=== PATIENT | male | born 1940 | race Caucasian/White ===

== ENCOUNTER → 2022-10-18 | Outpatient (CLI) | payer SELFPAY ==
--- NOTE | 2022-10-18 07:30 | RAD_ITS ---
Examination: Orbital radiographs. INDICATION: History of metal to eye. Pre-MRI. TECHNIQUE: 2 images of the orbits were obtained. COMPARISON: None FINDINGS: No metallic foreign bodies are visualized within the orbits. The paranasal sinuses are well aerated. No suspicious bony lesions are seen. There are degenerative changes of the visualized cervical spine. RAD/Orbits for Foreign Body IMPRESSION: Degenerative changes of the cervical spine. No metallic foreign body within the orbits. Electronically Signed: Deena Smith MD at 8:14 EDT ,
--- NOTE | 2022-10-18 08:30 | MRI_ITS ---
MR Pelvis WO/W Contrast 10/18/2022 8:18 AM COMPARISON: None CLINICAL HISTORY: Elevated PSA TECHNIQUE: Standard prostate MR protocol was used before and after administration of 15 cc of IV Clariscan. FINDINGS: PSA density: PSA not provided Length of membranous urethra: 19 mm Post-biopsy hemorrhage: None Multiparametric MR evaluation: Heterogeneous appearance of the central gland is consistent with benign prostatic hyperplasia. Lesion 1: LOCATION - 1.8 x 1.6 x 1.3 cm moderately T2 hypointense mass in the right medial anterior transitional zone near apex. It is very bright on DWI and very dark on ADC map. T2 - 5 DWI - 5 DCE - inconclusive Overall PI-RADS v2 score = 5 Lesion 2: LOCATION - 1.6 x 1.8 x 1.9 cm T2 dark mass like lesions in the right lateral anterior transitional zone near apex. It is slightly bright on DWI and slightly dark on ADC map. T2 - 3 DWI - 3 DCE - inconclusive Overall PI-RADS v2 score = 3 Lesion 3: LOCATION - 1.3 x 0.6 x 1.4 cm moderately T2 hypointense mass in the left posterior peripheral zone near the apex. It is slightly bright on DWI and moderately dark on ADC map. T2 - 4 DWI - 4 DCE - inconclusive Overall PI-RADS v2 score = 4 Capsular margin and neurovascular bundle: Questionable 3 mm extracapsular extension posteriorly by lesion 3. Seminal vesicles: Questionable involvement of the left seminal vesicle by lesion 3. Lymph nodes: No lymphadenopathy in the field of view. Bones: No suspicious lesions in the field of view. MRI/Pelvis W/WO Contrast IMPRESSION: 1.8 cm PI-RADS 5 lesion in the right medial anterior TZ near apex. 1.9 cm PI-RADS 3 lesion in the right lateral anterior TZ near apex. 1.3 cm PI-RADS 4 lesion in the left posterior PZ near apex. - Questionable 3 mm extracapsular extension posteriorly by lesion 3. - Questionable involvement of the left seminal vesicle by lesion 3. -No lymphadenopathy. -No suspicious bone lesions. Electronically Signed: Jae Mcpherson MD at 17:01 EDT ,
[2022-10-18 08:31] LABS: CREATININE FINGERSTICK < 0.9 mg/dL (0.70-1.30); EGFR FINGERSTICK > 60.0000 mL/min (>60)
== END | disposition home or self-care (01) ==
LOC: MRI 07:31
PROVIDERS: PCP Physician Assistant; Referring Provider Physician Assistant; Visit Provider Physician Assistant
DX: R97.20 Elevated prostate specific antigen [PSA] (principal)
CPT/HCPCS: 70030; 72197; A9575

== ENCOUNTER → 2023-07-25 | Outpatient (CLI) | payer SELFPAY | END | disposition home or self-care (01) | PROVIDERS: PCP Physician Assistant; Referring Provider Urology; Visit Provider Urology | DX: R97.20 Elevated prostate specific antigen [PSA] (principal) | CPT/HCPCS: 36415; 84153; G0103 ==

== ENCOUNTER → 2023-08-10 | Outpatient (CLI) | payer SELFPAY ==
--- NOTE | 2023-08-10 08:00 | PROSBIL_PTH ---
PATIENT: DESHAUN TAN LOC: [facility] U#:[id number] AGE/SX: 83/M ROOM: RE08/10/[address]: Dr. Herminio Larose MD : 1940 BED: DIS: 08/10/2023 SPEC #: [id number] RECD: 08/11/23 10:18 STATUS: JOLIE REQ #: [id number] ALVA: 08/10/23 08:[address]: Herminio Larose DEPT: SURGICAL PATHOLOGY RECD BY: Hilaria Reyes ENTERED: 08/11/23 10:19 SP TYPE: PROST BX ROXANNE DR: Quentin Guerra PA-C Tissues: A - PROSTATE RIGHT B - PROSTATE RIGHT C - PROSTATE RIGHT D - PROSTATE LEFT E - PROSTATE LEFT F - PROSTATE LEFT Procedures: PROSTATE BX HEADER OPERATION: Prostate biopsy PRE-OP DIAGNOSIS: Elevated PSA TISSUE SUBMITTED: A - Right apex, B - Right mid, C - Right base, D - Left apex, E - Left mid, F - Left base MICROSCOPIC DIAGNOSIS A. Right prostate, apex, core biopsy: Prostatic adenocarcinoma. Jupiter grade: 3+3=6 Number of cores involved: 1/1 Proportion of tissue involved: ~60-70% Perineural invasion: Not identified. Greatest tumor length: 0.6cm B. Right prostate, mid, core biopsy: Prostatic tissue, negative for malignancy. Chronic inflammation. C. Right prostate, base, core biopsy: Prostatic tissue, negative for malignancy. D. Left prostate, apex, core biopsy: Prostatic adenocarcinoma. Jupiter grade: 3+4=7 Number of cores involved: 1/1 Proportion of tissue involved: ~60 % Perineural invasion: Not identified. Greatest tumor length: 0.4 cm E. Left prostate, mid, core biopsy: Prostatic adenocarcinoma. Jupiter grade: 3+3=6 Number of cores involved: 1/1 Proportion of tissue involved: ~20 % Perineural invasion: Not identified. Greatest tumor length: 0.2 cm F. Left prostate, base, core biopsy: Prostatic tissue, negative for malignancy. SJ/mr 08/14/23 COMMENT Case has been reviewed in consultation with Dr. Land who concurs with the above diagnosis. IDC:AM MICROSCOPIC DESCRIPTION Slides are reviewed. GROSS DESCRIPTION A - Received is one container designated prostate, right apex. The specimen consists of one elongated fragments of light mitchell-white soft tissue measuring 1.0 cm in length and 0.1 cm in diameter. The specimen is totally submitted in one cassette. B - Received is one container designated prostate, right mid. The specimen consists of one elongated fragments of light mitchell-white soft tissue measuring 1.0 cm in length and 0.1 cm in diameter. The specimen is totally submitted in one cassette. C - Received is one container designated prostate, right base. The specimen consists of one elongated fragments of light mitchell-white soft tissue measuring 1.1 cm in length and 0.1 cm in diameter. The specimen is totally submitted in one cassette. D - Received is one container designated prostate, left apex. The specimen consists of one elongated fragments of light mitchell-white soft tissue measuring 0.6 cm in length and 0.1 cm in diameter. The specimen is totally submitted in one cassette. E - Received is one container designated prostate, left mid. The specimen consists of one elongated fragments of light mitchell-white soft tissue measuring 1.3 cm in length and 0.1 cm in diameter. The specimen is totally submitted in one cassette. F - Received is one container designated prostate, left base. The specimen consists of one elongated fragments of light mitchell-white soft tissue measuring 0.7 cm in length and 0.1 cm in diameter. The specimen is totally submitted in one cassette. ELI/ 08/11/23 TC:0 [facility]: [id number]
== END | disposition home or self-care (01) ==
LOC: LABSPEC 16:12
PROVIDERS: PCP Physician Assistant; Referring Provider Urology; Visit Provider Urology
DX: R97.20 Elevated prostate specific antigen [PSA] (principal)
CPT/HCPCS: 88305; G0416

== ENCOUNTER → 2024-05-30 | Outpatient (CLI) | payer SELFPAY | END | disposition home or self-care (01) | PROVIDERS: PCP Physician Assistant; Referring Provider Nurse Practitioner; Visit Provider Nurse Practitioner | DX: C61 Malignant neoplasm of prostate (principal) | CPT/HCPCS: 36415; 84153 ==

== ENCOUNTER 2024-06-11 13:59 | Inpatient (IN) | payer OTHER, SELFPAY ==
[2024-06-11] VITALS (9 sets, daily range): BP systolic 127–161; BP diastolic 56–93; PULSE 73–80; RESP 14–23; TEMP 36.6–37; O2SAT 91–95; BMI 23.0; BMI 22.3
[2024-06-11 16:17] LABS: Absolute Lymphocyte Count 1.51 X10^3/uL (0.83-4.51); Absolute Neutrophil Count 5.7 X10^3/uL (2.0-7.7); Basophil# 0.05 X10^3/uL; Basophil% 0.6 % (0-1); Eosinophil# 0.14 X10^3/uL; Eosinophils% 1.7 % (0-5); Hematocrit 39.2 % (40-54); Hemoglobin 13.1 g/dL (13.0-16.5); Lymphocyte # 1.51 X10^3/ul (0.83-4.51); Lymphocyte % 18.2 % (19-41); Mean Corp Hgb Conc 33.4 g/dL (32-36); Mean Corpuscular Hgb 29.2 pg (27.0-32.0); Mean Corpuscular Volume 87.3 fL (80-94); Mean Platelet Vol. 8.8 fl (6.2-12.0); Monocyte# 0.83 X10^3/uL; NRBC Flagged by Analyzer 0 % (0-5); Neutrophil # 5.67 X10^3/uL (2.7-7.7); Neutrophil % 68.2 % (47-70); Platelet Count 284 K/mm3 (150-450); RBC Distribution Width CV 12.7 % (11.6-14.6); RBC Distribution Width SD 40.6 fl (35.1-43.9); Red Blood Count 4.49 M/mm3 (4.6-6.2); White Blood Count 8.3 K/mm3 (4.4-11.0)
[2024-06-11 16:47] LABS: Anion Gap 5 (5-15); BUN 28 mg/dL (7-18); Calcium,Total 9.1 mg/dL (8.5-10.1); Chloride 105 mmol/L (98-107); Creatinine, Serum 0.93 mg/dL (0.70-1.30); EST Glomerular Filtration Rate 82 mL/min (>60); Est Glom Filt Rate - Afr Amer 99 mL/min (>60); Estimated Creatinine Clearance 60.84 ml/min; Glucose 94 mg/dL (74-106); Potassium 4.4 mmol/L (3.5-5.1); Sodium Level 138 mmol/L (136-145)
--- NOTE | 2024-06-11 17:41 | CT_ITS ---
PROCEDURE: CTA CHEST W/WO CONTRAST REASON FOR EXAM: 83-year-old male, shortness of breath x 3 months, abnormal chest x-ray per report. History of prostate cancer diagnosed 1 year ago. TECHNIQUE: CTA imaging of the chest with intravenous contrast. 3D reconstructions. CONTRAST: Administered. COMPARISON: None. FINDINGS: Hardware: None. Lymph nodes: No axillary lymphadenopathy. Prominent mediastinal lymph nodes. Heart: Normal heart size. No pericardial effusion. Mild coronary artery and aortic valvular calcifications. RV/LV Diameter Ratio: Less than 1 Thoracic Aorta: No thoracic aortic aneurysm or dissection. Mild thoracic aortic calcifications. Pulmonary Vessels: Bilateral subsegmental pulmonary emboli (for example within the left upper lobe series 2, image 206, and within the right lower lobe series 2, image 123). Most Proximal Level of Embolus (if embolus present): Subsegmental Lungs and Airways: No secretions within the central airways. Diffuse, innumerable small 1-4 mm pulmonary nodules throughout all 5 lung lobes. Trace right and moderate left pleural effusions. Near complete consolidation of the left lower lobe. Pleura: No pneumothorax. Upper Abdomen: See same day CT abdomen pelvis. Bones: Lytic osseous lesions throughout the thoracic vertebral bodies, the largest within the T2 vertebral body with invasion posteriorly into the spinal canal (series 2, image 282). CT/CTA Chest W/WO Contrast IMPRESSION: 1. Small bilateral subsegmental pulmonary emboli without evidence of right hear t strain. 2. Diffuse, innumerable miliary pulmonary opacities, lytic thoracic vertebral b karuna lesions, most compatible with pulmonary and osseous metastatic disease. 3. Trace right and moderate left pleural effusions, which are indeterminate and may represent metastatic disease. If clinically indicated, diagnostic and therapeutic thoracentesis could be performed. 4. Near-complete consolidation of the left lower lobe, which may be secondary t o pleural effusion, infectious/inflammatory etiology or additional area of metastatic disease. 5. Prominent mediastinal lymph nodes, which are also indeterminate in significa nce, however leila metastatic disease is most likely. Dr. Jorgensen discussed these findings via telephone with Dr. Poly DO at 7:29 pm on 06/11/24. One or more dose reduction techniques were used (e.g., Automated exposure contr ol, adjustment of the mA and/or kV according to patient size, use of iterative reconstruction technique). Reading [facility]: [facility]
--- NOTE | 2024-06-11 17:41 | CT_ITS ---
EXAM: ABDOMEN/PELVIS W IV CONT ONLY CLINICAL HISTORY: Prostate cancer diagnosed 1 year ago. Inguinal hernia repair. Hypertension. Shortness of breath. COMPARISON: None. TECHNIQUE: Helical CT images of the abdomen and pelvis were performed utilizing routine protocol with intravenous contrast material. Multiplanar reformations were obtained. Dose reduction techniques were used including intermediate exposure control (AEC),iterative reconstruction technique, and/or mA and/or KV dose adjustments based on patient's size. FINDINGS: Dense consolidation noted in the left lower lobe with moderate left pleural effusion. Mild right pleural effusion. The lungs demonstrates diffuse miliary nodules with some tree-in-bud opacities. Aortic valve calcifications are noted. There is a small hiatal hernia. No obvious acute abnormality of the liver, spleen or adrenal glands. The pancreas is atrophic. The gallbladder is unremarkable. No acute obstructive urinary collecting system calculus. No urinary bladder wall thickening. No hydronephrosis. 3.6 cm right midpole exophytic renal cyst. Bilateral subcentimeter too small to characterize renal low-density lesions. No acute bowel obstruction. No pneumoperitoneum. No CT evidence of acute colonic diverticulitis. Mild constipation. Narrowing noted of the sigmoid colon. No CT evidence of acute appendicitis. Mild atherosclerosis. No evidence of aortic aneurysm. No lymphadenopathy. The prostate is markedly enlarged measuring up to 7.3 cm and heterogeneous in attenuation. No significant free fluid in the abdomen and pelvis. Left inguinal hernia containing a portion of the urinary bladder. Right inguinal hernia containing unobstructed small bowel. Multiple scattered lytic lucencies noted throughout the visualized osseous structures concerning for metastases or myeloma. CT/Abdomen/Pelvis W IV Cont ONLY IMPRESSION: Dense consolidation noted in the left lower lobe with moderate left pleural eff usion. Mild right pleural effusion. The lung demonstrates diffuse miliary nodules with some tree-in-bud opacities. Findings are worrisome for metastatic disease given the constellation of findings. The differential includes infection, infl ammatory and neoplastic etiologies. Right midpole exophytic renal cyst. Bilateral subcentimeter too small to charac terize renal low-density lesions. Marked enlargement of the prostate. Mild constipation. Multiple scattered lytic lucencies noted throughout the visualized osseous stru ctures concerning for metastases or myeloma. Aortic valve calcifications. This is considered a marker for clinically signifi cant aortic stenosis. Left inguinal hernia containing a portion of the urinary bladder. Right inguinal hernia containing unobstructed small bowel. Narrowing noted of the sigmoid colon. This may be secondary to nondistention, spasm or pathologic stenosis. Consider further evaluation as clinically indicated. Reading Location: [id number]
--- NOTE | 2024-06-11 20:27 | EDS_ITS ---
HPI History of Present Illness Chief Complaint: Shortness of Breath Informant: patient and family Narrative Narrative: Patient is a 89-year-old male with history of hypertension and prostate cancer (in his chart but patient is not sure if he actually has prostate cancer to what extent today's) presenting from PCP office for abnormal chest x-ray. Patient was seen because he has been having progressively shortness of breath for the past few months. He states over the past month he has noticed exercise intolerance. He states now he gets short of breath with only about 5 minutes of mild activty. He notes that his PSA was 29 and go up to 32. He states he saw Dr. Larose and was told he should have a bone scan. He was scheduled for tomorrow but patient canceled it because he did not think he really needed it. He does note that he is on clindamycin because he had cellulitis around his nose. He states he had an intermittent cough that feels like it is in his throats. He states sometimes he does cough and feeling the need to cough something up but is not successful. He did have an episode of vomiting today. He denies any fever or chills. He has had about a 5 pound weight loss over the past few years. Denies any leg swelling. Denies a history of DVT or PE. denies any swelling of his legs. Denies any COPD or asthma history. Surgical history includes an inguinal hernia surgery. He is never had a colonoscopy. Has no other complaints or concerns at this time. [facility] Medical History Hypertension Prostate cancer Home Medications ?Medication ?Instructions ?Recorded ?Last Taken ?Type clindamycin HCl 300 mg capsule 300 mg PO Q6H infection 06/11/24 06/11/24 08:00 History 300 mg losartan 50 mg tablet 50 mg PO DAILY 06/11/24 Unkn own History Allergy/AdvReac Type Severity Reaction Status Date / Time No Known Allergies Allergy Verified 06/11/24 14:01 Surgical History H/O inguinal hernia repair History of tonsillectomy and adenoidectomy Social History household members: family housing: house Smoking Status: Never smoker alcohol intake: never substance use type: does not use ROS ROS ED Constitutional Constitutional ED: Denies chills or fever(s) Cardiovascular Cardiovascular: Denies chest pain, orthopnea, palpitations or racing heartbeat Respiratory/Chest Respiratory/Chest: Reports cough, dyspnea and dyspnea on exertion; Denies orthopnea or sputum Gastrointestinal Gastrointestinal: Denies abdominal pain, nausea or vomiting Musculoskeletal Musculoskeletal: Denies arthralgias or myalgias Integumentary Denies rash Neurologic Neurologic: Denies weakness Hematologic/Lymphatic Hematologic/Lymphatic: Denies easy bleeding or easy bruising EXAM Physical Exam Const Vital Signs: 06/11/24 13:59 06/11/24 15:40 06/11/24 15:40 Temperature 98 F Temperature Source Oral Pulse Rate 80 Respiratory Rate 16 18 Respiratory Effort Respiratory Depth Respiratory Pattern Blood Pressure 143/93 H Blood Pressure Mean 109 Pulse Ox 95 93 93 Oxygen Delivery Method Room Air Room Air Room Air 06/11/24 15:59 06/11/24 16:57 06/11/24 17:43 Temperature Temperature Source Pulse Rate 76 75 Respiratory Rate 18 20 H Respiratory Effort Normal Respiratory Depth Normal Respiratory Pattern Normal Blood Pressure 127/88 H Blood Pressure Mean 101 Pulse Ox 93 91 Oxygen Delivery Method Room Air Room Air 06/11/24 19:00 06/11/24 21:00 06/11/24 21:08 Temperature 98 F Temperature Source Pulse Rate 79 73 79 Respiratory Rate 23 H 14 23 H Respiratory Effort Respiratory Depth Respiratory Pattern Blood Pressure 127/88 H Blood Pressure Mean 101 Pulse Ox 94 93 Oxygen Delivery Method Room Air Positive well nourished and well developed General Appearance ED: well developed and NAD HEENT Reports moist mucous membranes Eyes PERRL Neck supple Resp normal respiratory effort Resp Narrative: Significantly diminished breath sounds at the left base. Coarse breath sounds at the right base. No wheezing appreciated Cardio regular rate and regular rhythm Cardio Narrative: Holosystolic murmur present GI non-tender and non-distended Extremity normal to inspection General Extremety ED: Negative for edema General Extremity: Negative for edema Neuro oriented x3 Sensorium / Orientation: alert Motor Exam: Negative for general weakness Psych mental status grossly normal Skin no wounds Skin Narrative: Chronic appearing localized area of erythema of the base of the posterior neck we will demarcated edges. MDM MDM MDM Narrative Medical decision making narrative: Patient is an 83-year-old male history of prostate cancer and has never undergone any treatment and has previously declined any further workup looking for metastatic disease presenting with progressively worsening shortness of breath. Denies any significant systemic symptoms. Had a chest x-ray outpatient today which was concerning for malignancy and recommend he come to the ER especially given his symptoms. Differential includes pulmonary emboli, pleural effusion, pneumonia, CHF, lung cancer, metastatic cancer. Patient overall well-appearing. He does drop down to the low 90s at rest intermittently. CBC shows normal white blood cell count, hemoglobin and platelets. BMP largely normal. CTA of the chest shows small bilateral subsegmental pulmonary emboli without evidence of right heart strain in addition there are diffuse innumerable miliary pulmonary opacities, lytic thoracic vertebral body lesion at T2 which are compatible with metastatic disease. He has enlarged lymph nodes concerning for metastatic disease to the mediastinum. This is a moderate left pleural effusion and near complete opacification of the left lower lobe. CT of abdomen pelvis was added on as there was concern for possible metastatic disease which shows marked enlargement of the prostate and multiple scattered lytic lucencies concerning for metastatic disease or myeloma. There is also some narrowing of the sigmoid colon. I did discuss this case with Dr. Larose, the patient's urologist. He states he happy to see the patient on consult. Given the patient's effusion and more pressing concern of dyspnea on exertion that is progressing and worsening I do think he would benefit from admission for expedited evaluation and possible thoracentesis. Case discussed with hospitalist, Dr. Garza. Patient is agreeable with plan of care. Counseled that his workup is highly concerning for metastatic prostate cancer but we do not have any definitive answers at this time. Patient started on heparin drip for his pulmonary emboli. Lab Data Attestation: I reviewed the patient's lab results. Labs: Laboratory Results - last 24 hr 06/11/24 16:07 WBC 8.3 RBC 4.49 L Hgb 13.1 Hct 39.2 L MCV 87.3 MCH 29.2 MCHC 33.4 RDW Std Deviation 40.6 RDW Coeff of Clarissa 12.7 Plt Count 284 MPV 8.8 Immature Gran % (Auto) 1.300 H Neut % (Auto) 68.2 Lymph % (Auto) 18.2 L Bartholomew % (Auto) 10.0 Eos % (Auto) 1.7 Baso % (Auto) 0.6 Absolute Neuts (auto) 5.7 Absolute Lymphs (auto) 1.51 Nucleated RBC % 0 Sodium 138 Potassium 4.4 Chloride 105 Carbon Dioxide 28.0 Anion Gap 5 BUN 28 H Creatinine 0.93 Estim Creat Clear Calc 60.84 Est GFR (MDRD) Af Amer 99 Est GFR (MDRD) Non-Af 82 BUN/Creatinine Ratio 30.0 H Glucose 94 Calcium 9.1 Radiography Diagnostic Testing: Clinical Impression(s) from Imaging Studies Abdomen/Pelvis CT 06/11/24 17:41 IMPRESSION: Dense consolidation noted in the left lower lobe with moderate left pleural effusion. Mild right pleural effusion. The lung demonstrates diffuse miliary nodules with some tree-in-bud opacities. Findings are worrisome for metastatic disease given the constellation of findings. The differential includes infection, inflammatory and neoplastic etiologies. Right midpole exophytic renal cyst. Bilateral subcentimeter too small to characterize renal low-density lesions. Marked enlargement of the prostate. Mild constipation. Multiple scattered lytic lucencies noted throughout the visualized osseous structures concerning for metastases or myeloma. Aortic valve calcifications. This is considered a marker for clinically significant aortic stenosis. Left inguinal hernia containing a portion of the urinary bladder. Right inguinal hernia containing unobstructed small bowel. Narrowing noted of the sigmoid colon. This may be secondary to nondistention, spasm or pathologic stenosis. Consider further evaluation as clinically indicated. Reading Location: [facility] Chest CTA 06/11/24 17:41 IMPRESSION: 1. Small bilateral subsegmental pulmonary emboli without evidence of right heart strain. 2. Diffuse, innumerable miliary pulmonary opacities, lytic thoracic vertebral body lesions, most compatible with pulmonary and osseous metastatic disease. 3. Trace right and moderate left pleural effusions, which are indeterminate and may represent metastatic disease. If clinically indicated, diagnostic and therapeutic thoracentesis could be performed. 4. Near-complete consolidation of the left lower lobe, which may be secondary to pleural effusion, infectious/inflammatory etiology or additional area of metastatic disease. 5. Prominent mediastinal lymph nodes, which are also indeterminate in significance, however leila metastatic disease is most likely. Dr. Jorgensen discussed these findings via telephone with Dr. Poly DO at 7:29 pm on 06/11/24. One or more dose reduction techniques were used (e.g., Automated exposure control, adjustment of the mA and/or kV according to patient size, use of iterative reconstruction technique). Reading Location: [id number] Management Discussion w/another healthcare provider: Hospitalist and [employer] Inspector Discharge Plan Dx/Rx/DC Orders Clinical Impression: Pulmonary emboli, Pleural effusion, left, Cardiac murmur, Abnormal CT of the chest, Abnormal computed tomography of abdomen and pelvis Disposition Disposition: Acute Care Hospital [facility] Discharge Date/Time: 06/11/24 22:13
--- NOTE | 2024-06-11 21:37 | PCM.HP.STD ---
HPI - General General Date of Admission: 06/11/24 Date of Service: 06/11/24 Chief Complaint: Exertional shortness of breath HPI Narrative DESHAUN TAN, is a 83 M who presented to the emergency department at [facility] on 06/11/2024 with a chief complaint of shortness of breath. Patient has a known history of prostate cancer and is unable to tell me exactly when he was diagnosed however it has been sometime. It sounds like they have been watching him with no treatment. He saw Dr. Kimble recently and was told he had a bone scan but he did not feel that there was significant urgency to this. He was scheduled for a bone scan tomorrow but patient canceled because he did not think he really needed it. Patient does report he has an intermittent cough with family that he sometimes needs to cough something up but his cough is nonproductive in nature. He has not had any fever or chills. He does not have any chest pain. He has had about a 5 pound weight loss over the past few years but nothing significant. He denies any leg swelling or redness. He has been on clindamycin recently for perinasal cellulitis. He was asked to come in to the emergency department by his primary care physician. Patient has had dyspnea for about a month. Vital signs on presentation showed temperature 98, heart rate 80, respirate 16, blood pressure was 143/93 and pulse ox was 95% on room air. CBC is unremarkable. Chemistry panel is unremarkable. CT of the abdomen pelvis with IV contrast only showed dense consolidation in the left lower lobe consistent with moderate pleural effusion, mild right pleural effusion, miliary nodules and symmetry of in bud opacities concerning for metastatic disease, right midpole exophytic renal cyst, markedly enlarged prostate, mild constipation with multiple scattered lytic lucencies throughout the osseous structures concerning for metastatic disease, aortic valve calcifications, left inguinal hernia containing a portion of the urinary bladder, right inguinal hernia containing nonobstructed small bowel, narrowing of the sigmoid colon. CTA of the chest shows small bilateral subsegmental pulmonary emboli without evidence of RV strain, diffuse and miliary pulmonary opacities with lytic thoracic vertebral body lesions concerning for pulmonary and osseous metastatic disease, trace right and moderate left pleural effusions, near complete consolidation of the left lower lobe and prominent mediastinal lymphadenopathy. Given his symptoms and extensive findings on imaging it was felt prudent to admit the patient and place him on a heparin drip and get a thoracentesis. The case was discussed with Dr. Larose by the emergency department physician and he indicated he would see him in consultation tomorrow. FOR[facility]LY [facility], [facility] Medical History Hypertension Prostate cancer Home Medications ?Medication ?Instructions ?Recorded ?Last Taken ?Type losartan 50 mg tablet 50 mg PO DAILY 06/11/24 Unknown History Allergy/AdvReac Type Severity Reaction Status Date / Time No Known Allergies Allergy Verified 06/11/24 14:01 no significant family history Surgical History H/O inguinal hernia repair History of tonsillectomy and adenoidectomy Social History (Updated 06/11/24 @ 21:[address] Sonia Garza DO) household members: family housing: house Smoking Status: Never smoker alcohol intake: never substance use type: does not use ROS Constitutional Constitutional: Reports change in weight; Denies anorexia, chills, fatigue, fever(s), malaise, night sweats, weakness or other Eyes Eyes: Denies blurry vision, change in eye color, change in vision, discharge from eye(s), double vision, erythema, eye pain, loss of vision or other ENT HEENT: Denies abnormal hearing, dysphagia, ear pain, epistaxis, headache(s), hearing loss, nasal congestion, nasal discharge, post nasal drip, sinus pressure, sore throat or other Cardiovascular Cardiovascular: Reports dyspnea on exertion; Denies chest pain, claudication, edema, lightheadedness, orthopnea, palpitations, paroxysmal nocturnal dyspnea, rapid heart rate, syncope or other Respiratory/Chest Respiratory/Chest: Reports cough and shortness of breath with exertion; Denies dyspnea, excessive phlegm production, hemoptysis, productive cough, shortness of breath at rest, wheezing or other Gastrointestinal Gastrointestinal: Denies abdominal pain, coffee ground emesis, constipation, diarrhea, dyspepsia, hematemesis, hematochezia, loose stools, melena, nausea, vomiting or other Genitourinary Genitourinary: Denies burning urination, difficulty urinating, dysuria, hematuria, nocturia, urinary frequency, urinary hesitancy, urinary incontinence, urinary urgency or other Musculoskeletal Musculoskeletal: Reports back pain and neck pain; Denies arthralgias, joint pain, joint stiffness, joint swelling, myalgias or other Neurologic Neurologic: Denies abnormal gait, abnormal speech, confusion, disequilibrium, dizziness, focal weakness, headache(s), numbness, paresthesias, seizure-like activity, seizures, syncope, tingling, tremor(s) or other Psychiatric Psychiatric: Denies anxiety, depression, homicidal ideation, suicidal ideation or other Endocrine Endocrinology: Denies change in body appearance, cold intolerance, excessive sweating, heat intolerance, polydipsia, polyuria or other Hematologic/Lymphatic Hematologic/Lymphatic: Denies anemia, easy bleeding, easy bruising, lymphadenopathy or other Allergic/Immunologic Allergic/Immunologic: Denies rhinitis, hives, eczemia, asthma or other Vital Signs Vital Signs Vital Signs: 06/11/24 13:59 06/11/24 15:40 06/11/24 15:40 Temperature 98 F Temperature Source Oral Pulse Rate 80 Respiratory Rate 16 18 Respiratory Effort Respiratory Depth Respiratory Pattern Blood Pressure 143/93 H Blood Pressure Mean 109 Pulse Ox 95 93 93 Oxygen Delivery Method Room Air Room Air Room Air 06/11/24 15:59 06/11/24 16:57 06/11/24 17:43 Temperature Temperature Source Pulse Rate 76 75 Respiratory Rate 18 20 H Respiratory Effort Normal Respiratory Depth Normal Respiratory Pattern Normal Blood Pressure 127/88 H Blood Pressure Mean 101 Pulse Ox 93 91 Oxygen Delivery Method Room Air Room Air 06/11/24 19:00 06/11/24 21:08 Temperature 98 F Temperature Source Pulse Rate 79 79 Respiratory Rate 23 H 23 H Respiratory Effort Respiratory Depth Respiratory Pattern Blood Pressure 127/88 H Blood Pressure Mean 101 Pulse Ox 93 Oxygen Delivery Method Weight Weight: 72.745 kg Body Mass Index (BMI) 23.0 Physical Exam Const alert, oriented x3, no apparent distress, average body habitus and well nourished Constitutional Narrative: Very pleasant, elderly, white male, walking around the room, appears comfortable, nontoxic, son at bedside General Appearance: cooperative HEENT normocephalic, head/scalp atraumatic, hearing grossly normal bilaterally and moist oral mucous membranes HEENT Narrative: Mallampati 2, no thrush Eyes EOMs intact bilaterally and conjunctivae normal Eyes Narrative: No scleral icterus Neck supple Neck Narrative: Trachea midline, no thyroid enlargement Resp normal respiratory effort, no retractions and no use of accessory muscles Resp Narrative: Markedly diminished in left lower lobe to mid lung field, otherwise clear to auscultation Auscultation: Negative for rales, rhonchi or wheezes Cardio regular rate, regular rhythm, S1 normal heart sound, S2 normal heart sound, no murmurs, no rub, no gallops and no clicks GI normal to inspection, nondistended, normoactive bowel sounds, soft to palpation and non-tender Extremity no clubbing, cyanosis or edema Extremity Narrative: Pedal and radial pulses are 2+ Neuro moves all extremities and no focal motor deficits Speech: speech normal Psych affect normal Psych Narrative: Very pleasant, interacts appropriately Results Lab / Micro Data 06/11/24 16:07 06/11/24 16:07 Labs: Laboratory Results - last 24 hr 06/11/24 16:07: WBC 8.3, RBC 4.49 L, Hgb 13.1, Hct 39.2 L, MCV 87.3, MCH 29.2, MCHC 33.4, RDW Std Deviation 40.6, RDW Coeff of Clarissa 12.7, Plt Count 284, MPV 8.8, Immature Gran % (Auto) 1.300 H, Neut % (Auto) 68.2, Lymph % (Auto) 18.2 L, Concho % (Auto) 10.0, Eos % (Auto) 1.7, Baso % (Auto) 0.6, Absolute Neuts (auto) 5.7, Absolute Lymphs (auto) 1.51, Nucleated RBC % 0, Sodium 138, Potassium 4.4, Chloride 105, Carbon Dioxide 28.0, Anion Gap 5, BUN 28 H, Creatinine 0.93, Estim Creat Clear Calc 60.84, Est GFR (MDRD) Af Amer 99, Est GFR (MDRD) Non-Af 82, BUN/Creatinine Ratio 30.0 H, Glucose 94, Calcium 9.1 Imaging Radiology Impression Abdomen/Pelvis CT 06/11/24 17:41 IMPRESSION: Dense consolidation noted in the left lower lobe with moderate left pleural effusion. Mild right pleural effusion. The lung demonstrates diffuse miliary nodules with some tree-in-bud opacities. Findings are worrisome for metastatic disease given the constellation of findings. The differential includes infection, inflammatory and neoplastic etiologies. Right midpole exophytic renal cyst. Bilateral subcentimeter too small to characterize renal low-density lesions. Marked enlargement of the prostate. Mild constipation. Multiple scattered lytic lucencies noted throughout the visualized osseous structures concerning for metastases or myeloma. Aortic valve calcifications. This is considered a marker for clinically significant aortic stenosis. Left inguinal hernia containing a portion of the urinary bladder. Right inguinal hernia containing unobstructed small bowel. Narrowing noted of the sigmoid colon. This may be secondary to nondistention, spasm or pathologic stenosis. Consider further evaluation as clinically indicated. Reading Location: [id number] Chest CTA 06/11/24 17:41 IMPRESSION: 1. Small bilateral subsegmental pulmonary emboli without evidence of right heart strain. 2. Diffuse, innumerable miliary pulmonary opacities, lytic thoracic vertebral body lesions, most compatible with pulmonary and osseous metastatic disease. 3. Trace right and moderate left pleural effusions, which are indeterminate and may represent metastatic disease. If clinically indicated, diagnostic and therapeutic thoracentesis could be performed. 4. Near-complete consolidation of the left lower lobe, which may be secondary to pleural effusion, infectious/inflammatory etiology or additional area of metastatic disease. 5. Prominent mediastinal lymph nodes, which are also indeterminate in significance, however leila metastatic disease is most likely. Dr. Jorgensen discussed these findings via telephone with Dr. Poly DO at 7:29 pm on 06/11/24. One or more dose reduction techniques were used (e.g., Automated exposure control, adjustment of the mA and/or kV according to patient size, use of iterative reconstruction technique). Reading Location: [id number] Assessment & Plan Assessment/Plan (1) Pleural effusion, left: (2) Pulmonary emboli: (3) Abnormal CT of the chest: (4) Abnormal computed tomography of abdomen and pelvis: (5) Cardiac murmur: PLAN: Plan Exertional shortness of breath secondary to moderate left pleural effusion and bilateral subsegmental pulmonary emboli -No RV strain noted on CTA of the chest so will defer echocardiogram -Start heparin drip for now given need for thoracentesis Would plan to transition to oral agents versus Lovenox after thoracentesis can be performed -Thoracentesis to be done tomorrow -N.p.o. after midnight -Fluid studies ordered -Check serum LDH in a.m. -Fluid cytologies and cultures to be sent -No need for vascular input Cardiac murmur -Imaging shows thickening of the aortic valve and exam is consistent with aortic valve stenosis -Patient asymptomatic so will defer echocardiogram for now Abnormal CT of the chest/CT of the abdomen pelvis -Highly suspicious for metastatic disease with known history of prostate cancer -Mets noted to lung and osseous structures -PSA on 05/30/2024 was 32.6 Essential hypertension -continue home losartan DVT prophylaxis -Full treatment with heparin drip due to PE CODE STATUS -DNR CCA with no intubation per discussion prior to admission with son at bedside Charges/Coding Visit Charges Inpatient E&M: 73062 Init Hosp L2
[2024-06-11] MEDS: Heparin Injection (Vial) 5,000 UNIT/ML VIAL 4000 UNIT IV (21:49)
[2024-06-11] MEDS: HEPARIN/D5w 25,000 UNITS 25,000 UNITS/250 ML IV.SOLN. 9 UNITS CONT INF (21:51)
[2024-06-11 22:06] LABS: International Normalized Ratio 1.1; Prothrombin Time (Protime)PT. 14.7 SECONDS (11.7-14.9)
[2024-06-11 22:07] LABS: Partial Thromboplast Time 25.6 Seconds (24.1-36.2)
[2024-06-12] VITALS (10 sets, daily range): BP systolic 124–164; BP diastolic 83–102; PULSE 75–86; RESP 16–20; TEMP 36.6–37; O2SAT 91–94; BMI 22.2
--- NOTE | 2024-06-12 | IMM_PTH ---
PATIENT: DESHAUN TAN LOC: [facility] U#:[id number] AGE/SX: 83/M ROOM: [facility] RE06/11/[address]: Dr. Mukesh Red DO : 1940 BED: 1 DIS: 06/13/2024 SPEC #: [id number] RECD: 06/13/24 10:26 STATUS: [place] REQ #: [id number] ALVA: 06/12/24 00:[address]: Mukesh Red DEPT: IMMUNOHISTOCHEMISTRY RECD BY: Meek Porter ENTERED: 06/13/24 10:28 SP TYPE: IMMUNO OTHR DR: JEFFRY Frye Dr., MD Dr. Kathryn Lee, Tissues: THORACIC FLUID Procedures: RCC (add) NAPSIN A (add) Lobo Ret (add) CK20 (add) CK5-6 (add) CK7 (add) CK8 (add) HEP PAR (add) TTF1 (add) Vimentin (add) Pankeratin (initial) P40 (add) PSAP (add) CD68 (ADD) MOC-31 (add) PHYSICIAN & INSTITUTION [place] [id number] SPECIMEN INFORMATION: Tissue Source: Thoracentesis fluid Clinical Info: Left effusion Specimen Number: [id number] CPT code: 79224,43093s00 METHODOLOGY: Deparaffinized sections of prefer/formalin-fixed tissue or PAP/DQ stained slides are incubated with monoclonal/polyclonal antibodies/oligonucleotide probes. Localization is made via biotin free immunoperoxidase method. Appropriate controls are performed and reacted as expected. Results on target cell population are indicated in the following table: RESULTS: ANTIBODY / CLONE RESULT AE1-3 (AE1/AE3/PCK26) positive CK7 (OV-TL12/30) positive CK8 (38yfzyX32) positive CK20 (KS20.8) positive, focal MOC-31 (4561) positive Vimentin (V9) negative CD68 (KP-1) negative TTF-1 (8G7G3/1) positive Napsin A (Rabbit Polyclonal) positive HepPar (OCh1E5) negative RCC (PN-15) negative PSAP (PASE/4LJ) negative CALRET (polyclonal) negative CK5-6 (D5 & 1684) negative P40 (BC28) negative These tests were developed and their performance characteristics determined by [facility]. They may not have been cleared or approved by the U.S. Food and Drug Administration. The FDA has determined that such clearance or approval is not necessary. The above immunohistochemical/dualISH markers are ordered and reviewed by the Pathologist. INTERPRETATION: Thoracentesis fluid for cytology, cellblock: Malignant cells present derived from metastatic non-small cell carcinoma, favor adenocarcinoma. See comment. COMMENT: IHC profile favors lung primary. ELI. 06/14/2024
[2024-06-12] MEDS: 0.9% Saline Lock 10 ML Syringe IV (02:38)
[2024-06-12] MEDS: Acetaminophen 500 MG Tablet 1000 MG PO ×3 (02:38→21:02)
[2024-06-12 04:16] LABS: Absolute Neutrophil Count 7.4 X10^3/uL (2.0-7.7); Basophil# 0.06 X10^3/uL; Basophil% 0.6 % (0-1); Eosinophil# 0.22 X10^3/uL; Eosinophils% 2.2 % (0-5); Hematocrit 35.7 % (40-54); Hemoglobin 12.1 g/dL (13.0-16.5); Lymphocyte % 13.9 % (19-41); Mean Corp Hgb Conc 33.9 g/dL (32-36); Mean Corpuscular Hgb 29.2 pg (27.0-32.0); Mean Platelet Vol. 9.1 fl (6.2-12.0); Monocyte# 0.86 X10^3/uL; Monocyte% 8.5 % (0-10); NRBC Flagged by Analyzer 0 % (0-5); Neutrophil # 7.42 X10^3/uL (2.7-7.7); Neutrophil % 73.6 % (47-70); Platelet Count 267 K/mm3 (150-450); RBC Distribution Width CV 12.5 % (11.6-14.6); RBC Distribution Width SD 39.1 fl (35.1-43.9); Red Blood Count 4.15 M/mm3 (4.6-6.2); White Blood Count 10.1 K/mm3 (4.4-11.0)
[2024-06-12 04:39] LABS: Partial Thromboplast Time 44.3 Seconds (24.1-36.2)
[2024-06-12 04:58] LABS: ALB/GLOB Ratio 0.8 RATIO (0.9-2.4); AST(SGOT) 27 U/L (15-37); Alanine Aminotransfer ALT/SGPT 25 U/L (16-61); Albumin, Serum 2.7 g/dL (3.2-5.0); Alkaline Phosphatase 129 U/L (45-117); Anion Gap 8 (5-15); BUN 22 mg/dL (7-18); BUN/Creat Ratio 25.9 RATIO (10-20); Calcium,Total 8.8 mg/dL (8.5-10.1); Chloride 106 mmol/L (98-107); Creatinine, Serum 0.85 mg/dL (0.70-1.30); EST Glomerular Filtration Rate 91 mL/min (>60); Est Glom Filt Rate - Afr Amer 111 mL/min (>60); Estimated Creatinine Clearance 64.51 ml/min; Globulin 3.2 g/dL (2.2-4.2); Glucose 108 mg/dL (74-106); LDH 216 U/L (87-241); Magnesium 2.3 mg/dL (1.6-2.6); Phosphorus 3.2 mg/dL (2.5-4.9); Potassium 3.9 mmol/L (3.5-5.1); Protein, Total 5.9 g/dL (6.4-8.2); Sodium Level 139 mmol/L (136-145)
--- NOTE | 2024-06-12 07:37 | CON.PCM.UR_ITS ---
HPI Consult Data Date of Consult: 06/12/24 HPI Narrative Reason for Consultation: Prostate cancer HPI Narrative: DESHAUN TAN, is a 83 M who presents to the hospital with a pleural effusion, and pulmonary embolism, CAT scan demonstrates that he has diffuse metastatic lytic and blastic lesions throughout his bones he does have a history of prostate cancer high PSA. In the past the patient has declined metastatic evaluation with CAT scans and bone scans etc. in fact recently a bone scan was ordered and he canceled the bone scan. But he came in with shortness of breath and he was found to have metastatic disease I explained the disease of the patient recommended that he start treatment with hormone deprivation therapy for now while in the hospital I will put him on high-dose Casodex and he can follow-up in my office to start hormone deprivation therapy. Patient was instructed to call to make an appointment to see me after his discharge from the hospital and after being treated for his pleural effusion and pulmonary embolism. Call me with questions. FORMERLY [facility], LATER [facility] Medical History Hypertension Prostate cancer Home Medications ?Medication ?Instructions ?Recorded ?Last Taken ?Type clindamycin HCl 300 mg capsule 300 mg PO Q6H infection 06/11/24 06/11/24 08:00 History 300 mg losartan 50 mg tablet 50 mg PO DAILY 06/11/24 Unkn own History Allergy/AdvReac Type Severity Reaction Status Date / Time No Known Allergies Allergy Verified 06/11/24 14:01 Family History no significant family his Surgical History H/O inguinal hernia repair History of tonsillectomy and adenoidectomy Social History household members: family housing: house Smoking Status: Never smoker alcohol intake: never substance use type: does not use Lab / Micro Data 06/12/24 03:52 06/12/24 03:50 Labs: Laboratory Results - last 24 hr 06/11/24 16:07: WBC 8.3, RBC 4.49 L, Hgb 13.1, Hct 39.2 L, MCV 87.3, MCH 29.2, MCHC 33.4, RDW Std Deviation 40.6, RDW Coeff of Clarissa 12.7, Plt Count 284, MPV 8.8, Immature Gran % (Auto) 1.300 H, Neut % (Auto) 68.2, Lymph % (Auto) 18.2 L, Craig % (Auto) 10.0, Eos % (Auto) 1.7, Baso % (Auto) 0.6, Absolute Neuts (auto) 5.7, Absolute Lymphs (auto) 1.51, Nucleated RBC % 0, Sodium 138, Potassium 4.4, Chloride 105, Carbon Dioxide 28.0, Anion Gap 5, BUN 28 H, Creatinine 0.93, Estim Creat Clear Calc 60.84, Est GFR (MDRD) Af Amer 99, Est GFR (MDRD) Non-Af 82, B UN/Creatinine Ratio 30.0 H, Glucose 94, Calcium 9.1 06/11/24 21:40: PT 14.7, INR 1.1, APTT 25.6 06/12/24 03:50: APTT 44.3 H, Sodium 139, Potassium 3.9, Chloride 106, Carbon Dioxide 25.0, Anion Gap 8, BUN 22 H, Creatinine 0.85, Estim Creat Clear Calc 64.51, Est GFR (MDRD) Af Amer 111, Est GFR (MDRD) Non-Af 91, BUN/Creatinine Ratio 25.9 H, Glucose 108 H, Calcium 8.8, Phosphorus 3.2, Magnesium 2.3, Total Bilirubin 0.50, AST 27, ALT 25, Alkaline Phosphatase 129 H, Lactate Dehydrogenase 216, Total Protein 5.9 L, Albumin 2.7 L, Globulin 3.2, A lbumin/Globulin Ratio 0.8 L 06/12/24 03:52: WBC 10.1, RBC 4.15 L, Hgb 12.1 L, Hct 35.7 L, MCV 86.0, MCH 29.2, MCHC 33.9, RDW Std Deviation 39.1, RDW Coeff of Clarissa 12.5, Plt Count 267, MPV 9.1, Immature Gran % (Auto) 1.200 H, Neut % (Auto) 73.6 H, Lymph % (Auto) 13.9 L, Craig % (Auto) 8.5, Eos % (Auto) 2.2, Baso % (Auto) 0.6, Absolute Neuts (auto) 7.4, Absolute Lymphs (auto) 1.40, Nucleated RBC % 0 Imaging Radiology Impression Abdomen/Pelvis CT 06/11/24 17:41 IMPRESSION: Dense consolidation noted in the left lower lobe with moderate left pleural effusion. Mild right pleural effusion. The lung demonstrates diffuse miliary nodules with some tree-in-bud opacities. Findings are worrisome for metastatic disease given the constellation of findings. The differential includes infection, inflammatory and neoplastic etiologies. Right midpole exophytic renal cyst. Bilateral subcentimeter too small to characterize renal low-density lesions. Marked enlargement of the prostate. Mild constipation. Multiple scattered lytic lucencies noted throughout the visualized osseous structures concerning for metastases or myeloma. Aortic valve calcifications. This is considered a marker for clinically significant aortic stenosis. Left inguinal hernia containing a portion of the urinary bladder. Right inguinal hernia containing unobstructed small bowel. Narrowing noted of the sigmoid colon. This may be secondary to nondistention, spasm or pathologic stenosis. Consider further evaluation as clinically indicated. Reading Location: [facility] Chest CTA 06/11/24 17:41 IMPRESSION: 1. Small bilateral subsegmental pulmonary emboli without evidence of right heart strain. 2. Diffuse, innumerable miliary pulmonary opacities, lytic thoracic vertebral body lesions, most compatible with pulmonary and osseous metastatic disease. 3. Trace right and moderate left pleural effusions, which are indeterminate and may represent metastatic disease. If clinically indicated, diagnostic and therapeutic thoracentesis could be performed. 4. Near-complete consolidation of the left lower lobe, which may be secondary to pleural effusion, infectious/inflammatory etiology or additional area of metastatic disease. 5. Prominent mediastinal lymph nodes, which are also indeterminate in significance, however leila metastatic disease is most likely. Dr. Jorgensen discussed these findings via telephone with Dr. Poly DO at 7:29 pm on 06/11/24. One or more dose reduction techniques were used (e.g., Automated exposure control, adjustment of the mA and/or kV according to patient size, use of iterative reconstruction technique). Reading Location: [facility]
[2024-06-12] MEDS: Losartan Potassium 50 MG Tablet PO (09:04)
[2024-06-12] MEDS: Lidocaine 2% (20 ml mdv) 20 ML Vial INFILT (10:29)
--- NOTE | 2024-06-12 10:34 | FLU_PTH ---
PATIENT: DESHAUN TAN LOC: [facility] U#:[id number] AGE/SX: 83/M ROOM: [facility] RE06/11/[address]: Dr. Mukesh Red DO : 1940 BED: 1 DIS: 06/13/2024 SPEC #: [id number] RECD: 06/12/24 10:52 STATUS: JOLIE REQ #: [id number] ALVA: 06/12/24 10:[address]: Mukesh Red DEPT: CYTOLOGY RECD BY: Hilaira Reyes ENTERED: 06/12/24 13:35 SP TYPE: Fluid OTHR DR: JEFFRY Frye Dr., MD Dr. Kathryn Lee, DO Tissues: THORACIC FLUID Procedures: Special Stain Group II Surgery Specimen Level IV Cytospin Fluid HEADER OPERATION: Ultrasound guided thoracentesis PRE-OP DIAGNOSIS: Left effusion TISSUE SUBMITTED: Thoracentesis fluid for cytology DIAGNOSIS CYTOLOGY Thoracentesis fluid for cytology (cytospins and cellblock): Malignant cells present derived from metastatic non-small cell carcinoma, favor adenocarcinoma. See note and comment. NOTE: IHC profile ([id number]) favors lung primary. mr 06/13/2024 COMMENT Immunohistochemistry ([id number]) supports the above diagnosis. Please make reference to previous specimen [id number] right prostate apex, left prostate apex and left prostate mid with diagnosis of prostatic adenocarcinoma. Clinical correlation and appropriate follow up are necessary. CYTOLOGY STUDY Slides are reviewed. CYTOLOGY GROSS Received is 80 ml of yellow-cloudy fluid labeled with the patient's name and and designated per the requisition as Thoracentesis fluid. Submitted for cytology preparation including cell block. Mr 06/12/2024 TC:0 CPT: 57128,13687
--- NOTE | 2024-06-12 10:45 | RAD_ITS ---
PROCEDURE: CHEST INSP/EXP 2 VIEW REASON FOR EXAM: Post thoracentesis. TECHNIQUE: AP portable inspiratory and expiratory chest. 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 RAD/Chest Insp/Exp 2 View IMPRESSION: Compared to the CT of 06/11/2024, the lung parenchyma is unchanged. A small left pleural effusion appears diminished since the prior examination. No pneumothorax is noted. No new or worsened pneumonic process is seen. The cardiomediastinal silhouette is stable, without evidence of cardiomegaly. Reading Location: [id number]
[2024-06-12] MEDS: BICALUTAMIDE 50 MG TABLET 150 MG PO (11:14)
--- NOTE | 2024-06-12 11:15 | PCM.OPRPT ---
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 Garza INDICATION: Male, 83 years old. Pleural effusion. PROVIDER: Aziza Reddy CNP PROCEDURE: The risks, benefits, and alternatives to the procedure were explained to the patient. The specific risks of bleeding, infection, and pneumothorax requiring chest tube insertion were discussed and accepted. Written informed consent was obtained. The patient was placed in the sitting, upright position. Ultrasonographic evaluation of the bilateral lower pleural spaces was carried out. An adequate pocket was identified in the left lower lobe. The overlying skin was prepped with chlorhexidine and draped in sterile fashion. 2 % lidocaine was administered subcutaneously for local anesthesia. Under ultrasound guidance, a 5-Yoruba thoracentesis needle/catheter system was advanced into the left posterior lower pleural fluid collection. 920 ml of clear dark yellow colored fluid was drained. The catheter was removed, and a sterile dressing was applied. The patient tolerated the procedure well. A chest x-ray was ordered. IMPRESSION: Successful ultrasound guided thoracentesis of left pleural effusion. Surgical Findings: None Complications Complications: No
--- NOTE | 2024-06-12 11:20 | CASEMGMT ---
RN CM Face to Face with patient for initial transition planning/care coordination assessment. RN CM introduced self and role at [facility]. Patient lying in bed, alert and oriented. Patient willing to participate in assessment and is able to answer all questions appropriately. Care providers, pharmacy, and demographics verified. Strata: 1 PCP: Pal Specialists: Lachelle, urologist Preferred Pharmacy: [facility] Insurance: none Prescription Benefit: none Living Will/HPOA: yes, connor Ahmadi LNOK: , son Living Arrangements: Patient lives with in a 2 story home with bed and bath on first floor, 2 steps to enter. Patient is independent at home. Transportation: self, son DME/HHC: Patient states he has walker and grab bars at home. No previous HHC or SNF Patient wishes to discharge home, denies need for home health at this time. Patient states he has no further needs or concerns at this time. CM to follow for discharge planning needs that may arise. Disposition Plan: Patient to discharge home with family support and follow-up plans in place. Earnestine TURK, RN, CM
[2024-06-12 11:41] LABS: Cytology, Body Fluid / CSF SEE PATHOLOGY REPORT
[2024-06-12 12:25] LABS: Body Fluid Mononuclear WBC # 0.602 10^3/uL; Body Fluid Polynuclear WBC # 0.067 10^3/uL; Body Fluid Total Cells Counted 0.715 10^3/ul; White Blood Count/Body Fluid 0.669 10^3/uL
[2024-06-12 13:03] LABS: Glucose, Body Fluid 106 mg/dL (40-70); LDH,Body Fluid 174 Units/L (Not Establ.); Protein, Body Fluid 3.9 g/dL (Not Establ.)
[2024-06-12 13:04] LABS: Auto B Fluid Analyzer BKGD Ct COUNTS W/IN LIMITS (W/IN LIMITS); Color/Body Fluid YELLOW; Source- Body Fluid THORACENTESIS
[2024-06-12 13:05] LABS: Appearance/Body Fluid CLEAR
[2024-06-12 13:35] LABS: Red Cell Count/Body Fluid 280 /mm3
[2024-06-12 13:46] LABS: Lymphocytes 66 %; Mesothelial Cells 9 %; Monocytes 7 %; Neutrophil (Segs) 11 %; Other Cell Type/BF 7 %
[2024-06-12 13:47] LABS: Body Fluid QC Type(s) BF1Q
--- NOTE | 2024-06-12 15:50 | PCM.PN.HOSP ---
Reason for Visit Reason for Visit: Diagnoses Other pulmonary embolism without acute cor pulmonale (06/11/24) Pleural effusion, not elsewhere classified (06/11/24) Cardiac murmur, unspecified (06/11/24) Abnormal findings on diagnostic imaging of other abdominal regions, including retroperitoneum (06/11/24) Abnormal findings on diagnostic imaging of other specified body structures (06/11/24) Subjective Subjective Denies current complaints. Objective Data Objective Data Vital Signs: Vital Signs Temp Pulse Resp BP Pulse Ox O2 Del Method 36.8 C 80 16 147/94 H 93 Room Air 06/12/24 11:12 06/12/24 11:12 06/12/24 11:12 06/12/24 11:12 06/12/24 11:12 06/12/24 11:12 Oxygen Delivery Method Room Air Weight: 70.5 kg Body Mass Index (BMI) 22.2 Intake & Output: Intake and Output for Last 24 Hours 06/10/24 06/11/24 06/12/24 23:59 23:59 23:59 Intake Total 165.1 / 165.1 Output Total 1320 / 1320 Balance -1154.9 / -1154.9 Lab / Micro Data 06/12/24 03:52 06/12/24 03:50 Labs: Laboratory Results - last 24 hr 06/11/24 10:34: Fluid Glucose 106 H, Fluid Total Protein 3.9, Fluid LDH 174 06/11/24 16:07: WBC 8.3, RBC 4.49 L, Hgb 13.1, Hct 39.2 L, MCV 87.3, MCH 29.2, MCHC 33.4, RDW Std Deviation 40.6, RDW Coeff of Clarissa 12.7, Plt Count 284, MPV 8.8, Immature Gran % (Auto) 1.300 H, Neut % (Auto) 68.2, Lymph % (Auto) 18.2 L, [place] % (Auto) 10.0, Eos % (Auto) 1.7, Baso % (Auto) 0.6, Absolute Neuts (auto) 5.7, Absolute Lymphs (auto) 1.51, Nucleated RBC % 0, Sodium 138, Potassium 4.4, Chloride 105, Carbon Dioxide 28.0, Anion Gap 5, BUN 28 H, Creatinine 0.93, Estim Creat Clear Calc 60.84, Est GFR (MDRD) Af Amer 99, Est GFR (MDRD) Non-Af 82, BUN/Creatinine Ratio 30.0 H, Glucose 94, Calcium 9.1 06/11/24 21:40: PT 14.7, INR 1.1, APTT 25.6 06/12/24 03:50: APTT 44.3 H, Sodium 139, Potassium 3.9, Chloride 106, Carbon Dioxide 25.0, Anion Gap 8, BUN 22 H, Creatinine 0.85, Estim Creat Clear Calc 64.51, Est GFR (MDRD) Af Amer 111, Est GFR (MDRD) Non-Af 91, BUN/Creatinine Ratio 25.9 H, Glucose 108 H, Calcium 8.8, Phosphorus 3.2, Magnesium 2.3, Total Bilirubin 0.50, AST 27, ALT 25, Alkaline Phosphatase 129 H, Lactate Dehydrogenase 216, Total Protein 5.9 L, Albumin 2.7 L, Globulin 3.2, Albumin/Globulin Ratio 0.8 L 06/12/24 03:52: WBC 10.1, RBC 4.15 L, Hgb 12.1 L, Hct 35.7 L, MCV 86.0, MCH 29.2, MCHC 33.9, RDW Std Deviation 39.1, RDW Coeff of Clarissa 12.5, Plt Count 267, MPV 9.1, Immature Gran % (Auto) 1.200 H, Neut % (Auto) 73.6 H, Lymph % (Auto) 13.9 L, [place] % (Auto) 8.5, Eos % (Auto) 2.2, Baso % (Auto) 0.6, Absolute Neuts (auto) 7.4, Absolute Lymphs (auto) 1.40, Nucleated RBC % 0 06/12/24 10:34: Fluid Source THORACENTESIS, Fluid Color YELLOW, Fluid Appearance CLEAR, Fluid WBC 0.669, Fluid RBC 280, Fluid Tot Cell Count 0.715, Fld Polynuclear WBCs # 0.067, Fld Polynuclear WBCs % 10.0, Fluid Mononuclear WBCs 0.602, Fld Mononuclear WBCs % 90.0, Fluid Neutrophils 11, Fluid Lymphocytes 66, Fluid Monocytes 7, Fld Mesothelial Cells 9, Fluid Other Cells 7, Fl Pathologist Comment May follow, Fluid Comment 2 SEE COMMENT 06/12/24 11:00: APTT 51.0 H Radiography Diagnostic Testing: Radiology Impression Abdomen/Pelvis CT 06/11/24 17:41 IMPRESSION: Dense consolidation noted in the left lower lobe with moderate left pleural effusion. Mild right pleural effusion. The lung demonstrates diffuse miliary nodules with some tree-in-bud opacities. Findings are worrisome for metastatic disease given the constellation of findings. The differential includes infection, inflammatory and neoplastic etiologies. Right midpole exophytic renal cyst. Bilateral subcentimeter too small to characterize renal low-density lesions. Marked enlargement of the prostate. Mild constipation. Multiple scattered lytic lucencies noted throughout the visualized osseous structures concerning for metastases or myeloma. Aortic valve calcifications. This is considered a marker for clinically significant aortic stenosis. Left inguinal hernia containing a portion of the urinary bladder. Right inguinal hernia containing unobstructed small bowel. Narrowing noted of the sigmoid colon. This may be secondary to nondistention, spasm or pathologic stenosis. Consider further evaluation as clinically indicated. Reading Location: [facility] Chest CTA 06/11/24 17:41 IMPRESSION: 1. Small bilateral subsegmental pulmonary emboli without evidence of right heart strain. 2. Diffuse, innumerable miliary pulmonary opacities, lytic thoracic vertebral body lesions, most compatible with pulmonary and osseous metastatic disease. 3. Trace right and moderate left pleural effusions, which are indeterminate and may represent metastatic disease. If clinically indicated, diagnostic and therapeutic thoracentesis could be performed. 4. Near-complete consolidation of the left lower lobe, which may be secondary to pleural effusion, infectious/inflammatory etiology or additional area of metastatic disease. 5. Prominent mediastinal lymph nodes, which are also indeterminate in significance, however leila metastatic disease is most likely. Dr. Jorgensen discussed these findings via telephone with Dr. Poly DO at 7:29 pm on 06/11/24. One or more dose reduction techniques were used (e.g., Automated exposure control, adjustment of the mA and/or kV according to patient size, use of iterative reconstruction technique). Reading Location: [id number] Chest X-Ray 06/12/24 10:45 IMPRESSION: Compared to the CT of 06/11/2024, the lung parenchyma is unchanged. A small left pleural effusion appears diminished since the prior examination. No pneumothorax is noted. No new or worsened pneumonic process is seen. The cardiomediastinal silhouette is stable, without evidence of cardiomegaly. Reading Location: [address] Physical Exam Const alert and no apparent distress Constitutional Narrative: up in bed. non-toxic. afebrile. HEENT head/scalp atraumatic and moist oral mucous membranes Extremity normal to inspection, full ROM and no clubbing, cyanosis or edema Neuro Sensorium / Orientation: awake, alert and oriented to person Assessment & Plan Assessment/Plan (1) Pulmonary emboli: PLAN: Likely malignancy-induced. On heparin gtt. Transition to DOAC if no further needs for intervention. (2) Pleural effusion, left: PLAN: Underwent thoracentesis on 06/12. Likely exudative based on the protein. Cytology sent off. PLAN: Plan Prostate cancer. stage IV: started on Casodex. Patient to follow up with Dr. Larose to start hormone deprivation therapy. Dispostion: if remains stable, possible discharge 06/13 Charges/Coding Visit Charges Inpatient E&M: 43204 Subs Hosp L2
[2024-06-12] MEDS: HEPARIN/D5w 25,000 UNITS 25,000 UNITS/250 ML IV.SOLN. 11 UNITS CONT INF (19:39)
[2024-06-12 21:28] LABS: Partial Thromboplast Time 76.5 Seconds (24.1-36.2)
[2024-06-13 00:25] VITALS: BP 157/90; PULSE 83; RESP 18; TEMP 36.6; O2SAT 92
[2024-06-13 03:58] VITALS: BMI 21.5
[2024-06-13 03:59] LABS: Partial Thromboplast Time 66.8 Seconds (24.1-36.2)
[2024-06-13 05:10] VITALS: BP 156/98; PULSE 77; RESP 16; TEMP 37.2; O2SAT 92
[2024-06-13] MEDS: Acetaminophen 500 MG Tablet 1000 MG PO (05:13)
[2024-06-13 08:05] VITALS: BP 157/95; PULSE 78; RESP 16; TEMP 36.9; O2SAT 92
[2024-06-13] MEDS: Losartan Potassium 50 MG Tablet PO (08:06)
[2024-06-13] MEDS: BICALUTAMIDE 50 MG TABLET 150 MG PO (08:07)
--- NOTE | 2024-06-13 08:44 | PN.HOSP_ITS ---
Reason for Visit Reason for Visit: Diagnoses Other pulmonary embolism without acute cor pulmonale (06/11/24) Pleural effusion, not elsewhere classified (06/11/24) Cardiac murmur, unspecified (06/11/24) Abnormal findings on diagnostic imaging of other abdominal regions, including retroperitoneum (06/11/24) Abnormal findings on diagnostic imaging of other specified body structures (06/11/24) Subjective Subjective Feels well. No complaints. Objective Data Objective Data Vital Signs: Vital Signs Temp Pulse Resp BP Pulse Ox O2 Del Method 36.9 C 78 16 157/95 H 92 Room Air 06/13/24 08:05 06/13/24 08:05 06/13/24 08:05 06/13/24 08:05 06/13/24 08:05 06/13/24 08:05 Oxygen Delivery Method Room Air Weight: 68.1 kg Body Mass Index (BMI) 21.5 Intake & Output: Intake and Output for Last 24 Hours 06/11/24 06/12/24 06/13/24 23:59 23:59 23:59 Intake Total 1336.24 / 1336.24 469.67 / 469.67 Output Total 1320 / 1320 Balance 16.24 / 16.24 469.67 / 469.67 Lab / Micro Data 06/12/24 03:52 06/12/24 03:50 Labs: Laboratory Results - last 24 hr 06/11/24 10:34: Fluid Glucose 106 H, Fluid Total Protein 3.9, Fluid LDH 174 06/12/24 10:34: Fluid Source THORACENTESIS, Fluid Color YELLOW, Fluid Appearance CLEAR, Fluid WBC 0.669, Fluid RBC 280, Fluid Tot Cell Count 0.715, Fld Polynuclear WBCs # 0.067, Fld Polynuclear WBCs % 10.0, Fluid Mononuclear WBCs 0.602, Fld Mononuclear WBCs % 90.0, Fluid Neutrophils 11, Fluid Lymphocytes 66, Fluid Monocytes 7, Fld Mesothelial Cells 9, Fluid Other Cells 7, Fl Pathologist Comment May follow, Fluid Comment 2 SEE COMMENT 06/12/24 11:00: APTT 51.0 H 06/12/24 21:08: APTT 76.5 H 06/13/24 03:35: APTT 66.8 H Radiography Diagnostic Testing: Radiology Impression Chest X-Ray 06/12/24 10:45 IMPRESSION: Compared to the CT of 06/11/2024, the lung parenchyma is unchanged. A small left pleural effusion appears diminished since the prior examination. No pneumothorax is noted. No new or worsened pneumonic process is seen. The cardiomediastinal silhouette is stable, without evidence of cardiomegaly. Reading Location: [address] Physical Exam Const alert and no apparent distress GI normal to inspection, nondistended, normoactive bowel sounds, soft to palpation, non-tender and non-distended Assessment & Plan Assessment/Plan (1) Pulmonary emboli: PLAN: Likely malignancy-induced. On heparin gtt. Discharge with DOAC. Did discuss with patient and family member about DOACs v warfarin. The need to modify diet with warfarin, INR checks, bridge with enoxaparin. Patient has NO insurance and the cost of a DOAC (after the first month) would be around $500/month. Patient discussed it with his family member and decided on DOAC. So, patient will be discharged with apixaban. (2) Pleural effusion, left: PLAN: Underwent thoracentesis on 06/12. Likely exudative based on the protein. Cytology sent off. PLAN: Plan Prostate cancer. stage IV: started on Casodex. Patient to follow up with Dr. Larose to start hormone deprivation therapy. Dispostion: DC home.
[2024-06-13 10:37] VITALS: O2SAT 90; O2SAT 92
[2024-06-13 10:58] LABS: Partial Thromboplast Time 54.6 Seconds (24.1-36.2)
--- NOTE | 2024-06-13 12:51 | PCM.DC.SUM ---
Providers Date of Admission: 06/11/24 Primary Care Physician: Quentin Guerra PA-C Consultations 06/11/24 22:52 Consult: Urology Routine Consulting Provider: Herminio Larose Reason for Consult: metastatic prostate cancer EMERGENT Consult: No MD Notified: Yes Date Notified: 06/11/24 Time Notified: 21:37 Method of Notification: ED Physician Initiated Reason For Visit: L PLUERAL EFFUSION/B SUBSEGMENTAL PE Diagnosis Discharge Diagnosis (1) Pulmonary emboli: Status: Acute Code(s): I26.99 - Other pulmonary embolism without acute cor pulmonale Plan: Likely malignancy-induced. On heparin gtt. Discharge with DOAC. Did discuss with patient and family member about DOACs v warfarin. The need to modify diet with warfarin, INR checks, bridge with enoxaparin. Patient has NO insurance and the cost of a DOAC (after the first month) would be around $500/month. Patient discussed it with his family member and decided on DOAC. So, patient will be discharged with apixaban. (2) Pleural effusion, left: Status: Acute Code(s): J90 - Pleural effusion, not elsewhere classified Plan: Underwent thoracentesis on 06/12. Likely exudative based on the protein. Cytology sent off. Plan Prostate cancer. stage IV: started on Casodex. Patient to follow up with Dr. Larose to start hormone deprivation therapy. Dispostion: DC home. Medications at Discharge Home Medications losartan 50 mg tablet 50 mg PO DAILY 06/11/24 acetaminophen 500 mg tablet 1,000 mg (2 x 500 mg) PO Q8 PRN Pain #0 tabs 06/13/24 apixaban 5 mg tablet 5 mg PO BID #90 tabs 06/13/24 bicalutamide 50 mg tablet 150 mg (3 x 50 mg) PO DAILY #30 tabs 06/13/24 Hospital Course Operations None Procedures 2-D Echocardiogram and Thoracentesis Summary of Care Provided Minutes Spent on Discharge: 32 Weight / BMI Weight Weight: 68.1 kg Body Mass Index (BMI) 21.5 ABG / Lab / Microbiology Data 06/12/24 03:52 06/12/24 03:50 Laboratory: Laboratory Results - last 24 hr 06/11/24 10:34: Fluid Glucose 106 H, Fluid Total Protein 3.9, Fluid LDH 174 06/12/24 10:34: Fluid Source THORACENTESIS, Fluid Color YELLOW, Fluid Appearance CLEAR, Fluid WBC 0.669, Fluid RBC 280, Fluid Tot Cell Count 0.715, Fld Polynuclear WBCs # 0.067, Fld Polynuclear WBCs % 10.0, Fluid Mononuclear WBCs 0.602, Fld Mononuclear WBCs % 90.0, Fluid Neutrophils 11, Fluid Lymphocytes 66, Fluid Monocytes 7, Fld Mesothelial Cells 9, Fluid Other Cells 7, Fl Pathologist Comment May follow, Fluid Comment 2 SEE COMMENT 06/12/24 11:00: APTT 51.0 H 06/12/24 21:08: APTT 76.5 H 06/13/24 03:35: APTT 66.8 H 06/13/24 10:07: APTT 54.6 H Microbiology: Microbiology 06/12/24 10:45 Fluid - Pleural (Lung) Body Fluid Culture - Preliminary No growth-Final to follow D/C Instructions Discharge Diet: No restrictions DC O2, CPAP, BIPAP Needs RN Home O2 Qualification: Home O2 Qualification: Is the patient on home oxygen No 06/13/24 10:37 Home O2 Qualification: AT REST 1- Pulse Ox at rest 92 06/13/24 10:37 Home O2 Qualification: WITH AMBULATION 1- Pulse Ox with ambulation 90 06/13/24 10:37 1- Oxygen Flow Rate with 0 06/13/24 10:37 ambulation Home O2 Discharge instructions: No Meaningful Use Info Meaningful Use Meaningful Use Diagnoses (Choose all that apply): None applicable Ischemic Stroke Statin Dosing Therapy Reference: STATIN DOSE THERAPY REFERENCE: * Patients > 75 years receive moderate or high dose statin therapy. * Patients 75 years or YOUNGER should receive HIGH intensity statin dose unless contraindicated. You will be required to document reason for non-treatment if statin daily dose does not meet guidelines. HIGH DOSE STATIN THERAPY DAILY Atorvastatin > than or = to 40 mg Rosuvastatin > than or = to 20 mg Amlodipine + Atorvastatin > than or = to 2.5/40 mg Ezetimibe + Simvastatin 10/80 mg Simvastatin 80mg Discharge Plan Admission Admit Date/Time: 06/11/24 21:12 Primary Reason for Your Visit: Pulmonary emboli, pleural effusion Attending Provider: Mukesh Red Primary Care Provider: Quentin Guerra Consulting Providers: Herminio Larose; Sonia Garza Instructions Patient Instructions: RAD RN Thoracentesis Dc Additional Instructions / Restrictions: You had blood clots in your lungs. The treatment for these is blood thinners. As we discussed, you will be discharged with one that does not require monitor, in your case, apixaban (Eliquis). Dr. Larose started you on biclutamide (Casodex) for your prostate cancer. Please follow up with him about starting hormone deprivation therapy. Discharge Orders/Prescriptions Prescriptions: New bicalutamide 50 mg Tablet 150 mg PO DAILY Qty: 30 0RF acetaminophen 500 mg Tablet 1,000 mg PO Q8 PRN (Reason: Pain) Qty: 0 0RF apixaban 5 mg tablet 5 mg PO BID Qty: 90 0RF Rx Instructions: 2 tablets twice daily for 7 days, then 1 tablet twice daily thereafter. Continued losartan 50 mg tablet 50 mg PO DAILY Discontinued clindamycin HCl 300 mg capsule 300 mg PO Q6H Patient Comments: 10day prescription, has been on it for 8 days total Referrals / Follow Up: Quentin Guerra PA-C [Primary Care Provider] - Within 2 Weeks Herminio Larose MD [Med Staff - Active Staff] - Within 2 Weeks Disposition Disposition (needs filled in before D/C Order can be placed): Home, Self Care Charges/Coding Visit Charges Inpatient E&M: 78499 Disch Hosp >30min
--- NOTE | 2024-06-13 13:58 | CASEMGMT ---
Patient has order for discharge. Patient is discharge on Eliquis, patient does not have insurance, and [facility] retail requested to apply 30day free trial. RN CM in to discuss discharge needs with patient. RN CM encouraged patient to follow-up with doctor to discuss further anticoagulation options, patient voiced understanding. Patient denied further needs or help at discharge. Patient had no further questions or concerns.
[2024-06-13 14:28] VITALS: BP 146/86; PULSE 83; RESP 14; TEMP 37.5; O2SAT 92
[2024-06-14 15:08] LABS: Pathologist Comment/Body Fluid Reviewed
== END 2024-06-13 14:45 | disposition home or self-care (01) | DRG 176 ==
LOC: ED 19:21 → PCU 21:51
PROVIDERS: Admitting Provider Internal Medicine; Emergency Provider Emergency Medicine; PCP Physician Assistant
DX: I26.99 Other pulmonary embolism without acute cor pulmonale (principal); C78.02 Secondary malignant neoplasm of left lung; C79.51 Secondary malignant neoplasm of bone; J91.0 Malignant pleural effusion; I10 Essential (primary) hypertension; I35.0 Nonrheumatic aortic (valve) stenosis; C61 Malignant neoplasm of prostate; J34.0 Abscess, furuncle and carbuncle of nose; Z66 Do not resuscitate; Z91.199 Patient's noncompliance with other medical treatment and regimen due to unspecified reason; Z79.899 Other long term (current) drug therapy
CPT/HCPCS: 32555; 36415; 71046; 71275; 74177; 80048; 80053; 81002; 82945; 83615; 83735; 84100; 84157; 85025; 85610; 85730; 87070; 87075; 87205; 88108; 88305; 88313; 88341; 88342; 89050; 97161; 97802; 99252; 99284; Q9967; A4216; G0463

== ENCOUNTER 2024-06-28 20:37 | Inpatient (IN) | payer OTHER, SELFPAY ==
[2024-06-28 20:38] VITALS: BP 168/91; PULSE 98; RESP 16; TEMP 36.9; O2SAT 98; BMI 22.8
--- NOTE | 2024-06-28 21:03 | EDS_ITS ---
HPI History of Present Illness Chief Complaint: Weakness Informant: patient Onset/Context/Timing Onset: Weeks (2) Context: Gradual Onset Timing: Continuous Quality: Weakness Location: Lower extremities Worsened by: Nothing Relieved by: Nothing Narrative Narrative: Patient presents with generalized weakness that became worse today. Patient states his weakness is mainly in his legs. Patient states he has difficulty ambulating due to the weakness. Patient states he was admitted to the hospital 2 weeks ago and had fluid drained from his lung. Patient states that he felt better after that and was discharged home. Patient states that since he was discharged, he has been gradually getting worse. Patient states he feels lightheaded at times. Patient states he has had a cough with some blood- streaked sputum. Patient is on Eliquis for a pulmonary embolism that was diagnosed while he was in the hospital. Patient denies any fevers or chills. Patient also admits to some redness and swelling of his nares and upper lip. Patient denies any discharge or drainage. Patient is concerned that this could be a staph infection. [facility] Medical History Pulmonary emboli Hypertension Prostate cancer Home Medications ?Medication ?Instructions ?Recorded ?Last Taken ?Type losartan 50 mg tablet 50 mg PO DAILY blood pressur e 06/11/24 Unknown History acetaminophen 500 mg tablet 1,000 mg (2 x 500 mg) PO Q 8 PRN 06/13/24 Unknown Rx Pain #0 tabs apixaban 5 mg tablet 5 mg PO BID #90 tabs 5 Unknown Rx bicalutamide 50 mg tablet 150 mg (3 x 50 mg) PO DAILY #30 06/13/24 Unknown Rx tabs Allergy/AdvReac Type Severity Reaction Status Date / Time No Known Allergies Allergy Verified 06/28/24 20:38 Surgical History H/O inguinal hernia repair History of tonsillectomy and adenoidectomy Social History household members: family housing: house Smoking Status: Never smoker alcohol intake: never substance use type: does not use ROS ROS ED Constitutional Constitutional ED: Denies chills or fever(s) Eyes Eyes: Denies blurry vision or change in vision ENT ENT ED: Denies rhinorrhea or sore throat Cardiovascular Cardiovascular: Denies chest pain or palpitations Respiratory/Chest Respiratory/Chest: Reports cough, dyspnea and dyspnea on exertion Gastrointestinal Gastrointestinal: Denies nausea or vomiting Genitourinary Genitourinary ED: Denies dysuria or hematuria Musculoskeletal Musculoskeletal: Reports neck pain; Denies back pain Integumentary Reports rash; Denies abscess Neurologic Neurologic: Reports weakness; Denies headache(s) Allergic/Immunologic Allergic/Immunologic ED: Denies mouth swelling or urticaria EXAM Physical Exam Const Vital Signs: 06/28/24 20:38 06/28/24 20:43 06/28/24 21:15 Temperature 98.5 F Temperature Source Oral Pulse Rate 98 77 Respiratory Rate 16 19 H Respiratory Effort Normal Respiratory Pattern Normal Blood Pressure 168/91 H 153/92 H Blood Pressure Mean 116 112 Pulse Ox 98 92 Oxygen Delivery Method Room Air Room Air 06/28/24 22:36 Temperature Temperature Source Pulse Rate 80 Respiratory Rate Respiratory Effort Respiratory Pattern Blood Pressure 153/91 H Blood Pressure Mean Pulse Ox Oxygen Delivery Method Positive well nourished and well developed General Appearance ED: well developed and NAD HEENT Reports moist mucous membranes Neck supple and no JVD Resp normal respiratory effort Auscultation: diminished lung sounds left lower Cardio regular rate and regular rhythm GI non-tender and non-distended Palpation: soft Extremity normal to inspection General Extremety ED: Negative for edema or tenderness General Extremity: Negative for edema Neuro oriented x3, CN's II-XII intact bilaterally and no sensory deficits noted Sensorium / Orientation: alert Motor Exam: general weakness Psych mental status grossly normal Skin Skin Narrative: There is edema and mild erythema over the opening of the nares, worse on the left. There is some mild erythema of the upper lip. There is no fluctuance. There is no discharge or drainage noted. MDM MDM MDM Narrative Medical decision making narrative: Differential diagnosis includes pneumonia, pleural effusion, cardiac dysrhythmia, cardiac ischemia, sepsis, electrolyte abnormality, congestive heart failure, and urinary tract infection. EKG will be obtained to assess for cardiac dysrhythmia and cardiac ischemia. Chest x-ray will be obtained to assess for pneumonia, pleural effusion, and congestive heart failure. CBC will be obtained to assess for leukocytosis and anemia. Basic metabolic profile will be obtained to assess for electrolyte abnormality and renal function. BNP will be obtained to assess for congestive heart failure. High-sensitivity troponin will be obtained to assess for cardiac ischemia. PT with INR and PTT will be obtained to assess for coagulopathy. Serum lactate will be obtained to assess for sepsis. 2-hour repeat high-sensitivity troponin will be obtained to assess for ongoing cardiac ischemia. Urinalysis will be obtained to assess for urinary tract infection and hematuria. MRSA nasal swab will be obtained to assess for MRSA infection. Lab Data Attestation: I reviewed the patient's lab results. Lab results narrative: CBC was reviewed. There is a slight anemia with a hemoglobin of 12.0 and hematocrit 35.8. Basic metabolic profile was reviewed. BUN slightly elevated 29. Glucose was slightly elevated at 125. The remainder is within normal limits. PT with INR and PTT were reviewed. Pro time was 17.5 and INR is 1.4. PTT was normal at 25.4. Urinalysis was reviewed. There is no evidence of urinary tract infection or hematuria. High-sensitivity troponin was reviewed and was elevated at 368. BNP was reviewed and was 1059. Labs: Laboratory Results - last 24 hr 06/28/24 06/28/24 21:25 21:38 WBC 9.7 RBC 4.10 L Hgb 12.0 L Hct 35.8 L MCV 87.3 MCH 29.3 MCHC 33.5 RDW Std Deviation 40.5 RDW Coeff of Clarissa 12.7 Plt Count 183 MPV 9.0 Immature Gran % (Auto) 1.900 H Neut % (Auto) 68.3 Lymph % (Auto) 13.1 L [place] % (Auto) 10.5 H Eos % (Auto) 5.3 H Baso % (Auto) 0.9 Absolute Neuts (auto) 6.6 Absolute Lymphs (auto) 1.27 Nucleated RBC % 0 PT 17.5 H INR 1.4 APTT 25.4 Sodium 134 Potassium 4.3 Chloride Direct 101 Carbon Dioxide 22.9 Anion Gap 10 BUN 29 H Creatinine 1.12 Estim Creat Clear Calc 50.12 Est GFR (MDRD) Non-Af 65 BUN/Creatinine Ratio 26.3 H Glucose 125 H Lactic Acid 1.3 Calcium 9.0 Troponin T High Sens 368 H* NT pro BNP II 1059 Urine Color Yellow Urine Clarity Sl. Cloudy Urine pH 6.0 Ur Specific [place] 1.015 Urine Protein 15 H Urine Glucose (UA) Normal Urine Ketones Negative Urine Occult Blood 10 H Urine Nitrite Negative Urine Bilirubin Negative Urine Urobilinogen Normal Ur Leukocyte Esterase Negative Urine RBC 0-5 SEEN Urine WBC 0 SEEN Ur Squamous Epith Cells 0-5 SEEN Urine Bacteria 0 SEEN Urine Mucus 0 SEEN Radiography Chest X-Ray - ED: 2 View, Read by ED Physician, Read by Radiologist, Right Infiltrate, Left Infiltrate, Right Effusion and Left Effusion Diagnostic Testing: Clinical Impression(s) from Imaging Studies Chest X-Ray 06/28/24 21:40 IMPRESSION: 1. Bilateral pneumonia. 2. Moderate left and mild right pleural effusions. [facility] lateral chest x-ray was obtained. There are 2 views. On my independent interpretation, there are bilateral infiltrates, worse on the left. There is a moderate left pleural effusion and mild right pleural effusion. There are chronic changes noted. Bony thorax is normal. Radiologist also interpreted the x-rays and agrees. EKG Initial EKG: Attestation: I personally reviewed and interpreted this EKG as follows: Interpretation: Sinus Rhythm (80) and Non-Specific ST Changes Comments: EKG was obtained. On my independent interpretation, it showed a normal sinus rhythm with a rate of 80. CA interval, QRS interval, and QTc intervals were all normal. There is borderline left axis deviation at -22. There are nonspecific ST-T wave changes. Prior EKG tracings: not available for review Prior: No Prior Management Discussion w/another healthcare provider: Hospitalist Additional Tests and Interventions Additional Tests or Interventions: Blood culture was obtained. Treatment and Re-Evaluation :: Patient was given aspirin. Patient was started on Rocephin and Zithromax. Patient was also placed on nitroglycerin paste. Patient and family were advised of the need for admission. They are agreeable with this. Case was discussed with the hospitalist. He will admit the patient to his service. He requested a CTA of the chest to be obtained to assess for metastatic disease as a cause for the pneumonia. This was ordered. Patient and family are agreeable with the plan. All questions were answered. Discharge Plan Dx/Rx/DC Orders Clinical Impression: Pneumonia, Pleural effusion, left, Elevated troponin, Prostate cancer Disposition Disposition: Acute Care [facility]
--- NOTE | 2024-06-28 21:03 | EKG12_ITS ---
Test Reason : DYSRHYTHMIA Blood Pressure : */* mmHG Vent. Rate : 80 BPM Atrial Rate : 80 BPM P-R Int : 166 ms QRS Dur : 72 ms QT Int : 340 ms P-R-T Axes : 29 -22 16 degrees QTcB Int : 392 ms Normal sinus rhythm Cannot rule out Septal infarct , age undetermined Abnormal ECG Confirmed by Cal Pruett ([id number]), commissioning editor DULCE MARIA CLAYTON ([id number]) on 07/01/2024 10:52:52 AM Referred By: Rio Cardona Confirmed By: Cal Pruett
[2024-06-28 21:15] VITALS: BP 153/92; PULSE 77; RESP 19; O2SAT 92
--- NOTE | 2024-06-28 21:40 | RAD_ITS ---
PROCEDURE: CHEST PA AND LATERAL REASON FOR EXAM: Weakness TECHNIQUE: Frontal and lateral views of the chest. COMPARISON: 06/12/2024 FINDINGS: The heart size is normal. The mediastinal contour is unremarkable. Diffuse airspace disease bilaterally with consolidation in the lingula. Moderate left and mild right pleural effusion Degenerative changes are identified within the thoracic spine. RAD/Chest PA and Lateral IMPRESSION: 1. Bilateral pneumonia. 2. Moderate left and mild right pleural effusions. Reading Location: [facility]
[2024-06-28 21:42] LABS: Bacteria 0 SEEN /hpf (None Seen); Mucous, Urine 0 SEEN /hpf (<or=2+); White Blood Cells 0 SEEN /hpf (0-5)
[2024-06-28 21:45] LABS: Absolute Lymphocyte Count 1.27 X10^3/uL (0.83-4.51); Absolute Neutrophil Count 6.6 X10^3/uL (2.0-7.7); Basophil# 0.09 X10^3/uL; Basophil% 0.9 % (0-1); Eosinophil# 0.51 X10^3/uL; Eosinophils% 5.3 % (0-5); Hematocrit 35.8 % (40-54); Lymphocyte # 1.27 X10^3/ul (0.83-4.51); Lymphocyte % 13.1 % (19-41); Mean Corp Hgb Conc 33.5 g/dL (32-36); Mean Corpuscular Hgb 29.3 pg (27.0-32.0); Mean Corpuscular Volume 87.3 fL (80-94); Monocyte# 1.02 X10^3/uL; Monocyte% 10.5 % (0-10); NRBC Flagged by Analyzer 0 % (0-5); Neutrophil % 68.3 % (47-70); Platelet Count 183 K/mm3 (150-450); RBC Distribution Width CV 12.7 % (11.6-14.6); RBC Distribution Width SD 40.5 fl (35.1-43.9); White Blood Count 9.7 K/mm3 (4.4-11.0)
[2024-06-28 21:49] LABS: Color, Urine Yellow (Yellow); Glucose, Dipstick Normal (Normal); Ketone-Dipstick Negative (Negative); Leukocyte Esterase-Dipstick Negative /ul (Negative); Nitrite-Dipstick Negative (Negative); Occult Blood-Urine 10 /ul (Negative); Protein-Dipstick 15 mg/dl (Negative); Specific Gravity, Urine 1.015 (1.002-1.030); Urine Bilirubin Dipstick Negative (Negative); Urine Clarity Sl. Cloudy (Clear); Urine Urobilinogen Normal (Normal)
[2024-06-28 21:51] LABS: International Normalized Ratio 1.4; Prothrombin Time (Protime)PT. 17.5 SECONDS (11.7-14.9)
[2024-06-28 21:52] LABS: Partial Thromboplast Time 25.4 Seconds (24.1-36.2)
[2024-06-28 22:03] LABS: Anion Gap 10 (5-15); BUN 29 mg/dL (4-19); BUN/Creat Ratio 26.3 RATIO (10-20); Carbon Dioxide 22.9 mmol/L (22.0-29.0); Chloride 101 mmol/L (96-108); Creatinine, Serum 1.12 mg/dL (0.70-1.20); EST Glomerular Filtration Rate 65 (>60); Estimated Creatinine Clearance 50.12 ml/min; Glucose 125 mg/dL (70-99); Potassium 4.3 mmol/L (3.3-5.1); Sodium Level 134 mmol/L (133-145)
[2024-06-28 22:06] LABS: Red Blood Cells-Urine 0-5 SEEN /hpf (0-5); Squamous Epithelial Cells - UA 0-5 SEEN /hpf (0-5)
[2024-06-28 22:18] LABS: Pro- Brain NATRIURETIC PEPTIDE 1059 pg/mL (<=1800); Troponin T High Sensitivity 368 ng/L (<=22)
[2024-06-28] MEDS: Aspirin 81 MG TAB.CHEW 324 MG PO (22:31)
[2024-06-28] MEDS: Ceftriaxone 2 GM in 0.9% Normal Saline (50mL MB+) 50 ML IV (22:34)
[2024-06-28 22:36] VITALS: BP 153/91; PULSE 80
[2024-06-28 22:36] LABS: Lactic Acid 1.3 mmol/L (0.0-2.0)
[2024-06-28] MEDS: Nitroglycerin Oint 1 INCH PACKET TD (22:36)
--- NOTE | 2024-06-28 22:39 | HP.PCM.HOS_ITS ---
[facility] - General General Date of Admission: 06/28/24 Date of Service: 06/28/24 Chief Complaint: Generalized Weakness and Cough with Blood-streaked Sputum. HPI Narrative DESHAUN TAN, is a 83 M with a past medical history of essential hypertension; on losartan, recent history of paranasal sinusitis; treated with oral clindamycin, history of inguinal hernia; s/p repair, DNR-CCA CODE STATUS; with no intubation and recent admission here from June 11, 2024 to June 13, 2024 for complaints of shortness of breath with a known history of prostate cancer and intermittent cough with CTA of the chest with IV contrast that admission showing bilateral subsegmental Pulmonary Emboli without evidence of RV strain, diffuse and miliary pulmonary opacities with lytic thoracic vertebral body lesions concerning for pulmonary and osseous Metastatic Disease with trace Right and moderate Left pleural effusions and near complete consolidation of the Left lower lobe and prominent mediastinal lymphadenopathy in the setting of a previous PSA of 32.6 on May 30, 2024 with the patient subsequently undergoing Left thoracentesis on June 12, 2024 with elevated protein levels suspicious for Malignant Pleural Effusion with patient then being discharged on apixaban 5 mg twice daily; for treatment of paraneoplastic PE, plus bicalutamide; for treatment of prostate cancer, with plan for patient to follow- up with urology to start hormone deprivation therapy who now re-presents to [facility] ER complaining of generalized weakness and cough with blood-streaked sputum. Mr. Archuleta reports his symptoms began ~2 weeks prior to admission but abruptly became worse earlier today. Initially he noted generalized weakness weakness most severe in his legs with patient stating he was having difficulty ambulating due to to his progressively worsening weakness. He does admit to transient improvement in his breathing after his thoracentesis but since that time he has become progressively more short of breath. He also admits to intermittent lightheadedness and cough with blood-streaked sputum but he denies associated fever, chills, nausea, vomiting, diarrhea, chest pain, palpitations, heart racing or rash but he does admit to continued redness and swelling of his nares and upper lip with patient concerned this could be a staph infection. 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 He was then admitted to the PCU for ongoing care for a stay that is expected to extend beyond 2 midnights. [facility] Medical History (Updated 06/28/24 @ 23:[address] Rio Cardona DO) Pulmonary emboli Hypertension Prostate cancer Home Medications ?Medication ?Instructions ?Recorded ?Last Taken ?Type losartan 50 mg tablet 50 mg PO DAILY blood pressur e 06/11/24 06/28/24 08:00 History 50 mg acetaminophen 500 mg tablet 1,000 mg (2 x 500 mg) PO Q 8 PRN 06/13/24 06/28/24 08:00 Rx Pain #0 tabs 500 mg apixaban 5 mg tablet 5 mg PO BID blood thin #90 t abs 06/13/24 06/28/24 18:00 Rx 5 mg bicalutamide 50 mg tablet 150 mg (3 x 50 mg) PO DAILY cancer 06/13/24 06/28/24 18:00 Rx #30 tabs 50 mg Allergy/AdvReac Type Severity Reaction Status Date / Time No Known Allergies Allergy Verified 06/28/24 20:38 Surgical History H/O inguinal hernia repair History of tonsillectomy and adenoidectomy Social History household members: family housing: house Smoking Status: Never smoker alcohol intake: never substance use type: does not use ROS ROS Narrative Review of Systems: Constitutional: Patient denies fever or chills. Eyes: Patient denies changes in vision or discharge from eyes. ENT: Patient admits to redness and swelling around his nasal turbinates but he denies runny nose, sore throat or ear pain. Resp: Patient admits to shortness of breath and cough made worse with exertion. CV: Patient denies chest pain, palpitations, heart racing or lower extremity edema. GI: Patient denies abdominal pain, nausea, vomiting, diarrhea or constipation. : Patient denies dysuria or hematuria. MSK: Patient admits to leg weakness causing difficulty with ambulation and neck pain but he denies back pain. Skin: Patient denies rash, abscess, wounds or jaundice. Psych: Patient denies symptoms of uncontrolled depression or anxiety. Neuro: Patient denies headache, paresthesias or lateralizing focal neurologic deficits. Allergy: Patient denies lip swelling, tongue swelling or urticaria. Hematology: Patient admits to blood-streaked sputum after recently being started on apixaban for treatment of Paraneoplastic PE as per HPI. Endocrinology: Patient denies polyuria, polydipsia or polyphagia. 14 point ROS otherwise negative except for positives noted above in HPI. Vital Signs Vital Signs Vital Signs: 06/28/24 20:38 06/28/24 20:43 06/28/24 21:15 Temperature 98.5 F Temperature Source Oral Pulse Rate 98 77 Respiratory Rate 16 19 H Respiratory Effort Normal Respiratory Pattern Normal Blood Pressure 168/91 H 153/92 H Blood Pressure Mean 116 112 Pulse Ox 98 92 Oxygen Delivery Method Room Air Room Air Weight Weight: 159 lb 1.6 oz Body Mass Index (BMI) 22.8 Physical Exam Const alert, oriented x3, no apparent distress and average body habitus Constitutional Narrative: Patient appears chronically ill. General Appearance: cooperative HEENT normocephalic, head/scalp atraumatic, hearing grossly normal bilaterally and moist oral mucous membranes Eyes PERRL, EOMs intact bilaterally and conjunctivae normal Neck no lymphadenopathy, supple and no JVD Resp Resp Narrative: Diminished breath sounds over Left lower lobe with normal respiratory effort. Cardio regular rate and regular rhythm GI normal to inspection, nondistended, normoactive bowel sounds, soft to palpation, non-tender and non-distended Extremity normal to inspection, full ROM and no clubbing, cyanosis or edema Skin Skin Narrative: Patient has mild edema and erythema over the opening of the nares that is more pronounced on the Left than the Right. There is also mild erythema of the upper lip but no fluctuance, discharge or drainage noted. Neuro oriented x3, CN's II-XII intact bilaterally, moves all extremities and no focal motor deficits Sensorium / Orientation: awake, alert, oriented to person, oriented to place and oriented to time Speech: speech normal Psych affect normal Results Medical Records Data Attestation: I reviewed the patient's medical records Lab / Micro Data Attestation: I reviewed the patient's lab results. 06/29/24 05:31 06/28/24 21:25 Labs: Laboratory Results - last 24 hr 06/28/24 21:25: WBC 9.7, RBC 4.10 L, Hgb 12.0 L, Hct 35.8 L, MCV 87.3, MCH 29.3, MCHC 33.5, RDW Std Deviation 40.5, RDW Coeff of Clarissa 12.7, Plt Count 183, MPV 9.0, Immature Gran % (Auto) 1.900 H, Neut % (Auto) 68.3, Lymph % (Auto) 13.1 L, Aurora % (Auto) 10.5 H, Eos % (Auto) 5.3 H, Baso % (Auto) 0.9, Absolute Neuts (auto) 6.6, Absolute Lymphs (auto) 1.27, Nucleated RBC % 0, PT 17.5 H, INR 1.4, APTT 25.4, Sodium 134, Potassium 4.3, Chloride Direct 101, Carbon Dioxide 22.9, Anion Gap 10, BUN 29 H, Creatinine 1.12, Estim Creat Clear Calc 50.12, Est GFR (MDRD) Non-Af 65, BUN/Creatinine Ratio 26.3 H, Glucose 125 H, Lactic Acid 1.3, Calcium 9.0, Troponin T High Sens 368 H*, NT pro BNP II 1059 06/28/24 21:38: Urine Color Yellow, Urine Clarity Sl. Cloudy, Urine pH 6.0, Ur Specific Marshall 1.015, Urine Protein 15 H, Urine Glucose (UA) Normal, Urine Ketones Negative, Urine Occult Blood 10 H, Urine Nitrite Negative, Urine Bilirubin Negative, Urine Urobilinogen Normal, Ur Leukocyte Esterase Negative, Urine RBC 0-5 SEEN, Urine WBC 0 SEEN, Ur Squamous Epith Cells 0-5 SEEN, Urine Bacteria 0 SEEN, Urine Mucus 0 SEEN Imaging Radiology Impression Chest X-Ray 06/28/24 21:40 IMPRESSION: 1. Bilateral pneumonia. 2. Moderate left and mild right pleural effusions. Reading Location: [facility] Imaging Services [address] [place] [address] CTA Chest W/WO Contrast MR#: [id number] Acct: [id number] Name: DESHAUN TAN Rep #: [id number] : 1940 83 From: Kashmir Camilo MD PCP: Quentin Guerra PA-C Status: ADM IN Study: CTA Chest W/WO Contrast Date of Exam: 06/28/24 Exam# [id number] Ordering Dr: Mukesh Escoto DO PROCEDURE: CTA CHEST W/WO CONTRAST REASON FOR EXAM: Hemoptysis TECHNIQUE: CTA imaging of the chest with intravenous contrast. 3D reconstructions. COMPARISON: 06/11/2024. FINDINGS: Hardware: None. Lymph nodes: No mediastinal hilar or axillary lymphadenopathy. Heart: Mild cardiomegaly. Mild pericardial effusion RV/LV Diameter Ratio: N/A Thoracic Aorta: No thoracic aortic aneurysm or dissection. Pulmonary Vessels: No evidence of acute pulmonary emboli through the major subsegmental branches. Most Proximal Level of Embolus (if embolus present): N/A Lungs and Airways: Left lower lobe consolidation. Miliary pulmonary nodules. Pleura: Moderate left pleural effusion. Mild right pleural effusion Upper Abdomen: Visualized portions of the upper abdominal viscera are unremarkable. Bones: Lytic lesions in the thoracic spine largest seen in T2 vertebral body CT/CTA Chest W/WO Contrast IMPRESSION: 1. No CT evidence of acute pulmonary embolism. 2. Bilateral pleural effusions, [id number]-right. 3. Bilateral miliary pulmonary nodules with lytic lesions in the thoracic spine suggestive of metastatic disease 4. Mild cardiomegaly with mild pericardial effusion One or more dose reduction techniques were used (e.g., Automated exposure control, adjustment of the mA and/or kV according to patient size, use of iterative reconstruction technique). Reading Location: [facility] CC: JEFFRY Guerra; Dr. Mukesh Escoto, DO ~ Interventional Physiatrist: Signed Assessment & Plan Assessment/Plan (1) Hospital-acquired pneumonia: (2) Prostate cancer metastatic to lung: (3) Malignant pleural effusion: (4) Elevated troponin: (5) Pulmonary emboli: QUALIFIERS: Pulmonary embolism type: multiple subsegmental (without acute cor pulmonale) Qualified Code(s): I26.94 - Multiple subsegmental thrombotic pulmonary emboli without acute cor pulmonale (6) Generalized weakness: (7) Ambulatory dysfunction: PLAN: Plan 1. Nosocomial Pneumonia; suspected to be postobstructive in the setting of known Metastatic Prostate Cancer with previously documented and reconfirmed DNR- CCA CODE STATUS; with no intubation - Admit to PCU. Start IV piperacillin- tazobactam plus IV vancomycin with suspected Pneumonia after recent hospitalization. Check urinary antigens to Streptococcus pneumonia and Legionella. Give scheduled Mucinex 600 mg PO BID. Give Tessalon perles prn for cough. Give acetaminophen prn for [id number] (level 1-5/10) pain or fever. Give morphine IV prn for severe (level 6-10/10) pain. Finally, repeat CTA of chest with IV contrast was requested on admission to confirm suspicion of postobstructive pneumonia and to reassess pulmonary emboli. 2. 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 We will keep patient NPO, hold anticoagulation and consult IR for thoracentesis to be done as soon as possible, hopefully tomorrow. 3. Recently diagnosed Paraneoplastic PE; with patient already on apixaban with complaints of blood-streaked sputum compounding #1 & #2 - Noted. We will monitor closely and hold apixaban with need for repeat Left thoracentesis. 4. Mildly elevated troponin T of 368 ng/L present on admission due to suspected Acute Cardiac Strain; with patient treated with ECASA and 1 inch of NTG adding to the medical complexity of #1 - #3 - Continue ECASA and NTG begun in ER plus give statin. Serialize troponin. Check echocardiogram to evaluate LVEF. Doubt ACS. 5. Dehydration; evidenced by elevated BUN/creatinine ratio of 26.3 present on admission further complexifying #1 - #4 - Give gentle volume replacement in light of Left pleural effusion. 6. Generalized Weakness with Ambulatory Dysfunction attributable to #1 - #5 - PT/OT and Case Management to consult and treat on-rounds in the AM for further recommendations with help appreciated in advance. 7. Recent admission here from June 11, 2024 to June 13, 2024 for complaints of shortness of breath with a known history of prostate cancer and intermittent cough with CTA of the chest with IV contrast that admission showing bilateral subsegmental pulmonary emboli without evidence of RV strain, diffuse and miliary pulmonary opacities with lytic thoracic vertebral body lesions concerning for pulmonary and osseous metastatic disease with trace right and moderate left pleural effusions and near complete consolidation of the left lower lobe and prominent mediastinal lymphadenopathy in the setting of a previous PSA of 32.6 on May 30, 2024 with the patient subsequently undergoing left thoracentesis on June 12, 2024 with elevated protein levels suspicious for malignant pleural effusion pulmonary and patient being discharged on apixaban 5 mg twice daily; for treatment of paraneoplastic PE, plus bicalutamide; for treatment of prostate cancer, with plan for patient to follow- up with urology to start hormone deprivation therapy adding to the burden of disease outlined from #1 - #6 - Noted. Patient has not apparently yet followed up with urology for initiation of hormone deprivation therapy so consult will be placed this admission given his rapid deterioration with seemingly grim prognosis. 8. Essential Hypertension; on losartan - Resume losartan as previous plus give hydralazine IV as needed for systolic blood pressure greater than 160 mmHg. 9. Recent history of paranasal sinusitis; treated with oral clindamycin - Noted. Patient will be started on IV vancomycin for #1 with MRSA PCR nasal swab. 10. History of inguinal hernia; s/p repair - Noted. 11. DVT/GI prophylaxis - SCD's only with impending thoracentesis. Restart apixaban after thoracentesis. Protonix 40 mg IV daily. Total time: Approximately (but not less than) 75 minutes. Update: Patient had difficulty ambulating with his knee buckling and his toes turning inward but was able to catch his balance on the way to the bathroom. He then was in bed putting on Chapstick when he leaned over to the side and a stroke alert was called at ~6:30 AM. Patient had recently had a bolus of IV contrast for CTA of chest this admission. Therefore, a noncontrast head CT was ordered which was negative for acute pathologic changes. Patient was neurologically intact with no objective evidence of CVA. [facility] teleneurology recommended MRI brain without contrast and CTA of head and neck with IV contrast which have been ordered. CTA of head and neck with IV contrast may be delayed due to his recent contrast bolus. Patient was empirically treated with enteric- coated aspirin and started on lovastatin. Lipid profile, carotid Doppler and echocardiogram are pending at this time. Patient is not a candidate for TNK in any case due to his recent anticoagulation with apixaban and mild hemoptysis as noted above. [facility] updated with events and plan. Charges/Coding Visit Charges Inpatient E&M: 69852 Init Hosp L3
[2024-06-28] MEDS: Azithromycin 500 MG in 0.9% Normal Saline (250mL Bag) 250 ML 255 MG IV (22:50)
[2024-06-28 22:56] VITALS: BP 153/91; PULSE 88; RESP 17; TEMP 36.6; O2SAT 92
[2024-06-28 23:17] VITALS: BP 174/97; PULSE 75; RESP 22; O2SAT 93
--- NOTE | 2024-06-28 23:58 | ECHOD_ITS ---
Reason For Study Reason For Study: OTHER Procedure This was a 2D Doppler, Color Flow transthoracic echocardiogram. Exam performed portable in patient room. Left Ventricle Normal LV size. The estimated ejection fraction is 55 %. No evidence for diastolic dysfunction. No regional wall motion abnormalities noted. Right Ventricle Normal RV size. Normal systolic function. Atria The left and right atria are normal. No doppler evidence for ASD. Mitral Valve There is no mitral valve stenosis. No mitral valve insufficiency. Tricuspid Valve There is no tricuspid stenosis. Trivial tricuspid valve insufficiency. Pulmonary artery systolic pressure is 35 mmHg. Aortic Valve Trisinus/trileaflet aortic valve. Aortic sclerosis, no stenosis. There is no aortic stenosis. No aortic valve insufficiency. Pulmonic Valve There is no pulmonic valvular stenosis. No pulmonic valve insufficiency. Great Vessels Normal sized aortic root. Pericardium/Pleural No pericardial effusion. MMode/2D Measurements & Calculations LVIDd: 4.4 cm IVSd: 1.1 cm LVOT diam: 2.0 cm LVIDs: 3.6 cm LVPWd: 1.4 cm LVOT area: 3.0 cm2 RVDd: 3.2 cm FS: 18.5 % Ao root diam: 3.2 cm LVAd ap4: 29.5 cm2 SV(MOD-sp4): 43.2 ml LVLd ap4: 9.0 cm SI(MOD-sp4): 23.0 ml/m2 EDV(MOD-sp4): 81.1 ml EDV(sp4-el): 82.4 ml LVAs ap4: 18.3 cm2 LVLs ap4: 7.9 cm ESV(MOD-sp4): 37.8 ml ESV(sp4-el): 36.0 ml EF(MOD-sp4): 53.3 % EF(sp4-el): 56.3 % SV(sp4-el): 46.4 ml Time Measurements MV dec time: 0.14 sec Doppler Measurements & Calculations MV E max bob: 58.5 cm/sec Lat Peak E' Bob: 6.0 cm/sec Med Peak E' Bob: 6.6 cm/sec MV A max bob: 108.7 cm/sec E/E' lat: 9.7 E/E' med: 8.9 MV E/A: 0.54 MV V2 max: 119.8 cm/sec MV dec slope: 428.8 cm/sec2 Ao V2 max: 185.9 cm/sec MV max P.7 mmHg Ao max P.8 mmHg MV V2 mean: 73.4 cm/sec Ao V2 mean: 131.8 cm/sec MV mean P.4 mmHg Ao mean P.9 mmHg MV V2 VTI: 28.6 cm Ao V2 VTI: 34.0 cm MVA(VTI): 2.0 cm2 AV (velocity ratio): 0.55 ROSALES(I,D): 1.7 cm2 ROSALES(V,D): 1.6 cm2 LV V1 max: 97.4 cm/sec SV(LVOT): 56.7 ml PA V2 max: 120.5 cm/sec LV V1 max P.8 mmHg PA V2 mean: 75.3 cm/sec LV V1 mean P.8 mmHg LV V1 mean: 62.4 cm/sec LV V1 VTI: 18.7 cm TR max bob: 265.2 cm/sec TR max P.1 mmHg ECHO/Echo Complete Interpretation Summary The estimated ejection fraction is 55 %. No evidence for diastolic dysfunction. Ordering Physician: Rio Cardona Referring Physician: Rio Cardona Performed By: Peggy Quach RCS
[2024-06-29] VITALS (10 sets, daily range): BP systolic 128–182; BP diastolic 83–90; PULSE 79–91; RESP 17–18; TEMP 36.7–37.1; O2SAT 85–96; BMI 22.4
[2024-06-29 00:16] LABS: TROPONIN VARIANCE 2 HR 1; Troponin T High Sens 2 HR 367 ng/L (<=22)
[2024-06-29] MEDS: Vancomycin HCl 1,750 MG in 0.9% Normal Saline (500mL Bag) 500 ML 250 MG IV (01:00)
--- NOTE | 2024-06-29 01:21 | PCM.RX.CS ---
Consult Antibiotic Management Pharmacy has been consulted to manage selected antibiotic: Vancomycin Type of Intervention Type of Consult: New start Suspected Infection Suspected Infection: Pneumonia Labs Labs: Sodium 134 mmol/L (133-145) 06/28/24 21:25 Potassium 4.3 mmol/L (3.3-5.1) 06/28/24 21:25 Carbon Dioxide 22.9 mmol/L (22.0-29.0) 06/28/24 21:25 Anion Gap 10 (5-15) 06/28/24 21:25 BUN 29 mg/dL (4-19) H 06/28/24 21:25 Creatinine 1.12 mg/dL (0.70-1.20) 06/28/24 21:25 Est GFR (MDRD) Non-Af 65 (>60) 06/28/24 21:25 BUN/Creatinine Ratio 26.3 RATIO (10-20) H 06/28/24 21:25 Glucose 125 mg/dL (70-99) H 06/28/24 21:25 Microbiology Microbiology: Microbiology 06/28/24 21:30 Nasal Secretion MRSA (PCR) - Final Dosing Weight Weight used for dosin kg Estimated Creatinine Clearance Estimated Creatinine Clearance: 50 Goal Trough Goal Trough: 15-20 mcg/mL Pharmacy Plan for Drug Dosing Pharmacy Plan for Drug Dosing: Pharmacy Service will continue to monitor and adjust dosing as required. Follow-Up Labs Follow-Up Labs: Trough: Vancomycin Date/Time Labs Ordered Labs to be done on [date and time ordered]: 06/30/24 @4692
[2024-06-29 02:09] LABS: Cholesterol 209 mg/dL (<=200); High Density Lipoprotein 68 mg/dL; Low Density Lipoprotein Calc. 127 mg/dL; Magnesium 2.2 mg/dL (1.5-2.2); Triglycerides 70 mg/dL; Very Low Density Lipoprotein 14 mg/dL (5-40); Vitamin B12 374 pg/mL (180-914); cholesterol:hdl ratio screen 3.08
[2024-06-29] MEDS: Piperacil/Tazobactam 3.375 GM in 0.9% Normal Saline (50mL MB+) 50 ML IV ×3 (03:49→21:42)
[2024-06-29] MEDS: 0.9% Normal Saline (1000mL) 1,000 ML 70 ML IV (03:50)
[2024-06-29 04:02] LABS: TROPONIN VARIANCE 4 HR 23; Troponin T High Sens 4 HR 391 ng/L (<=22)
[2024-06-29 06:24] LABS: Absolute Lymphocyte Count 0.32 X10^3/uL (0.83-4.51); Absolute Neutrophil Count 9.5 X10^3/uL (2.0-7.7); Basophil# 0.08 X10^3/uL; Basophil% 0.7 % (0-1); Eosinophils% 3.7 % (0-5); Hematocrit 34.3 % (40-54); Hemoglobin 11.5 g/dL (13.0-16.5); Lymphocyte # 0.32 X10^3/ul (0.83-4.51); Lymphocyte % 2.9 % (19-41); Mean Corp Hgb Conc 33.5 g/dL (32-36); Mean Corpuscular Hgb 29.2 pg (27.0-32.0); Mean Corpuscular Volume 87.1 fL (80-94); Mean Platelet Vol. 9.6 fl (6.2-12.0); Monocyte% 4.6 % (0-10); NRBC Flagged by Analyzer 0 % (0-5); Neutrophil # 9.51 X10^3/uL (2.7-7.7); Neutrophil % 86.9 % (47-70); POSITIVE DIFFERENTIAL YES; Platelet Count 168 K/mm3 (150-450); RBC Distribution Width CV 12.7 % (11.6-14.6); RBC Distribution Width SD 40.6 fl (35.1-43.9); Red Blood Count 3.94 M/mm3 (4.6-6.2); White Blood Count 10.9 K/mm3 (4.4-11.0)
--- NOTE | 2024-06-29 06:27 | CDU_ITS ---
Reason For Study Reason For Study: Hypoxia / Dizziness Rt. Velocities/BP Lt. Velocities/BP Prox CCA 124.8/19.2 cm/sec. Prox CCA 138.1/17.5 cm/sec. Mid CCA 91.6/16.7 cm/sec. Mid CCA 73.2/6.9 cm/sec. Dist CCA 80.9/10.6 cm/sec. Dist CCA 107.6/14.2 cm/sec. Prox ICA 85.6/22.3 cm/sec. Prox ICA 78.1/15.5 cm/sec. Mid ICA 84.7/23.6 cm/sec. Mid ICA 52.0/15.2 cm/sec. Dist ICA 61.0/19.8 cm/sec. Dist ICA 49.0/18.8 cm/sec. Rt. ICA/CCA = 0.9. Lt. ICA/CCA = 1.1. Prox ECA 68.5/5.4 cm/sec. Prox ECA 113.6/5.3 cm/sec. Rt. Vert. 45.3/10.4 cm/sec. Lt. Vert. 56.3/20.4 cm/sec. Right Extracranial There is homogeneous, smooth atherosclerotic plaque noted in the right common carotid artery. There is heterogeneous, irregular atherosclerotic plaque noted in the right internal carotid artery. There is heterogeneous, irregular atherosclerotic plaque noted in the right external carotid artery. Antegrade flow is noted in the right vertebral artery. Left Extracranial There is homogeneous, smooth atherosclerotic plaque noted in the left common carotid artery. There is heterogeneous, irregular atherosclerotic plaque noted in the left internal carotid artery. There is intimal thickening but no significant atherosclerotic plaque noted in the left external carotid artery. Antegrade flow is noted in the left vertebral artery. Procedure Carotid Duplex [id number]. This is a Carotid Duplex examination using B-mode, color flow and specral Doppler. The exam was diagnostic. Exam performed portable in patient room. VL/Carotid Duplex Ultrasound Interpretation Summary Mild (<50%) stenosis right extracranial internal carotid. Mild (<50%) stenosis left extracranial internal carotid. Flow within the vertebral arteries is antegrade bilaterally. Ordering Physician: Rio Cardona Referring Physician: Quentin Guerra Performed By: Nicolás Gaviria RVT
--- NOTE | 2024-06-29 06:40 | CT_ITS ---
PROCEDURE: STROKE BRAIN/HEAD WITHOUT CONT REASON FOR EXAM: New onset weakness TECHNIQUE: Noncontrast head CT with coronal and sagittal reformatted images COMPARISON: None. FINDINGS: No intracranial hemorrhage, mass effect or CT evidence of large vascular territory acute infarct. The mary-white differentiation appears preserved. The ventricles are within limits and midline. Age commensurate appearing chronic and involutional changes. The visualized paranasal sinuses, mastoids and orbits appear within limits. CT/STROKE Brain/Head without Cont IMPRESSION: No intracranial hemorrhage, mass effect or CT evidence of large vascular territ ory acute infarct. One or more dose reduction techniques were used (e.g., Automated exposure contr ol, adjustment of the mA and/or kV according to patient size, use of iterative reconstruction technique). Reading Location: [id number]
[2024-06-29 07:04] LABS: Phosphorus 3.1 mg/dL (2.7-4.5)
--- NOTE | 2024-06-29 07:07 | MRI_ITS ---
EXAM: BRAIN WITHOUT CONTRAST CLINICAL HISTORY: Hypoxia COMPARISON: None. TECHNIQUE: PROCEDURE: Multiplanar sequences of the brain were obtained on a 1.5 Deisy MRI system, including T1, T2, FLAIR, DWI, and ADC. No intravenous contrast was administered. FINDINGS: MRI BRAIN: No intraparenchymal hemorrhage is evident. Foci of diffusion restriction are noted scattered throughout the frontal, parietal occipital and temporal lobes.. There is no extra-axial fluid collection, mass effect, or shift of midline structures. The basal cisterns are visualized. The ventricles and cortical sulci are in proportion and consistent with the patient's age. There is no signal abnormality in the mary matter. There are scattered foci of T2/FLAIR hyperintensities in the supratentorial deep white matter that are nonspecific but most likely related to chronic small vessels ischemic changes and appears out of proportion for patient's age. The midline structures demonstrate normal contours. The craniocervical junction is unremarkable. The flow voids of the large intracranial vessels are normal. The calvarium is unremarkable. The paranasal sinuses and mastoid air cells are clear. MRI/Brain without Contrast IMPRESSION: 1. Scattered punctate areas of acute ischemia in the bilateral frontal, pariet al and occipital and temporal lobes. 2. Age-appropriate volume loss and remote small vessel ischemic changes. Findings communicated to Jaclyn Vo RN on 06/29/2024 at 1314 hours Reading Location: [facility]
--- NOTE | 2024-06-29 07:11 | CT_ITS ---
PROCEDURE: CTA HEAD AND NECK W/ CONTRAST REASON FOR EXAM: Hypoxia TECHNIQUE: CTA imaging of the head and neck from the aortic arch to the skull vertex with intravenous contrast. 3D reconstructions. COMPARISON: None. # of known CTs in the past 12 months: 0 # of known Cardiac Nuclear Medicine Studies in the past 12 months: 0 FINDINGS: Aortic Arch: Normal size and branching pattern. No significant atherosclerotic plaque. Brachiocephalic and Subclavians: Unremarkable RIGHT Carotid: Right CCA: Unremarkable. Right ICA: Unremarkable. Maximum stenosis (NASCET): 0-49% % Right ECA: Unremarkable. LEFT Carotid: Left CCA: Unremarkable. Left ICA: Moderate calcified and soft plaque. Maximum stenosis (NASCET): 0-49 % Left ECA: Unremarkable. Vertebrals: Codominant. Arise from the subclavians. Both vertebrals form the basilar. RIGHT Vertebral: Unremarkable. LEFT Vertebral: Unremarkable. No intracranial aneurysms or large vascular malformations are identified. Anterior cerebral arteries: Unremarkable. Middle cerebral arteries: Unremarkable. Basilar artery: Unremarkable. Posterior cerebral arteries: Unremarkable. Other major branches of the posterior circulation: Unremarkable. Major venous structures: Unremarkable. Other findings: No lymphadenopathy. Consolidation in the left upper lung. Lytic lesions in the 2nd medial ribs and sternum as well as the mandible CT/CTA Head AND Neck W/ Contrast IMPRESSION: 1. No hemodynamically significant stenosis in the bilateral arteries of the he ad and neck. 2. Miliary pulmonary nodules and consolidation in the left lung consistent wit h metastatic disease and pneumonia. 3. Osseous metastatic disease One or more dose reduction techniques were used (e.g., Automated exposure contr ol, adjustment of the mA and/or kV according to patient size, use of iterative reconstruction technique). Reading Location: [facility]
[2024-06-29 07:29] LABS: ALB/GLOB Ratio 1.3 RATIO (0.9-2.4); AST(SGOT) 41 U/L (<=37); Alanine Aminotransfer ALT/SGPT 30 U/L (<=46); Albumin, Serum 3.1 g/dL (3.4-4.8); Alkaline Phosphatase 123 U/L (40-129); BUN 25 mg/dL (4-19); BUN/Creat Ratio 23.9 RATIO (10-20); Calcium 8.3 mg/dL (7.6-11.0); Carbon Dioxide 20.6 mmol/L (22.0-29.0); Creatinine, Serum 1.03 mg/dL (0.70-1.20); EST Glomerular Filtration Rate 72 (>60); Estimated Creatinine Clearance 53.69 ml/min; Globulin 2.5 g/dL (2.2-4.2); Glucose 107 mg/dL (70-99); Protein, Total 5.5 g/dL (5.9-8.4); Total Bilirubin 0.34 mg/dL (0.00-1.30)
[2024-06-29 07:40] LABS: Anion Gap 10 (5-15); Chloride 104 mmol/L (96-108); Potassium 4.1 mmol/L (3.3-5.1); Sodium Level 135 mmol/L (133-145)
--- NOTE | 2024-06-29 08:31 | PN.HOSP_ITS ---
Reason for Visit Reason for Visit: Diagnoses Malignant neoplasm of prostate (06/28/24) Secondary malignant neoplasm of unspecified lung (06/28/24) Multiple subsegmental thrombotic pulmonary emboli without acute cor pulmonale (06/28/24) Other pulmonary embolism without acute cor pulmonale (06/28/24) Pneumonia, unspecified organism (06/28/24) Malignant pleural effusion (06/28/24) Difficulty in walking, not elsewhere classified (06/28/24) Weakness (06/28/24) Other specified abnormal findings of blood chemistry (06/28/24) Nosocomial condition (06/28/24) Subjective Subjective Overall feeling well, still requiring 5 L of oxygen by nasal cannula Had multiple questions regarding his MRI, progressive decline in his functional status Bothered by stuffiness in the nose for the last few months, previously prescribed some medication but that has not helped him much. He has tried Flonase but that has not led to much relief. Multiple questions were answered regarding his malignant pleural effusion, need for thoracentesis and the utility of a drain placement. Objective Data Objective Data Vital Signs: Vital Signs Temp Pulse Resp BP Pulse Ox O2 Del Method 98 F 75 22 H 174/97 H 93 Room Air 06/28/24 22:56 06/28/24 23:17 06/28/24 23:17 06/28/24 23:17 06/28/24 23:17 06/29/24 04:02 Oxygen Delivery Method Room Air Weight: 156 lb 11.979 oz Body Mass Index (BMI) 22.4 Intake & Output: Intake and Output for Last 24 Hours 06/27/24 06/28/24 06/29/24 23:59 23:59 23:59 Intake Total 840 / 840 Balance 840 / 840 Lab / Micro Data Attestation: I reviewed the patient's lab results. 06/29/24 05:31 06/29/24 05:31 Labs: Laboratory Results - last 24 hr 06/28/24 21:25: WBC 9.7, RBC 4.10 L, Hgb 12.0 L, Hct 35.8 L, MCV 87.3, MCH 29.3, MCHC 33.5, RDW Std Deviation 40.5, RDW Coeff of Clarissa 12.7, Plt Count 183, MPV 9.0, Immature Gran % (Auto) 1.900 H, Neut % (Auto) 68.3, Lymph % (Auto) 13.1 L, Nolan % (Auto) 10.5 H, Eos % (Auto) 5.3 H, Baso % (Auto) 0.9, Absolute Neuts (auto) 6.6, Absolute Lymphs (auto) 1.27, Nucleated RBC % 0, PT 17.5 H, INR 1.4, APTT 25.4, Sodium 134, Potassium 4.3, Chloride Direct 101, Carbon Dioxide 22.9, Anion Gap 10, BUN 29 H, Creatinine 1.12, Estim Creat Clear Calc 50.12, Est GFR (MDRD) Non-Af 65, BUN/Creatinine Ratio 26.3 H, Glucose 125 H, Lactic Acid 1.3, Calcium 9.0, Troponin T High Sens 368 H*, NT pro BNP II 1059 06/28/24 21:38: Urine Color Yellow, Urine Clarity Sl. Cloudy, Urine pH 6.0, Ur Specific [place] 1.015, Urine Protein 15 H, Urine Glucose (UA) Normal, Urine Ketones Negative, Urine Occult Blood 10 H, Urine Nitrite Negative, Urine Bilirubin Negative, Urine Urobilinogen Normal, Ur Leukocyte Esterase Negative, Urine RBC 0-5 SEEN, Urine WBC 0 SEEN, Ur Squamous Epith Cells 0-5 SEEN, Urine Bacteria 0 SEEN, Urine Mucus 0 SEEN 06/28/24 23:30: Troponin T Hi Sens 2 Hr 367 H*, Troponin T Hi Sens 2Hr Delta 1 06/29/24 01:27: Magnesium 2.2, Troponin T Hi Sens 4Hr 391 H*, Troponin T Hi Sens 4Hr Delta 23, Triglycerides 70, Cholesterol 209 H, VLDL Cholesterol 14, HDL Cholesterol 68, Cholesterol/HDL Ratio 3.08, Vitamin B12 374, TSH 1.190 06/29/24 05:31: WBC 10.9, RBC 3.94 L, Hgb 11.5 L, Hct 34.3 L, MCV 87.1, MCH 29.2, MCHC 33.5, RDW Std Deviation 40.6, RDW Coeff of Clarissa 12.7, Plt Count 168, MPV 9.6, Immature Gran % (Auto) 1.200 H, Neut % (Auto) 86.9 H, Lymph % (Auto) 2.9 L, Nolan % (Auto) 4.6, Eos % (Auto) 3.7, Baso % (Auto) 0.7, Absolute Neuts (auto) 9.5 H, Absolute Lymphs (auto) 0.32 L, Nucleated RBC % 0, Sodium 135, Potassium 4.1, Chloride Direct 104, Carbon Dioxide 20.6 L, Anion Gap 10, BUN 25 H, Creatinine 1.03, Estim Creat Clear Calc 53.69, Est GFR (MDRD) Non-Af 72, B UN/Creatinine Ratio 23.9 H, Glucose 107 H, Calcium 8.3, Phosphorus 3.1, Total Bilirubin 0.34, AST 41 H, ALT 30, Alkaline Phosphatase 123, Total Protein 5.5 L, Albumin 3.1 L, Globulin 2.5, Albumin/Globulin Ratio 1.3 Micro: Microbiology 06/29/24 00:26 Urine, Clean Catch Legionella Antigen - Final 06/29/24 00:26 Urine, Clean Catch Streptococcus pneumoniae Antigen (M - Final 06/28/24 21:30 Nasal Secretion MRSA (PCR) - Final Radiography Diagnostic Testing: Radiology Impression Chest X-Ray 06/28/24 21:40 IMPRESSION: 1. Bilateral pneumonia. 2. Moderate left and mild right pleural effusions. Reading Location: [facility] Chest CTA 06/28/24 22:[address]: [address] evidence of acute pulmonary embolism. 2. Bilateral pleural effusions, [id number]. 3. Bilateral miliary pulmonary nodules with lytic lesions in the thoracic spine suggestive of metastatic disease 4. Mild cardiomegaly with mild pericardial effusion One or more dose reduction techniques were used (e.g., Automated exposure control, adjustment of the mA and/or kV according to patient size, use of iterative reconstruction technique). Reading Location: [facility] Brain CT 06/29/24 06:40 IMPRESSION: No intracranial hemorrhage, mass effect or CT evidence of large vascular territory acute infarct. One or more dose reduction techniques were used (e.g., Automated exposure control, adjustment of the mA and/or kV according to patient size, use of iterative reconstruction technique). Reading Location: [facility] Physical Exam Const alert and oriented x3 HEENT head/scalp atraumatic Eyes PERRL Neck no lymphadenopathy Resp Resp Narrative: Bilateral decreased breath sounds are in interscapular and infrascapular regions Auscultation: rhonchi Cardio regular rate and regular rhythm GI normal to inspection, nondistended, normoactive bowel sounds Extremity normal to inspection Neuro oriented x3 Assessment & Plan Assessment/Plan (1) Malignant pleural effusion: PLAN: Plan 83-year-old man with history of prostate cancer with lung metastases, pulmonary embolism on apixaban, hypertension, inguinal hernia, paramedics sinusitis presented to the ED with concerns regarding worsening shortness of breath and intermittent cough. His presentation is complicated by the presence of prostate cancer and disseminated metastases. Regarding his respiratory failure is likely secondary to pleural effusion which is more on the left than the right. There can be a competent of pneumonia however his significant hypoxia and requiring 5 L of oxygen via nasal cannula. Will plan for thoracentesis. 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 -Continue IV Zosyn plus vancomycin -Interventional radiology consult regarding thoracentesis -Continue Mucinex, Tessalon Perles -Close monitoring for saturation, may need escalation to ICU based care if there are any further requirement for oxygen -Pneumonia workup has been negative so far -Interventional radiology was consulted, hoping for early thoracentesis # Multiple ischemic strokes # Underlying hypercoagulability due to prostate cancer -Appreciate neurology input -Follow-up on lipid levels, A1c levels -PT OT evaluation done -Case management evaluation for placement -Holding apixaban for now, will start him on heparin infusion with low-dose given the pulmonary embolism if needs to be off anticoagulation for thoracentesis. -Echocardiogram showed ejection fraction of 50% with no diastolic dysfunction #Dehydration -evidenced by elevated BUN/creatinine ratio of 26.3 present on admission further complexifying -Nutrition evaluation for improving p.o. intake and oral hydration -Close monitoring of input and output # Generalized Weakness with Ambulatory Dysfunction -Multiple etiologies, chronic hypoxic failure, stroke, bone metastases -PT OT evaluation -Case management evaluation # Bilateral subsegmental pulmonary embolism -Initiate bridging therapy with heparin until thoracentesis is done and then switch back to apixaban # Essential Hypertension - Resume losartan as previous plus give hydralazine IV as needed for systolic blood pressure greater than 160 mmHg. # Paranasal sinusitis; treated with oral clindamycin -Has persistent stuffiness likely due to the sinusitis # History of inguinal hernia; s/p repair - Noted. # DVT/GI prophylaxis: Ongoing therapy with heparin Charges/Coding Visit Charges Inpatient E&M: 75767 Init Hosp L3
[2024-06-29 08:32] LABS: Bedside Glucose 122 mg/dL (74-106)
[2024-06-29] MEDS: Atorvastatin Calcium 20 MG Tablet PO ×2 (10:57→21:42)
[2024-06-29] MEDS: Aspirin 325 MG Tablet PO (10:57)
[2024-06-29] MEDS: Ascorbic Acid 500 MG Tablet 1000 MG PO (10:58)
[2024-06-29] MEDS: Lactobacillis Acidophilus 1 CAP PO ×2 (10:58→21:42)
[2024-06-29] MEDS: guaiFENesin 600 MG Tablet PO ×2 (10:59→21:42)
[2024-06-29] MEDS: Zinc Sulfate 50 mg zinc (220 mg) ORAL capsule PO (11:00)
[2024-06-29] MEDS: Losartan Potassium 50 MG Tablet PO (11:00)
[2024-06-29] MEDS: Cholecalciferol (Vit D3) 125 MCG CAPSULE (5,000 UNITS) PO (11:01)
[2024-06-29] MEDS: BICALUTAMIDE 50 MG TABLET 150 MG PO (11:01)
[2024-06-29] MEDS: Mupirocin Ointment 22gm Tube 1 APPLIC NASAL ×2 (13:20→21:42)
[2024-06-29] MEDS: Vancomycin HCl 750 MG in 0.9% Normal Saline (250mL Bag) 250 ML 250 MG IV (13:25)
--- NOTE | 2024-06-29 13:50 | NEURO.CONS ---
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 Neurologic examination is limited via telemedicine, however shows left DF weakness/foot drop. MRI brain shows multifocal punctate areas of ischemia. These findings could attribute to neurologic symptoms. Etiology of stroke likely to be hypercoagulable state from known cancer, need to rule out cardiac embolism. 1. Continue anticoagulation with apixaban 2. Blood pressure goal normotensive given anticoagulation status 3. PT/OT evaluation 4. Recommend Lipid panel 5. Recommend hemoglobin A1c 6. Keep on cardiac monitoring while in the hospital 7. Needs TTE 8. 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 He was found to have pneumonia and started on IV zosyn and vancomycin, found to have MASSIEL thought due to dehydration. Today?s labs personally reviewed. Normal WBC count, hemoglobin 11.5, creatinine 1.03 with BUN 25, elevated troponin Mr. Ahmadi and his son give HPI. Starting yesterday, they noticed a change involving bilateral legs. He noticed that his knee would buckle when he walked and noticing that he was walking bowlegged. Feel like both legs are weak but left>right. Prior to coming into the hospital he was able to ambulate independently without cane or walker. Son notes that just a few days ago he was trimming his raspberry bushes. He lives with his . He is now noted to drag the left leg, changes occuring within the past 24 hours. Unclear if still progressing. He did develop new onset numbness/tingling within the past few days. There has been some twitching involving his legs. No changes in speech or swallowing. Does note worsening urinary urgency. He has experienced new constipation in that bowel movements are smaller and less frequent. He does note eating habits have changed and has been eating less. [facility] Medical History (Updated 06/28/24 @ 23:[address] Rio Cardona DO) Pulmonary emboli Hypertension Prostate cancer Home Medications ?Medication ?Instructions ?Recorded ?Last Taken ?Type losartan 50 mg tablet 50 mg PO DAILY blood pressure 06/11/24 06/28/24 08:00 History 50 mg acetaminophen 500 mg tablet 1,000 mg (2 x 500 mg) PO Q8 PRN 06/13/24 06/28/24 08:00 Rx Pain #0 tabs 500 mg apixaban 5 mg tablet 5 mg PO BID blood thin #90 tabs 06/13/24 06/28/24 18:00 Rx 5 mg bicalutamide 50 mg tablet 150 mg (3 x 50 mg) PO DAILY cancer 06/13/24 06/28/24 18:00 Rx #30 tabs 50 mg Allergy/AdvReac Type Severity Reaction Status Date / Time No Known Allergies Allergy Verified 06/28/24 20:38 Surgical History H/O inguinal hernia repair History of tonsillectomy and adenoidectomy Social History household members: family housing: house Smoking Status: Never smoker alcohol intake: never substance use type: does not use Vital Signs Vital Signs Vital Signs: 06/28/24 20:38 06/28/24 20:43 06/28/24 21:15 Temperature 98.5 F Temperature Source Oral Pulse Rate 98 77 Respiratory Rate 16 19 H Respiratory Effort Normal Respiratory Depth Respiratory Pattern Normal Blood Pressure 168/91 H 153/92 H Blood Pressure Mean 116 112 Blood Pressure Source Blood Pressure Position Blood Pressure Location Pulse Ox 98 92 Oxygen Delivery Method Room Air Room Air Oxygen Flow Rate (L/min) 06/28/24 22:36 06/28/24 22:56 06/28/24 23:17 Temperature 98 F Temperature Source Pulse Rate 80 88 75 Respiratory Rate 17 22 H Respiratory Effort Respiratory Depth Respiratory Pattern Blood Pressure 153/91 H 153/91 H 174/97 H Blood Pressure Mean 111 122 Blood Pressure Source Blood Pressure Position Blood Pressure Location Pulse Ox 92 93 Oxygen Delivery Method Room Air Oxygen Flow Rate (L/min) 06/29/24 00:35 06/29/24 04:02 06/29/24 06:48 Temperature Temperature Source Pulse Rate 91 Respiratory Rate 18 Respiratory Effort Non-Labored Short of Breath Non-Labored Short of Breath Respiratory Depth Normal Normal Respiratory Pattern Normal Normal Blood Pressure 182/90 H Blood Pressure Mean 120 Blood Pressure Source Monitor Blood Pressure Position Semi-Fowlers Blood Pressure Location Left Arm Pulse Ox 94 Oxygen Delivery Method Room Air Room Air Nasal Cannula Oxygen Flow Rate (L/min) 6 06/29/24 07:03 06/29/24 08:49 06/29/24 10:15 Temperature 98.3 F Temperature Source Oral Pulse Rate 88 91 Respiratory Rate 18 18 Respiratory Effort Respiratory Depth Respiratory Pattern Blood Pressure 171/83 H 140/85 H Blood Pressure Mean 112 103 Blood Pressure Source Monitor Monitor Blood Pressure Position Semi-Fowlers Semi-Fowlers Blood Pressure Location Left Arm Right Arm Pulse Ox 92 96 94 Oxygen Delivery Method Nasal Cannula Room Air Nasal Cannula Oxygen Flow Rate (L/min) 6 6 06/29/24 10:16 Temperature Temperature Source Pulse Rate Respiratory Rate Respiratory Effort Normal Non-Labored Respiratory Depth Normal Respiratory Pattern Normal Blood Pressure Blood Pressure Mean Blood Pressure Source Blood Pressure Position Blood Pressure Location Pulse Ox Oxygen Delivery Method Nasal Cannula Oxygen Flow Rate (L/min) 6 Weight Weight: 71.1 kg Body Mass Index (BMI) 22.4 EEG Results Procedure Details EEG Procedure Details: DESHAUN AHMADI is a 83 year old M with a past medical history of , who presents for evaluation of Electroencephalogram on DATE at TIME NIHSS NIHSS Nursing Documentation NIHSS Nursing Documentation: NIHSS: Ischemic Stroke/TIA Start: 06/29/24 06:27 Freq: [id number] Status: Active Protocol: Activity Type Activity Date Activity User E-sign Co-sign Detail Recorded Client Recorded Date Recorded By Document 06/29/24 10:15 [id number] 06/29/24 10:16 06/29/24 10:15 NIH Stroke Scale [NIHSS] A score of 0 is normal or asymptomatic . Total possible score is 42. Inpatient: RN or Physician to activate a stroke alert for onset of new stroke symptoms or with NIHSS increase >/= 3 points. Following change in neurological status, NIHSS will be performed per physician order or more frequently PRN. -1a. Level of Consciousness Alert; keenly responsive -1b. LOC Questions Answers BOTH questions correctly. -1c. LOC Commands Performs both tasks correctly . -2. Best Gaze Normal -3. Visual No visual loss -4. Facial Palsy Normal symmetrical movements -5a. Left Arm No drift; arm holds 90 (or 45 ) degrees for full 10 seconds -5b. Right Arm No drift; arm holds 90 (or 45 ) degrees for full 10 seconds -6a. Left Leg Drift; leg falls by the end of 5- seconds, but does not hit bed -6b. Right Leg Drift; leg falls by the end of 5- seconds, but does not hit bed -7. Limb Ataxia Absent -8. Sensory Normal; no sensory loss -9. Best Language No aphasia; normal -10. Dysarthria Normal -11. Extinction and Inattention No abnormality -Total 2 Query Text:A score of 0 is normal or asymptomatic. Total possible score is 42 . ED: Notify Physician for NIHSS increase by > / = 3 points. Inpatient: RN or Physician to activate a stroke alert for NIHSS increase of > / = 3 points. Coma Scale [Assess] -Eye Opening Spontaneous -Motor Obeys Commands -Verbal Oriented [Total] -Coma Scale Total 15 Physical Exam Neuro Neuro Narrative: Mental Status: The patient was alert and oriented to person, place, month, and year Language: speech is fluent and without dysarthria. Naming and repletion are intact Cranial Nerves: Pupils are equal and reactive to light. EOMI, no nystagmus is appreciated, visual pack full, face is symmetric at rest and with activation, hearing is intact to conversational tone, tongue protrudes midline. Facial sensation is intact to light touch, and equal bilaterally. Able to keep air puffed in cheeks and hold eyes tight. Motor: ?All extremities are antigravity. No pronator drift noted in upper or lower extremities. SA/EE/EF 5/5 HF 4+/5 bilaterally KE/KF 5/5 Left DF 4/5, right DF 5/5 Sensation- Intact to light touch bilaterally Coordination: No dysmetria on [id number], finger follow finger or [id number]. No truncal ataxia Gait: Observed gait from walking from bathroom using wheeled walker. Normal stride length, mildly increased stride width. There appears to be left foot drop, although bilateral HF and DF are decreased Lab / Micro Data 06/29/24 05:31 06/29/24 05:31 Labs: Laboratory Results - last 24 hr 06/28/24 21:25: WBC 9.7, RBC 4.10 L, Hgb 12.0 L, Hct 35.8 L, MCV 87.3, MCH 29.3, MCHC 33.5, RDW Std Deviation 40.5, RDW Coeff of Clarissa 12.7, Plt Count 183, MPV 9.0, Immature Gran % (Auto) 1.900 H, Neut % (Auto) 68.3, Lymph % (Auto) 13.1 L, Isabella % (Auto) 10.5 H, Eos % (Auto) 5.3 H, Baso % (Auto) 0.9, Absolute Neuts (auto) 6.6, Absolute Lymphs (auto) 1.27, Nucleated RBC % 0, PT 17.5 H, INR 1.4, APTT 25.4, Sodium 134, Potassium 4.3, Chloride Direct 101, Carbon Dioxide 22.9, Anion Gap 10, BUN 29 H, Creatinine 1.12, Estim Creat Clear Calc 50.12, Est GFR (MDRD) Non-Af 65, BUN/Creatinine Ratio 26.3 H, Glucose 125 H, Lactic Acid 1.3, Calcium 9.0, Troponin T High Sens 368 H*, NT pro BNP II 1059 06/28/24 21:38: Urine Color Yellow, Urine Clarity Sl. Cloudy, Urine pH 6.0, Ur Specific Harmans 1.015, Urine Protein 15 H, Urine Glucose (UA) Normal, Urine Ketones Negative, Urine Occult Blood 10 H, Urine Nitrite Negative, Urine Bilirubin Negative, Urine Urobilinogen Normal, Ur Leukocyte Esterase Negative, Urine RBC 0-5 SEEN, Urine WBC 0 SEEN, Ur Squamous Epith Cells 0-5 SEEN, Urine Bacteria 0 SEEN, Urine Mucus 0 SEEN 06/28/24 23:30: Troponin T Hi Sens 2 Hr 367 H*, Troponin T Hi Sens 2Hr Delta 1 06/29/24 01:27: Magnesium 2.2, Troponin T Hi Sens 4Hr 391 H*, Troponin T Hi Sens 4Hr Delta 23, Triglycerides 70, Cholesterol 209 H, VLDL Cholesterol 14, HDL Cholesterol 68, Cholesterol/HDL Ratio 3.08, Vitamin B12 374, TSH 1.190 06/29/24 05:31: WBC 10.9, RBC 3.94 L, Hgb 11.5 L, Hct 34.3 L, MCV 87.1, MCH 29.2, MCHC 33.5, RDW Std Deviation 40.6, RDW Coeff of Clarissa 12.7, Plt Count 168, MPV 9.6, Immature Gran % (Auto) 1.200 H, Neut % (Auto) 86.9 H, Lymph % (Auto) 2.9 L, Isabella % (Auto) 4.6, Eos % (Auto) 3.7, Baso % (Auto) 0.7, Absolute Neuts (auto) 9.5 H, Absolute Lymphs (auto) 0.32 L, Nucleated RBC % 0, Sodium 135, Potassium 4.1, Chloride Direct 104, Carbon Dioxide 20.6 L, Anion Gap 10, BUN 25 H, Creatinine 1.03, Estim Creat Clear Calc 53.69, Est GFR (MDRD) Non-Af 72, BUN/Creatinine Ratio 23.9 H, Glucose 107 H, Calcium 8.3, Phosphorus 3.1, Total Bilirubin 0.34, AST 41 H, ALT 30, Alkaline Phosphatase 123, Total Protein 5.5 L, Albumin 3.1 L, Globulin 2.5, Albumin/Globulin Ratio 1.3 06/29/24 06:13: POC Glucose 122 H Micro: Microbiology 06/29/24 00:26 Urine, Clean Catch Legionella Antigen - Final 06/29/24 00:26 Urine, Clean Catch Streptococcus pneumoniae Antigen (M - Final 06/28/24 21:30 Nasal Secretion MRSA (PCR) - Final Imaging Radiology Impression Chest X-Ray 06/28/24 21:40 IMPRESSION: 1. Bilateral pneumonia. 2. Moderate left and mild right pleural effusions. Reading Location: [facility] Chest CTA 06/28/24 22:41 IMPRESSION: 1. No CT evidence of acute pulmonary embolism. 2. Bilateral pleural effusions, oyug-[id number]-right. 3. Bilateral miliary pulmonary nodules with lytic lesions in the thoracic spine suggestive of metastatic disease 4. Mild cardiomegaly with mild pericardial effusion One or more dose reduction techniques were used (e.g., Automated exposure control, adjustment of the mA and/or kV according to patient size, use of iterative reconstruction technique). Reading Location: [facility] Echocardiogram 06/28/24 23:58 Interpretation Summary The estimated ejection fraction is 55 %. No evidence for diastolic dysfunction. Ordering Physician: Rio Cardona Referring Physician: Rio Cardona Performed By: Peggy Quach RCS Brain CT 06/29/24 06:40 IMPRESSION: No intracranial hemorrhage, mass effect or CT evidence of large vascular territory acute infarct. One or more dose reduction techniques were used (e.g., Automated exposure control, adjustment of the mA and/or kV according to patient size, use of iterative reconstruction technique). Reading Location: [id number] Brain MRI 06/29/24 07:07 IMPRESSION: 1. Scattered punctate areas of acute ischemia in the bilateral frontal, parietal and occipital and temporal lobes. 2. Age-appropriate volume loss and remote small vessel ischemic changes. Findings communicated to Jaclyn Vo RN on 06/29/2024 at 1314 hours [facility] 06/29/24 07:11 IMPRESSION: 1. No hemodynamically significant stenosis in the bilateral arteries of the head and neck. 2. Miliary pulmonary nodules and consolidation in the left lung consistent with metastatic disease and pneumonia. 3. Osseous metastatic disease One or more dose reduction techniques were used (e.g., Automated exposure control, adjustment of the mA and/or kV according to patient size, use of iterative reconstruction technique). Reading [facility]: [facility] Active Medications Active Medications Active Medications: Current Medications Generic Name Dose Route Start Last Admin Trade Name Freq PRN Reason Stop Dose Admin Acetaminophen 650 mg 06/28/24 23:58 Acetaminophen 325 Mg Tablet PO Q8H PRN PRN Pain 1-5/10 or Fever Al Hydroxide/Mg Hydroxide 30 ml 06/28/24 23:58 Mag Hydrox/Al Hydrox/Simeth 30 Ml Udc PO Q6H PRN PRN Gastric Burning Albuterol Sulfate 2.5 mg 06/28/24 23:58 Albuterol 2.5 Mg/3 Ml Vial.Neb. INHALATION Q2H PRN PRN SOB &/OR WHEEZING Ascorbic Acid 1,000 mg 06/29/24 08:00 06/29/24 10:58 Ascorbic Acid 500 Mg Tablet PO 1,000 mg BIDCM JENNI Administration Aspirin 325 mg 06/29/24 08:00 06/29/24 10:57 Aspirin 325 Mg Tablet PO 325 mg BREAKFAST JENNI Administration Atorvastatin Calcium 20 mg 06/29/24 22:00 Atorvastatin Calcium 20 Mg Tablet PO QHS JENNI Benzonatate 100 mg 06/28/24 23:58 Benzonatate 100 Mg Capsule PO Q4H PRN PRN COUGH Bicalutamide 150 mg 06/29/24 10:00 06/29/24 11:01 Bicalutamide 50 Mg Tablet PO 150 mg DAILY JENNI Administration Cholecalciferol 125 mcg 06/29/24 10:00 06/29/24 11:01 Cholecalciferol (Vit D3) 125 Mcg Capsule (5,000 Units) PO 125 mcg DAILY JENNI Administration Guaifenesin 600 mg 06/29/24 10:00 06/29/24 10:59 Guaifenesin 600 Mg Tablet PO 600 mg BID JENNI Administration Hydralazine HCl 5 mg 06/28/24 23:51 Hydralazine 20 Mg/Ml Vial IV Q6H PRN PRN SBP GREATER THAN 160 Protocol Piperacillin Sod/Tazobactam 50 mls @ 12.5 mls/hr 06/28/24 23:58 06/29/24 08:48 Sod 3.375 gm/ Sodium Chloride IV Not Given Q8 JENNI Vancomycin IV-PHARMACY TO DOSE 500 mls @ 250 mls/hr 06/28/24 23:58 1 each/ Sodium Chloride IV PRN PRN Rx to Dose Protocol Sodium Chloride 1,000 mls @ 70 mls/hr 06/28/24 23:58 06/29/24 12:51 IV 06/29/24 14:15 70 mls/hr .[id number] JENNI Infusion Protocol Sodium Chloride 100 mls @ 15 mls/hr 06/29/24 00:07 IV .Q6H40M PRN Saline Flush Sodium Chloride 100 mls @ 15 mls/hr 06/29/24 00:07 IV .Q6H40M PRN Additional IVPB Infusion Vancomycin HCl 750 mg/ Sodium 265 mls @ 250 mls/hr 06/29/24 13:00 06/29/24 13:25 Chloride IV 250 mls/hr Q12H JENNI Administration Losartan Potassium 50 mg 06/29/24 10:00 06/29/24 11:00 Losartan Potassium 50 Mg Tablet PO 50 mg DAILY JENNI Administration Protocol Magnesium Hydroxide 30 ml 06/28/24 23:58 Magnesium Hydroxide 30 Ml Udc PO DAILY PRN PRN Constipation Melatonin 3 mg 06/28/24 23:58 Melatonin 3 Mg Tablet PO QHS PRN PRN INSOMNIA Morphine Sulfate 2 mg 06/28/24 23:58 Morphine 2 Mg/Ml Syringe IV Q4H PRN PRN Pain Score 6-10 Mupirocin 1 applic 06/29/24 10:00 06/29/24 13:20 Mupirocin Ointment 22gm Tube NASAL 07/03/24 22:01 1 applic BID JENNI Administration Protocol Ondansetron HCl 4 mg 06/28/24 23:58 Ondansetron 4 Mg/2 Ml Vial IV Q8H PRN PRN NAUSEA/VOMITING Sodium Chloride 10 - 40 ml 06/29/24 00:07 0.9% Saline Lock 10 Ml Syringe IV UD PRN SALINE FLUSH Vancomycin Protocol 1 lab 06/30/24 10:30 Vancomycin Trough/Random Due 06/30/24 14:30 DAILY JENNI Zinc Sulfate 50 mg 06/29/24 10:00 06/29/24 11:00 Zinc Sulfate 50 Mg Zinc (220 Mg) Oral Capsule PO 50 mg DAILY JENNI Administration
--- NOTE | 2024-06-29 14:50 | CASEMGMT ---
Social Work Pt positive for stroke. PHQ9 depression screen completed with score of 4 indicating minimal depression. SW educated pt to correlation between stroke and depression. Pt with no concerns at this time. KLEVER Nolasco
--- NOTE | 2024-06-29 14:51 | CASEMGMT ---
Social Work Therapy is recommending inpatient rehab for pt. KENIA met with pt and son Efren to discuss discharge plan. SW explained therapy concerns and recommendations. Pt lives at home with his in a 2 story home with 2 steps to enter and First floor set up. Pt is unable to assist at home. Pt daughters have been providing some additional support over the last week. Pt was independent with all ADLs and IALDS prior to illness. Pt has no health insurance and pt and son deny need for self pay resources. SW educated pt and son on different levels of care and cost including Inpatient Rehab, SNF, HHC and outpatient therapy. A list of [facility] and SNF providers including quality and resource use data and consistent with the patient?s preferred geographic region, medical needs, and insurance network were provided from the [employer]. Son requesting time to consider options. Pt to remain hospitalized for procedure on Monday. SW will follow up on Monday for discharge planning. KLEVER Nolasco
[2024-06-29] MEDS: 0.9% Saline Lock 10 ML Syringe IV (15:02)
[2024-06-29] MEDS: HEPARIN/D5w 25,000 UNITS 25,000 UNITS/250 ML IV.SOLN. 11 UNITS CONT INF (15:03)
--- NOTE | 2024-06-29 16:55 | CASEMGMT ---
KIRSTEN CALLOWAY readmission note: Index admission: Admitted 06/11 w/lt pleural effusion, B subsegmental PE. Hx prostate CA. Pt had lt thoracentesis 06/12, suspicious for malignancy. Discharged home 06/13 on Eliquis and to f/u with PCP and urology to start hormone deprivation therapy. He was provided w/30-day free supply of Eliquis from [facility] Retail pharmacy. Current admission: Admitted 06/28 w/PNA, malignant pleural effusion, elevated troponin. KIRSTEN CALLOWAY to room. Pt resting in bed w/HOB elevated, family @ bedside. Introduced self and role. Son states pt did get the 30-day free supply of Eliquis @ discharge last admission and has been taking as prescribed. Pt has been in to see Dr Guerra this past Monday and Monday and has an upcoming appt with him on 07/09. He has also been in to see Dr Larose since last admission. SW has met w/pt today. See Linda AQUINO, note from today. Pt and family deny having any further needs at this time. Discharge plan: RU vs SNF. Candelario DELAROSAN RN BRODIE
[2024-06-29 21:21] LABS: Partial Thromboplast Time 59.5 Seconds (24.1-36.2)
[2024-06-30] VITALS (7 sets, daily range): BP systolic 142–159; BP diastolic 78–95; PULSE 76–92; RESP 18; TEMP 36.4–37.2; O2SAT 91–95; BMI 22.4; BMI 23.0
[2024-06-30] MEDS: Vancomycin HCl 750 MG in 0.9% Normal Saline (250mL Bag) 250 ML 250 MG IV (01:51)
[2024-06-30 03:36] LABS: Partial Thromboplast Time 72.1 Seconds (24.1-36.2)
[2024-06-30 04:06] LABS: Cholesterol 179 mg/dL (<=200); High Density Lipoprotein 64 mg/dL; Low Density Lipoprotein Calc. 101 mg/dL; Triglycerides 69 mg/dL; Very Low Density Lipoprotein 14 mg/dL (5-40); cholesterol:hdl ratio screen 2.78
[2024-06-30] MEDS: Piperacil/Tazobactam 3.375 GM in 0.9% Normal Saline (50mL MB+) 50 ML IV ×3 (06:47→21:09)
[2024-06-30 08:28] LABS: Absolute Lymphocyte Count 0.95 X10^3/uL (0.83-4.51); Absolute Neutrophil Count 8.5 X10^3/uL (2.0-7.7); Basophil# 0.06 X10^3/uL; Basophil% 0.5 % (0-1); Eosinophil# 0.89 X10^3/uL; Eosinophils% 7.9 % (0-5); Hematocrit 34.7 % (40-54); Hemoglobin 11.4 g/dL (13.0-16.5); Lymphocyte # 0.95 X10^3/ul (0.83-4.51); Lymphocyte % 8.4 % (19-41); Mean Corp Hgb Conc 32.9 g/dL (32-36); Mean Corpuscular Hgb 29.2 pg (27.0-32.0); Mean Corpuscular Volume 88.7 fL (80-94); Mean Platelet Vol. 10.1 fl (6.2-12.0); Monocyte# 0.79 X10^3/uL; NRBC Flagged by Analyzer 0 % (0-5); Neutrophil # 8.52 X10^3/uL (2.7-7.7); Neutrophil % 75.2 % (47-70); Platelet Count 176 K/mm3 (150-450); RBC Distribution Width CV 13.1 % (11.6-14.6); RBC Distribution Width SD 42.4 fl (35.1-43.9); Red Blood Count 3.91 M/mm3 (4.6-6.2); White Blood Count 11.3 K/mm3 (4.4-11.0)
[2024-06-30 10:37] LABS: Partial Thromboplast Time 69.1 Seconds (24.1-36.2)
[2024-06-30 10:41] LABS: Anion Gap 13 (5-15); BUN 21 mg/dL (4-19); BUN/Creat Ratio 21.6 RATIO (10-20); Calcium 8.3 mg/dL (7.6-11.0); Carbon Dioxide 18.6 mmol/L (22.0-29.0); Chloride 102 mmol/L (96-108); Creatinine, Serum 0.97 mg/dL (0.70-1.20); EST Glomerular Filtration Rate 77 (>60); Estimated Creatinine Clearance 58.41 ml/min (50-250); Glucose 110 mg/dL (70-99); Potassium 4.2 mmol/L (3.3-5.1); Sodium Level 133 mmol/L (133-145)
[2024-06-30] MEDS: Aspirin 325 MG Tablet PO (11:04)
[2024-06-30] MEDS: Lactobacillis Acidophilus 1 CAP PO ×3 (11:04→21:10)
[2024-06-30] MEDS: BICALUTAMIDE 50 MG TABLET 150 MG PO (11:04)
[2024-06-30] MEDS: Mupirocin Ointment 22gm Tube 1 APPLIC NASAL ×2 (11:05→21:09)
[2024-06-30] MEDS: guaiFENesin 600 MG Tablet PO ×2 (11:05→21:10)
[2024-06-30] MEDS: Ascorbic Acid 500 MG Tablet 1000 MG PO ×2 (11:05→16:07)
[2024-06-30] MEDS: Cholecalciferol (Vit D3) 125 MCG CAPSULE (5,000 UNITS) PO (11:05)
[2024-06-30] MEDS: Losartan Potassium 50 MG Tablet PO (11:05)
[2024-06-30] MEDS: Zinc Sulfate 50 mg zinc (220 mg) ORAL capsule PO (11:05)
[2024-06-30] MEDS: HEPARIN/D5w 25,000 UNITS 25,000 UNITS/250 ML IV.SOLN. 9 UNITS CONT INF (11:22)
--- NOTE | 2024-06-30 11:41 | PCM.PN.HOSP ---
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 Objective Data Objective Data Vital Signs: Vital Signs Temp Pulse Resp BP Pulse Ox O2 Del Method O2 Flow Rate 97.7 F L 88 18 142/79 H 94 Nasal Cannula 5 06/30/24 10:15 06/30/24 10:15 06/30/24 10:15 06/30/24 10:15 06/30/24 10:15 06/30/24 10:15 06/30/24 10:15 Oxygen Flow Rate (L/min) 5 Oxygen Delivery Method Nasal Cannula Weight: 160 lb 9.6 oz Body Mass Index (BMI) 23.0 Intake & Output: Intake and Output for Last 24 Hours 06/28/24 06/29/24 06/30/24 23:59 23:59 23:59 Intake Total 2805.00 / 2805.00 770.9 / 770.9 Balance 2805.00 / 2805.00 770.9 / 770.9 Lab / Micro Data Attestation: I reviewed the patient's lab results. 06/30/24 03:18 06/30/24 03:18 Labs: Laboratory Results - last 24 hr 06/29/24 20:50: APTT 59.5 H 06/30/24 03:18: WBC 11.3 H, RBC 3.91 L, Hgb 11.4 L, Hct 34.7 L, MCV 88.7, MCH 29.2, MCHC 32.9, RDW Std Deviation 42.4, RDW Coeff of Clarissa 13.1, Plt Count 176, MPV 10.1, Immature Gran % (Auto) 1.000 H, Neut % (Auto) 75.2 H, Lymph % (Auto) 8.4 L, King % (Auto) 7.0, Eos % (Auto) 7.9 H, Baso % (Auto) 0.5, Absolute Neuts (auto) 8.5 H, Absolute Lymphs (auto) 0.95, Nucleated RBC % 0, APTT 72.1 H, Sodium 133, Potassium 4.2, Chloride Direct 102, Carbon Dioxide 18.6 L, Anion Gap 13, BUN 21 H, Creatinine 0.97, Estim Creat Clear Calc 58.41, Est GFR (MDRD) Non-Af 77, BUN/Creatinine Ratio 21.6 H, Glucose 110 H, Calcium 8.3, Phosphorus 3.0, Triglycerides 69, Cholesterol 179, VLDL Cholesterol 14, HDL Cholesterol 64, Cholesterol/HDL Ratio 2.78 06/30/24 10:08: APTT 69.1 H Micro: Microbiology 06/29/24 00:26 Urine, Clean Catch Legionella Antigen - Final 06/29/24 00:26 Urine, Clean Catch Streptococcus pneumoniae Antigen (M - Final 06/28/24 21:30 Nasal Secretion MRSA (PCR) - Final Radiography Diagnostic Testing: Radiology Impression Echocardiogram 06/28/24 23:58 Interpretation Summary The estimated ejection fraction is 55 %. No evidence for diastolic dysfunction. Ordering Physician: Rio Cardona Referring Physician: Rio Cardona Performed By: Peggy Quach RCS Brain MRI 06/29/24 07:07 IMPRESSION: 1. Scattered punctate areas of acute ischemia in the bilateral frontal, parietal and occipital and temporal lobes. 2. Age-appropriate volume loss and remote small vessel ischemic changes. Findings communicated to Jaclyn Vo RN on 06/29/2024 at 1314 hours Reading Location: [facility] Physical Exam Const alert, oriented x3 and no apparent distress HEENT head/scalp atraumatic Eyes PERRL Resp Resp Narrative: Bilateral decreased breath sounds Cardio regular rate GI normal to inspection, nondistended, normoactive bowel sounds Extremity normal to inspection Neuro oriented x3 Neuro Narrative: Gross weakness over bilateral thighs, power/5, no sensory deficit Assessment & Plan Assessment/Plan (1) Generalized weakness: (2) Pulmonary emboli: QUALIFIERS: Pulmonary embolism type: multiple subsegmental (without acute cor pulmonale) Qualified Code(s): I26.94 - Multiple subsegmental thrombotic pulmonary emboli without acute cor pulmonale PLAN: Plan 83-year-old man with history of prostate cancer with lung metastases, pulmonary embolism on apixaban, hypertension, inguinal hernia, paramedics sinusitis presented to the ED with concerns regarding worsening shortness of breath and intermittent cough. His presentation is complicated by the presence of prostate cancer and disseminated metastases. Regarding his respiratory failure is likely secondary to pleural effusion which is more on the left than the right. There can be a competent of pneumonia however his significant hypoxia and requiring 5 L of oxygen via nasal cannula. Will plan for thoracentesis. He is having lower extremity weakness but on examination there is no focal neurological deficit. No changes in bowel or bladder habits, no features concerning for cauda equina syndrome like presentation. If there are any changes we will consider MRI pelvis given the degree of tumor burden that can be spinal cord involvement. 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 -Continue IV Zosyn plus vancomycin -Interventional radiology consult regarding thoracentesis and also drain placement -Continue Mucinex, Tessalon Perles -Close monitoring for saturation, may need escalation to ICU based care if there are any further requirement for oxygen -Pneumonia workup has been negative so far # Multiple ischemic strokes # Underlying hypercoagulability due to prostate cancer -Appreciate neurology input -PT OT evaluation done -Case management evaluation for placement -Holding apixaban for now, will start him on heparin infusion with low-dose given the pulmonary embolism if needs to be off anticoagulation for thoracentesis. -Echocardiogram showed ejection fraction of 50% with no diastolic dysfunction -HDL 64, triglycerides 69, total cholesterol 170 #Dehydration -evidenced by elevated BUN/creatinine ratio of 26.3 present on admission further complexifying -Nutrition evaluation for improving p.o. intake and oral hydration -Close monitoring of input and output # Generalized Weakness with Ambulatory Dysfunction -Multiple etiologies, chronic hypoxic failure, stroke, bone metastases -PT OT evaluation -Case management evaluation # Bilateral subsegmental pulmonary embolism -Initiate bridging therapy with heparin until thoracentesis is done and then switch back to apixaban # Essential Hypertension - Resume losartan as previous plus give hydralazine IV as needed for systolic blood pressure greater than 160 mmHg. # Paranasal sinusitis; treated with oral clindamycin -Has persistent stuffiness likely due to the sinusitis # History of inguinal hernia; s/p repair - Noted. # DVT/GI prophylaxis: Ongoing therapy with heparin Charges/Coding Visit Charges Inpatient E&M: 84686 Init Hosp L2
[2024-06-30] MEDS: Vancomycin IV 1,000 MG/200 ML BAG 200 MG IV (14:33)
--- NOTE | 2024-06-30 16:47 | PCM.RX.CS ---
Consult Antibiotic Management Pharmacy has been consulted to manage selected antibiotic: Vancomycin Type of Intervention Type of Consult: Follow-up Suspected Infection Suspected Infection: Pneumonia Labs Labs: Sodium 133 mmol/L (133-145) 06/30/24 03:18 Potassium 4.2 mmol/L (3.3-5.1) 06/30/24 03:18 Carbon Dioxide 18.6 mmol/L (22.0-29.0) L 06/30/24 03:18 Anion Gap 13 (5-15) 06/30/24 03:18 BUN 21 mg/dL (4-19) H 06/30/24 03:18 Creatinine 0.97 mg/dL (0.70-1.20) 06/30/24 03:18 Est GFR (MDRD) Non-Af 77 (>60) 06/30/24 03:18 BUN/Creatinine Ratio 21.6 RATIO (10-20) H 06/30/24 03:18 Glucose 110 mg/dL (70-99) H 06/30/24 03:18 Vancomycin Trough 11.0 ug/mL (5.0-15.0) 06/30/24 12:48 Microbiology Microbiology: Microbiology 06/29/24 00:26 Urine, Clean Catch Legionella Antigen - Final 06/29/24 00:26 Urine, Clean Catch Streptococcus pneumoniae Antigen (M - Final 06/28/24 21:30 Nasal Secretion MRSA (PCR) - Final Goal Trough Goal Trough: 15-20 mcg/mL Pharmacy Plan for Drug Dosing Pharmacy Plan for Drug Dosing: VANCOMYCIN LEVEL RECEIVED Current Vancomycin Dose: 750mg q12h () Number of Doses Received: x1 1750mg loading dose, x2 750mg doses Vancomycin Level: 11.0 (drawn 1248 on 06/30/24) Hours Since Last Dose: 11 hours since last 750mg dose on 06/30/24 at 0151 Renal Function: SrCr 0.97 Renal Function Trend: SrCr improving (was 1.12) Lab/Micro: Vancomycin Plan/Comments: resulted trough of 11 is below the ordered goal trough range of 15-20. recommend increasing dose to 1000mg q12h and checking a trough prior to the 4th dose Pending Level: 07/02/24 at 0130 Pharmacy Service will continue to monitor and adjust dosing as required. Follow-Up Labs Follow-Up Labs: Trough: Vancomycin (07/02/24 at 0130)
[2024-06-30 17:15] LABS: Partial Thromboplast Time 56.6 Seconds (24.1-36.2)
--- NOTE | 2024-06-30 18:32 | NEURO.PNOTE ---
Assessment and Plan: Neuro Assessment/Plan 83 y/o man with h/o prostate cancer with metastasis to the lung, pulmonary embolism on apixaban hypertension p/w lower extremity weakness and difficulty ambulating. MRI brain shows multifocal punctate areas of ischemia. TTE- EF-55% Today, patient reports feeling better with NIHSS-0. 1. Continue anticoagulation with apixaban 2. Blood pressure goal normotensive given anticoagulation status 3. PT/OT evaluation 4. Recommend Lipid panel 5. Recommend hemoglobin A1c 6. Keep on cardiac monitoring while in the hospital 7. Needs TTE 8. Stroke team to see tomorrow morning Diagnosis: Multifocal strokes, hypercoagulable state from known cancer vs cardiac Plan: Continue AC for PE and plan for thoracocentesis. Check LDL and A1c. If patient needs to be long-term AC then no need for event monitor on discharge otherwise please order on discharge. 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 Control of vascular risk factors. I personally attended this patient and spent a total time of 30 minutes evaluating this patient including clinical assessment, review of chart, medical history imaging, and determining appropriate treatment and workup. Subject: Neurology Subjective Today, he reports feeling better with stable neurological exam, NIHSS-0. He reports of SOB though. NIHSS NIHSS Nursing Documentation NIHSS Nursing Documentation: NIHSS: Ischemic Stroke/TIA Start: 06/29/24 06:27 Freq: Q8 Status: Active Protocol: Activity Type Activity Date Activity User E-sign Co-sign Detail Recorded Client Recorded Date Recorded By Document 06/30/24 14:30 MM [id number] 06/30/24 14:39 MM 06/30/24 14:30 NIH Stroke Scale [NIHSS] A score of 0 is normal or asymptomatic . Total possible score is 42. Inpatient: RN or Physician to activate a stroke alert for onset of new stroke symptoms or with NIHSS increase >/= 3 points. Following change in neurological status, NIHSS will be performed per physician order or more frequently PRN. -1a. Level of Consciousness Alert; keenly responsive -1b. LOC Questions Answers BOTH questions correctly. -1c. LOC Commands Performs both tasks correctly . -2. Best Gaze Normal -3. Visual No visual loss -4. Facial Palsy Normal symmetrical movements -5a. Left Arm No drift; arm holds 90 (or 45 ) degrees for full 10 seconds -5b. Right Arm No drift; arm holds 90 (or 45 ) degrees for full 10 seconds -6a. Left Leg Drift; leg falls by the end of 5- seconds, but does not hit bed -6b. Right Leg No drift; leg holds 30-degree position for full 5 seconds -7. Limb Ataxia Present in 1 limb -8. Sensory Normal; no sensory loss -9. Best Language No aphasia; normal -10. Dysarthria Normal -11. Extinction and Inattention No abnormality -Total 2 Query Text:A score of 0 is normal or asymptomatic. Total possible score is 42 . ED: Notify Physician for NIHSS increase by > / = 3 points. Inpatient: RN or Physician to activate a stroke alert for NIHSS increase of > / = 3 points. Coma Scale [Assess] -Eye Opening Spontaneous -Motor Obeys Commands -Verbal Oriented [Total] -Coma Scale Total 15 NIHSS 1a. Level of Consciousness: Alert; keenly responsive 1b. LOC Questions: Answers BOTH questions correctly. 1c. LOC Commands: Performs both tasks correctly. 2. Best Gaze: Normal 3. Visual: No visual loss 4. Facial Palsy: Normal symmetrical movements 5a. Left Arm: No drift; arm holds 90 (or 45) degrees for full 10 seconds 5b. Right Arm: No drift; arm holds 90 (or 45) degrees for full 10 seconds 6a. Left Leg: No drift; leg holds 30-degree position for full 5 seconds 6b. Right Leg: No drift; leg holds 30-degree position for full 5 seconds 7. Limb Ataxia: Absent 8. Sensory: Normal; no sensory loss 9. Best Language: No aphasia; normal 10. Dysarthria: Normal 11. Extinction and Inattention: No abnormality Total: 0 EEG Results Procedure Details EEG Procedure Details: DESHAUN TAN is a 83 year old M with a past medical history of , who presents for evaluation of Electroencephalogram on DATE at TIME Objective Data Objective Data Vital Signs: Vital Signs Temp Pulse Resp BP Pulse Ox O2 Del Method O2 Flow Rate 98.3 F 92 18 157/78 H 91 Nasal Cannula 6 06/30/24 14:30 06/30/24 14:30 06/30/24 14:30 06/30/24 14:30 06/30/24 14:45 06/30/24 14:30 06/30/24 14:45 Oxygen Flow Rate (L/min) 6 Oxygen Delivery Method Nasal Cannula Weight: 72.847 kg Body Mass Index (BMI) 23.0 Intake & Output: Intake and Output for Last 24 Hours 06/28/24 06/29/24 06/30/24 23:59 23:59 23:59 Intake Total 2805.00 / 2805.00 1860.9 / 1860.9 Balance 2805.00 / 2805.00 1860.9 / 1860.9 Lab / Micro Data 06/30/24 03:18 06/30/24 03:18 Labs: Laboratory Results - last 24 hr 06/29/24 20:50: APTT 59.5 H 06/30/24 03:18: WBC 11.3 H, RBC 3.91 L, Hgb 11.4 L, Hct 34.7 L, MCV 88.7, MCH 29.2, MCHC 32.9, RDW Std Deviation 42.4, RDW Coeff of Clarissa 13.1, Plt Count 176, MPV 10.1, Immature Gran % (Auto) 1.000 H, Neut % (Auto) 75.2 H, Lymph % (Auto) 8.4 L, Becker % (Auto) 7.0, Eos % (Auto) 7.9 H, Baso % (Auto) 0.5, Absolute Neuts (auto) 8.5 H, Absolute Lymphs (auto) 0.95, Nucleated RBC % 0, APTT 72.1 H, Sodium 133, Potassium 4.2, Chloride Direct 102, Carbon Dioxide 18.6 L, Anion Gap 13, BUN 21 H, Creatinine 0.97, Estim Creat Clear Calc 58.41, Est GFR (MDRD) Non-Af 77, BUN/Creatinine Ratio 21.6 H, Glucose 110 H, Calcium 8.3, Phosphorus 3.0, Triglycerides 69, Cholesterol 179, VLDL Cholesterol 14, HDL Cholesterol 64, Cholesterol/HDL Ratio 2.78 06/30/24 10:08: APTT 69.1 H 06/30/24 12:48: Vancomycin Trough 11.0 06/30/24 16:56: APTT 56.6 H Micro: Microbiology 06/29/24 00:26 Urine, Clean Catch Legionella Antigen - Final 06/29/24 00:26 Urine, Clean Catch Streptococcus pneumoniae Antigen (M - Final 06/28/24 21:30 Nasal Secretion MRSA (PCR) - Final Physical Exam Narrative General: The patient appears nutritionally appropriate, well-groomed, and appears comfortable in no acute distress. Mental Status:? The patient?s mental status was normal including orientation.? Language was intact.? Cranial nerves:? Visual pack full, and extra-ocular motion was intact. Symmetric face. Motor: Normal strength in all extremities. Sensation: Intact to touch in all extremities.? Coordination:? Bilateral finger to nose was normal.? There was no dysmetria. Gait:? deferred.
[2024-06-30] MEDS: Atorvastatin Calcium 20 MG Tablet PO (21:10)
[2024-06-30 23:30] LABS: Partial Thromboplast Time 56.6 Seconds (24.1-36.2)
[2024-07-01] VITALS (8 sets, daily range): BP systolic 135–163; BP diastolic 89–97; PULSE 70–92; RESP 16–20; TEMP 36.7–37.2; O2SAT 92–95; BMI 23.7
[2024-07-01] MEDS: Vancomycin IV 1,000 MG/200 ML BAG 200 MG IV ×2 (02:22→13:47)
[2024-07-01] MEDS: Piperacil/Tazobactam 3.375 GM in 0.9% Normal Saline (50mL MB+) 50 ML IV ×3 (05:25→20:40)
[2024-07-01 06:41] LABS: Partial Thromboplast Time 56.5 Seconds (24.1-36.2)
[2024-07-01] MEDS: Ascorbic Acid 500 MG Tablet 1000 MG PO ×2 (09:42→17:47)
[2024-07-01] MEDS: Lactobacillis Acidophilus 1 CAP PO ×2 (09:42→17:47)
[2024-07-01] MEDS: Cholecalciferol (Vit D3) 125 MCG CAPSULE (5,000 UNITS) PO (09:43)
[2024-07-01] MEDS: guaiFENesin 600 MG Tablet PO ×2 (09:43→20:40)
[2024-07-01] MEDS: BICALUTAMIDE 50 MG TABLET 150 MG PO (09:43)
[2024-07-01] MEDS: Losartan Potassium 50 MG Tablet PO (09:43)
[2024-07-01] MEDS: Zinc Sulfate 50 mg zinc (220 mg) ORAL capsule PO (09:44)
--- NOTE | 2024-07-01 11:15 | CASEMGMT ---
SW met with patient. Introduced self and role at [facility]. SW asked patient if he and his family have had any further discussions regarding him going somewhere for rehab. Patient said they have not. SW told patient SW will continue to follow and assist with d/c planning. Karolina TEMPLETON
--- NOTE | 2024-07-01 13:16 | PN_ITS ---
Subjective Subjective Patient seen and examined. His son and son-in-law were by his bedside. He had no active complaints. He denied any chest pain, cough, shortness of breath, palpitations, nausea vomiting or any other symptoms. Review of systems otherwise negative. He remains on 5 L of oxygen. Patient was placed on aspirin 325 mg daily for the stroke and so per radiology cannot do the thoracentesis today. He has otherwise remained hemodynamically stable. Objective Data Objective Data Vital Signs: Vital Signs Temp Pulse Resp BP Pulse Ox O2 Del Method O2 Flow Rate 98.1 F 81 18 149/94 H 95 Nasal Cannula 5 07/01/24 12:20 07/01/24 12:20 07/01/24 12:20 07/01/24 12:20 07/01/24 12:20 07/01/24 12:20 07/01/24 12:20 Oxygen Flow Rate (L/min) 5 Oxygen Delivery Method Nasal Cannula Weight: 165 lb 5.547 oz Body Mass Index (BMI) 23.7 Intake & Output: Intake and Output for Last 24 Hours 06/29/24 06/30/24 07/01/24 23:59 23:59 23:59 Intake Total 2805.00 / 2805.00 1910.9 / 2150.9 540 / 540 Balance 2805.00 / 2805.00 1910.9 / 2150.9 540 / 540 Lab / Micro Data 06/30/24 03:18 06/30/24 03:18 Labs: Laboratory Results - last 24 hr 06/30/24 12:48: Vancomycin Trough 11.0 06/30/24 16:56: APTT 56.6 H 06/30/24 23:03: APTT 56.6 H 07/01/24 05:55: APTT 56.5 H Micro: Microbiology 06/28/24 10:20 Blood Culture (Wb) - Right Wrist Blood Culture - Preliminary No growth in 48 hours. 06/28/24 10:32 Blood Culture (Wb) - Arm Left Blood Culture - Preliminary No growth in 48 hours. 06/29/24 00:26 Urine, Clean Catch Legionella Antigen - Final 06/29/24 00:26 Urine, Clean Catch Streptococcus pneumoniae Antigen (M - Final 06/28/24 21:30 Nasal Secretion MRSA (PCR) - Final Radiography Diagnostic Testing: Radiology Impression Carotid Duplex 06/29/24 06:27 Interpretation Summary Mild (<50%) stenosis right extracranial internal carotid. Mild (<50%) stenosis left extracranial internal carotid. Flow within the vertebral arteries is antegrade bilaterally. Ordering Physician: Rio Cardona Referring Physician: Quentin Guerra Performed By: Nicolás Gaviria RVT Physical Exam Const alert, oriented x3 and no apparent distress General Appearance: cooperative and well developed HEENT normocephalic, head/scalp atraumatic, moist oral mucous membranes and oropharynx normal Eyes PERRL and EOMs intact bilaterally Neck no lymphadenopathy and supple Lymph Lymphatic: no lymphadenopathy noted and no lymphedema noted Resp Resp Narrative: mildly diminished breath sounds bibasally, no wheezes and no crackles. On 5L of oxygen by nasal canula Cardio regular rate, regular rhythm, S1 normal heart sound, S2 normal heart sound and no murmurs GI normal to inspection, nondistended, normoactive bowel sounds, soft to palpation, non-tender and non-distended Extremity normal capillary refill, no clubbing, cyanosis or edema and no calf tenderness General Extremity: no tenderness to palpation of joints or extremities Skin General Skin Exam: no breakdown Neuro CN's II-XII intact bilaterally, no focal motor deficits and no sensory deficits noted Coordination / Balance: ifedva-yn-[id number] test normal Motor Exam: strength 5/5 throughout Psych thought process normal, cooperative and affect normal Appearance: appropriate Assessment & Plan Assessment/Plan (1) Pulmonary emboli: QUALIFIERS: Pulmonary embolism type: multiple subsegmental (without acute cor pulmonale) Qualified Code(s): I26.94 - Multiple subsegmental thrombotic pulmonary emboli without acute cor pulmonale (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 * thoracentesis was ordered today, but he could not have it due to being on aspirin 325mg. * to have thoracentesis on Monday. * breathing treatment with bronchodilators. * #Acute CVA * Was admitted with lower extremity weakness and difficulty ambulating. He had left distal foot weakness and foot drop. * MRI of the brain showed multifocal punctate areas of ischemia which was thought to be due to underlying hypercoagulability due to prostate cancer. * On Eliquis but this is on hold placed on heparin drip pending thoracentesis. * 2D echo showed EF of 50% with no diastolic dysfunction. * Carotid ultrasound showed mild less than 50% right extracranial internal carotid artery stenosis and mild left extracranial internal carotid stenosis. Stroke alert emergency room * Aspirin 3 two 5 mg daily discontinued and patient placed on aspirin 81 mg daily. On high intensity statin #Debility and weakness: Likely due to metastatic prostate cancer. PT OT on board. Fall precautions. #Bilateral subsegmental PE * Currently on heparin drip. Once he has thoracentesis will switch back to Eliquis. #Benign essential hypertension: On losartan. IV hydralazine as needed #DVT prophylaxis: Currently on heparin drip. Charges/Coding Visit Charges Inpatient E&M: 75660 Subs Hosp L2
[2024-07-01] MEDS: HEPARIN/D5w 25,000 UNITS 25,000 UNITS/250 ML IV.SOLN. 9 UNITS CONT INF (16:32)
[2024-07-01] MEDS: Atorvastatin Calcium 20 MG Tablet PO (20:39)
[2024-07-01] MEDS: Mupirocin Ointment 22gm Tube 1 APPLIC NASAL (20:39)
[2024-07-02 02:25] LABS: Vancomycin, Trough Level 15.4 ug/mL (5.0-15.0)
[2024-07-02 02:28] VITALS: BMI 23.2
[2024-07-02] MEDS: Vancomycin IV 1,000 MG/200 ML BAG 200 MG IV ×2 (02:33→14:34)
[2024-07-02] MEDS: 0.9% Saline Lock 10 ML Syringe IV ×2 (02:34→20:51)
--- NOTE | 2024-07-02 02:34 | PCM.RX.CS ---
Consult Antibiotic Management Pharmacy has been consulted to manage selected antibiotic: Vancomycin Type of Intervention Type of Consult: Follow-up Suspected Infection Suspected Infection: Pneumonia Labs Labs: Sodium 133 mmol/L (133-145) 06/30/24 03:18 Potassium 4.2 mmol/L (3.3-5.1) 06/30/24 03:18 Carbon Dioxide 18.6 mmol/L (22.0-29.0) L 06/30/24 03:18 Anion Gap 13 (5-15) 06/30/24 03:18 BUN 21 mg/dL (4-19) H 06/30/24 03:18 Creatinine 0.97 mg/dL (0.70-1.20) 06/30/24 03:18 Est GFR (MDRD) Non-Af 77 (>60) 06/30/24 03:18 BUN/Creatinine Ratio 21.6 RATIO (10-20) H 06/30/24 03:18 Glucose 110 mg/dL (70-99) H 06/30/24 03:18 Vancomycin Trough 15.4 ug/mL (5.0-15.0) H 07/02/24 01:39 Microbiology Microbiology: Microbiology 06/28/24 10:20 Blood Culture (Wb) - Right Wrist Blood Culture - Preliminary No growth in 48 hours. 06/28/24 10:32 Blood Culture (Wb) - Arm Left Blood Culture - Preliminary No growth in 48 hours. 06/29/24 00:26 Urine, Clean Catch Legionella Antigen - Final 06/29/24 00:26 Urine, Clean Catch Streptococcus pneumoniae Antigen (M - Final 06/28/24 21:30 Nasal Secretion MRSA (PCR) - Final Dosing Weight Weight used for dosin kg Estimated Creatinine Clearance Estimated Creatinine Clearance: 58 Goal Trough Goal Trough: 15-20 mcg/mL Pharmacy Plan for Drug Dosing Pharmacy Plan for Drug Dosing: Vancomycin trough level of 15.4, drawn 12hrs post-dose, was within the target range of 15-20. Will continue dosing at 1000mg q12h, and will draw another trough level in two days. Pharmacy Service will continue to monitor and adjust dosing as required. Follow-Up Labs Follow-Up Labs: Trough: Vancomycin Date/Time Labs Ordered Labs to be done on [date and time ordered]: 07/04/24 @0130
[2024-07-02 04:20] VITALS: BP 148/91; PULSE 71; RESP 18; TEMP 36.6; O2SAT 96
[2024-07-02] MEDS: Piperacil/Tazobactam 3.375 GM in 0.9% Normal Saline (50mL MB+) 50 ML IV ×3 (05:25→23:10)
[2024-07-02 06:24] LABS: Red Blood Count 3.77 M/mm3 (4.6-6.2); White Blood Count 9.7 K/mm3 (4.4-11.0)
[2024-07-02 06:25] LABS: Absolute Lymphocyte Count 1.07 X10^3/uL (0.83-4.51); Absolute Neutrophil Count 6.8 X10^3/uL (2.0-7.7); Basophil# 0.07 X10^3/uL; Basophil% 0.7 % (0-1); Eosinophil# 0.81 X10^3/uL; Eosinophils% 8.3 % (0-5); Hematocrit 32.6 % (40-54); Lymphocyte # 1.07 X10^3/ul (0.83-4.51); Mean Corp Hgb Conc 33.7 g/dL (32-36); Mean Corpuscular Hgb 29.2 pg (27.0-32.0); Mean Corpuscular Volume 86.5 fL (80-94); Mean Platelet Vol. 9.5 fl (6.2-12.0); Monocyte# 0.84 X10^3/uL; Monocyte% 8.6 % (0-10); NRBC Flagged by Analyzer 0 % (0-5); Neutrophil # 6.81 X10^3/uL (2.7-7.7); Platelet Count 208 K/mm3 (150-450); RBC Distribution Width CV 12.4 % (11.6-14.6); RBC Distribution Width SD 39.6 fl (35.1-43.9)
[2024-07-02 06:36] LABS: Anion Gap 10 (5-15); BUN 18 mg/dL (4-19); BUN/Creat Ratio 20.7 RATIO (10-20); Calcium,Total 8.5 mg/dL (7.6-11.0); Carbon Dioxide 21.8 mmol/L (21.0-32.0); Chloride 101 mmol/L (98-108); Creatinine, Serum 0.87 mg/dL (0.70-1.20); EST Glomerular Filtration Rate 85 (>60); Estimated Creatinine Clearance 65.26 ml/min (50-250); Glucose 107 mg/dL (70-99); Potassium 3.9 mmol/L (3.3-5.1); Sodium Level 133 mmol/L (133-145)
[2024-07-02 06:59] LABS: Partial Thromboplast Time 49.5 Seconds (24.1-36.2)
[2024-07-02 08:25] VITALS: O2SAT 97
[2024-07-02 09:56] VITALS: BP 130/73; PULSE 84; RESP 18; TEMP 36.9; O2SAT 96
[2024-07-02] MEDS: BICALUTAMIDE 50 MG TABLET 150 MG PO (10:00)
[2024-07-02] MEDS: Cholecalciferol (Vit D3) 125 MCG CAPSULE (5,000 UNITS) PO (10:00)
[2024-07-02] MEDS: Losartan Potassium 50 MG Tablet PO (10:00)
[2024-07-02] MEDS: Zinc Sulfate 50 mg zinc (220 mg) ORAL capsule PO (10:00)
[2024-07-02] MEDS: Lactobacillis Acidophilus 1 CAP PO (10:00)
[2024-07-02] MEDS: guaiFENesin 600 MG Tablet PO ×2 (10:00→23:09)
[2024-07-02] MEDS: Aspirin 81 MG TAB.CHEW PO (10:00)
[2024-07-02] MEDS: Ascorbic Acid 500 MG Tablet 1000 MG PO (10:00)
--- NOTE | 2024-07-02 10:40 | CASEMGMT ---
KENIA met with patient and his son in law regarding d/c planning. Family does plan on taking patient home at discharge. They were interested in Palliative Care. KENIA let them know KENIA will notify RN BRODIE. They were not sure about therapy at discharge. KENIA notified RN BRODIE. Karolina Henry CHEMISTRY ACCOUNT MANAGER [place]
--- NOTE | 2024-07-02 11:09 | PN_ITS ---
Subjective Subjective Patient seen and examined. He had no complaints this morning. He did have a bit of coughing. Review of systems however is otherwise negative. Objective Data Objective Data Vital Signs: Vital Signs Temp Pulse Resp BP Pulse Ox O2 Del Method O2 Flow Rate 98.4 F 84 18 130/73 H 96 Nasal Cannula 4 07/02/24 09:56 07/02/24 09:56 07/02/24 09:56 07/02/24 09:56 07/02/24 09:56 07/02/24 10:00 07/02/24 10:25 Oxygen Flow Rate (L/min) 4 Oxygen Delivery Method Nasal Cannula Weight: 161 lb 13.109 oz Body Mass Index (BMI) 23.2 Intake & Output: Intake and Output for Last 24 Hours 06/30/24 07/01/24 07/02/24 23:59 23:59 23:59 Intake Total 1910.9 / 2150.9 1040 / 1390 786.35 / 786.35 Balance 1910.9 / 2150.9 1040 / 1390 786.35 / 786.35 Lab / Micro Data 07/02/24 05:52 07/02/24 05:52 Labs: Laboratory Results - last 24 hr 06/29/24 01:27: Magnesium 2.2, Troponin T Hi Sens 4Hr Cancelled, Troponin T Hi Sens 4Hr Delta Cancelled, Triglycerides 70, Cholesterol 209 H, LDL Cholesterol, Calc 127, VLDL Cholesterol 14, HDL Cholesterol 68, Cholesterol/HDL Ratio 3.08, Vitamin B12 374, TSH 1.190 06/30/24 03:18: Phosphorus 3.0, Triglycerides 69, Cholesterol 179, LDL Cholesterol, Calc 101, VLDL Cholesterol 14, HDL Cholesterol 64, Cholesterol/HDL Ratio 2.78 07/02/24 01:39: Vancomycin Trough 15.4 H 07/02/24 05:52: WBC 9.7, RBC 3.77 L, Hgb 11.0 L, Hct 32.6 L, MCV 86.5, MCH 29.2, MCHC 33.7, RDW Std Deviation 39.6, RDW Coeff of Clarissa 12.4, Plt Count 208, MPV 9.5, Immature Gran % (Auto) 1.400 H, Neut % (Auto) 70.0, Lymph % (Auto) 11.0 L, [place] % (Auto) 8.6, Eos % (Auto) 8.3 H, Baso % (Auto) 0.7, Absolute Neuts (auto) 6.8, Absolute Lymphs (auto) 1.07, Nucleated RBC % 0, APTT 49.5 H, Sodium 133, Potassium 3.9, Chloride 101, Carbon Dioxide 21.8, Anion Gap 10, BUN 18, Creatinine 0.87, Estim Creat Clear Calc 65.26, Est GFR (MDRD) Non-Af 85, B UN/Creatinine Ratio 20.7 H, Glucose 107 H, Calcium 8.5 Micro: Microbiology 06/28/24 10:20 Blood Culture (Wb) - Right Wrist Blood Culture - Preliminary No growth in 48 hours. 06/28/24 10:32 Blood Culture (Wb) - Arm Left Blood Culture - Preliminary No growth in 48 hours. 06/29/24 00:26 Urine, Clean Catch Legionella Antigen - Final 06/29/24 00:26 Urine, Clean Catch Streptococcus pneumoniae Antigen (M - Final 06/28/24 21:30 Nasal Secretion MRSA (PCR) - Final Physical Exam Const alert, oriented x3, no apparent distress and average body habitus General Appearance: cooperative and well developed HEENT normocephalic, head/scalp atraumatic, hearing grossly normal bilaterally, moist oral mucous membranes and oropharynx normal Eyes PERRL, EOMs intact bilaterally and conjunctivae normal Neck no lymphadenopathy, supple and no JVD Lymph Lymphatic: no lymphadenopathy noted and no lymphedema noted Resp Resp Narrative: mildly diminished breath sounds bibasally, no wheezes and no crackles. On 5L of oxygen by nasal canula Cardio regular rate, regular rhythm, S1 normal heart sound, S2 normal heart sound and no murmurs GI normal to inspection, nondistended, normoactive bowel sounds, soft to palpation, non-tender and non-distended Extremity normal to inspection, full ROM, normal capillary refill, no clubbing, cyanosis or edema and no calf tenderness General Extremity: no tenderness to palpation of joints or extremities Skin General Skin Exam: no breakdown Neuro oriented x3, CN's II-XII intact bilaterally, moves all extremities, no focal motor deficits and no sensory deficits noted Sensorium / Orientation: awake and alert Speech: speech normal Motor Exam: strength 5/5 throughout Psych thought process normal, cooperative and affect normal Appearance: appropriate Assessment & Plan Assessment/Plan (1) Pulmonary emboli: QUALIFIERS: Pulmonary embolism type: multiple subsegmental (without acute cor pulmonale) Qualified Code(s): I26.94 - Multiple subsegmental thrombotic pulmonary emboli without acute cor pulmonale (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 * thoracentesis was ordered today, but he could not have it due to being on aspirin 325mg. * to have thoracentesis on Monday. * breathing treatment with bronchodilators. * patient counseled that he could have a pleurx catheter also inserted eventually to help with recurrence of the effusion. He will discuss this with his PCP and urologist. * #Acute CVA * Was admitted with lower extremity weakness and difficulty ambulating. He had left distal foot weakness and foot drop. * MRI of the brain showed multifocal punctate areas of ischemia which was thought to be due to underlying hypercoagulability due to prostate cancer. * On Eliquis but this is on hold placed on heparin drip pending thoracentesis. * 2D echo showed EF of 50% with no diastolic dysfunction. * Carotid ultrasound showed mild less than 50% right extracranial internal carotid artery stenosis and mild left extracranial internal carotid stenosis. Stroke alert emergency room * Aspirin 325 mg daily discontinued and patient placed on aspirin 81 mg daily. On high intensity statin #Debility and weakness: Likely due to metastatic prostate cancer. PT OT on board. Fall precautions. #Bilateral subsegmental PE * Currently on heparin drip. Once he has thoracentesis will switch back to Eliquis. #Benign essential hypertension: On losartan. IV hydralazine as needed #DVT prophylaxis: Currently on heparin drip. Charges/Coding Visit Charges Inpatient E&M: 08017 Subs Hosp L2
[2024-07-02 11:35] VITALS: BMI 23.2
[2024-07-02 11:50] VITALS: O2SAT 94
[2024-07-02 15:52] VITALS: BP 141/85; PULSE 88; RESP 17; TEMP 36.5; O2SAT 95
[2024-07-02] MEDS: 0.9% Normal Saline (100mL Bag) 100 ML 15 ML IV (15:59)
[2024-07-02] MEDS: HEPARIN/D5w 25,000 UNITS 25,000 UNITS/250 ML IV.SOLN. 11 UNITS CONT INF (18:50)
[2024-07-02 21:40] LABS: Partial Thromboplast Time 50.4 Seconds (24.1-36.2)
[2024-07-02] MEDS: Atorvastatin Calcium 20 MG Tablet PO (23:09)
[2024-07-02] MEDS: MELATONIN 3 MG TABLET PO (23:09)
[2024-07-02] MEDS: Mupirocin Ointment 22gm Tube 1 APPLIC NASAL (23:10)
[2024-07-02 23:15] VITALS: BP 149/89; PULSE 79; RESP 18; TEMP 36.8; O2SAT 94
[2024-07-03] VITALS (13 sets, daily range): BP systolic 133–155; BP diastolic 71–93; PULSE 73–90; RESP 16–24; TEMP 36.5–36.9; O2SAT 92–97; BMI 23.3
[2024-07-03] MEDS: BENZOCAINE/MENTHOL 1 LOZENGE 2 LOZENGE MUCOUS MEM (03:05)
[2024-07-03] MEDS: Vancomycin IV 1,000 MG/200 ML BAG 200 MG IV ×2 (03:05→13:13)
[2024-07-03 05:18] LABS: Absolute Lymphocyte Count 1.62 X10^3/uL (0.83-4.51); Absolute Neutrophil Count 7.7 X10^3/uL (2.0-7.7); Basophil% 0.9 % (0-1); Eosinophil# 0.94 X10^3/uL; Eosinophils% 8.2 % (0-5); Hematocrit 34.7 % (40-54); Hemoglobin 11.7 g/dL (13.0-16.5); Lymphocyte # 1.62 X10^3/ul (0.83-4.51); Lymphocyte % 14.1 % (19-41); Mean Corp Hgb Conc 33.7 g/dL (32-36); Mean Corpuscular Hgb 29.2 pg (27.0-32.0); Mean Corpuscular Volume 86.5 fL (80-94); Mean Platelet Vol. 9.3 fl (6.2-12.0); Monocyte# 0.91 X10^3/uL; Monocyte% 7.9 % (0-10); NRBC Flagged by Analyzer 0 % (0-5); Neutrophil # 7.69 X10^3/uL (2.7-7.7); Neutrophil % 67.2 % (47-70); Platelet Count 250 K/mm3 (150-450); RBC Distribution Width CV 12.4 % (11.6-14.6); RBC Distribution Width SD 39.3 fl (35.1-43.9); Red Blood Count 4.01 M/mm3 (4.6-6.2); White Blood Count 11.5 K/mm3 (4.4-11.0)
[2024-07-03 05:53] LABS: Anion Gap 10 (5-15); BUN 20 mg/dL (4-19); BUN/Creat Ratio 22.1 RATIO (10-20); Calcium,Total 8.6 mg/dL (7.6-11.0); Carbon Dioxide 22.2 mmol/L (21.0-32.0); Chloride 99 mmol/L (98-108); Creatinine, Serum 0.89 mg/dL (0.70-1.20); EST Glomerular Filtration Rate 84 (>60); Estimated Creatinine Clearance 62.66 ml/min (50-250); Glucose 127 mg/dL (70-99); Potassium 4.2 mmol/L (3.3-5.1); Sodium Level 131 mmol/L (133-145)
[2024-07-03] MEDS: Piperacil/Tazobactam 3.375 GM in 0.9% Normal Saline (50mL MB+) 50 ML IV ×3 (06:14→23:54)
[2024-07-03 06:28] LABS: Partial Thromboplast Time 84.7 Seconds (24.1-36.2)
[2024-07-03] MEDS: Ascorbic Acid 500 MG Tablet 1000 MG PO ×2 (08:53→17:43)
[2024-07-03] MEDS: Lactobacillis Acidophilus 1 CAP PO ×3 (08:54→17:43)
[2024-07-03] MEDS: Losartan Potassium 50 MG Tablet PO (08:55)
[2024-07-03] MEDS: BICALUTAMIDE 50 MG TABLET 150 MG PO (08:55)
[2024-07-03] MEDS: guaiFENesin 600 MG Tablet PO (08:55)
[2024-07-03] MEDS: Zinc Sulfate 50 mg zinc (220 mg) ORAL capsule PO (08:56)
[2024-07-03] MEDS: Cholecalciferol (Vit D3) 125 MCG CAPSULE (5,000 UNITS) PO (08:56)
[2024-07-03] MEDS: Mupirocin Ointment 22gm Tube 1 APPLIC NASAL (08:57)
[2024-07-03 10:30] LABS: International Normalized Ratio 1.1
[2024-07-03 10:31] LABS: Partial Thromboplast Time 39.4 Seconds (24.1-36.2)
--- NOTE | 2024-07-03 11:45 | RAD_ITS ---
PROCEDURE: AP UPRIGHT PORTABLE CHEST INSP VIEW REASON FOR EXAM: POST THORACENTESIS. TECHNIQUE: Portable AP upright. COMPARISON: 06/28/2024. FINDINGS: Heart size is stable No pneumothorax following left thoracentesis. Pleural fluid has decreased following thoracentesis. Right pleural effusion is again noted. Diffuse bilateral airspace disease is stable. RAD/Chest Insp/Exp 2 View IMPRESSION: No evidence of pneumothorax following thoracentesis. Decrease in the left pleural effusion. Chest otherwise stable. Reading Location: [place] [id number]
[2024-07-03] MEDS: Lidocaine 2% (20 ml mdv) 20 ML Vial INFILT (11:50)
--- NOTE | 2024-07-03 12:14 | PCM.OPRPT ---
Problems Associated Problem List Diagnoses (1) Malignant pleural effusion: Multi Select Codes Radiology Radiology US Procedures: 79573 Thoracentesis Operative Report (Standard) Operative Information Date of Procedure: 07/03/24 Pre-Operative Diagnosis: Pleural Effusion Post-Operative Diagnosis: Pleural Effusion Surgery/Procedure Performed: Ultrasound-guided thoracentesis bus washer: No Type of Anesthesia: Local Procedure Start Time: 11:45 Procedure Stop Time: 12:13 Select all DRAINS/GRAFTS/IMPLANTS that apply: None Estimated Blood Loss: 0 Specimen collected: No Description of surgery: PROCEDURE: Ultrasound Guided Thoracentesis ORDERING PROVIDER: Dr. Rio Cardona INDICATION: Male, 84 years old. Pleural effusion. PROVIDER: AUGUST Nguyễn PROCEDURE: The risks, benefits, and alternatives to the procedure were explained to the patient. The specific risks of bleeding, infection, and pneumothorax requiring chest tube insertion were discussed and accepted. Written informed consent was obtained. The patient was being treated with a heparin drip on an inpatient floor, which was held for >2 hours preprocedure per protocol. Coagulation studies were redrawn and assessed prior to beginning the procedure. This case was discussed with Dr. Louis. The patient was placed in the sitting, upright position. Ultrasonographic evaluation of the bilateral lower pleural spaces was carried out. An adequate pocket was identified in the left lower pleural space. The overlying skin was prepped with chlorhexidine and draped in sterile fashion. 2 % lidocaine was administered subcutaneously for local anesthesia. Under ultrasound guidance, a 5-Bel[place]ian thoracentesis needle/catheter system was advanced into the left posterior lower pleural fluid collection. Two attempts were made. During the first attempt, the patient had moved and the catheter was withdrawn. Additional 2% lidocaine was administered subcutaneously at this time. The second attempt was successful and was assisted by Dr. Louis. 1290 ml of red-tinged colored fluid was drained. The catheter was removed, and a sterile dressing was applied. The patient tolerated the procedure well. A chest x-ray was ordered. No evidence of pneumothorax. Patient to return to inpatient bed. IMPRESSION: Successful ultrasound guided thoracentesis of left pleural effusion. Surgical Findings: None Complications Complications: No
--- NOTE | 2024-07-03 12:43 | PN_ITS ---
Subjective Subjective Patient seen and examined. He had no active complaints today. He is for thoractentesis today. He is on 4L of oxygen today. Review of systems is otherwise negative. Objective Data Objective Data Vital Signs: Vital Signs Temp Pulse Resp BP Pulse Ox O2 Del Method O2 Flow Rate 97.7 F L 73 18 137/83 H 93 Nasal Cannula 4 07/03/24 08:50 07/03/24 12:30 07/03/24 12:30 07/03/24 12:30 07/03/24 12:30 07/03/24 12:30 07/03/24 12:30 Oxygen Flow Rate (L/min) 4 Oxygen Delivery Method Nasal Cannula Weight: 163 lb 2.273 oz Body Mass Index (BMI) 23.3 Intake & Output: Intake and Output for Last 24 Hours 07/01/24 07/02/24 07/03/24 23:59 23:59 23:59 Intake Total 1040 / 1390 1196.82 / 1196.82 413.23 / 413.23 Output Total 1290 / 1290 Balance 1040 / 1390 1196.82 / 1196.82 -876.77 / -876.77 Lab / Micro Data 07/03/24 05:01 07/03/24 05:01 Labs: Laboratory Results - last 24 hr 07/02/24 13:29: APTT 50.0 H 07/02/24 21:09: APTT 50.4 H 07/03/24 05:01: WBC 11.5 H, RBC 4.01 L, Hgb 11.7 L, Hct 34.7 L, MCV 86.5, MCH 29.2, MCHC 33.7, RDW Std Deviation 39.3, RDW Coeff of Clarissa 12.4, Plt Count 250, MPV 9.3, Immature Gran % (Auto) 1.700 H, Neut % (Auto) 67.2, Lymph % (Auto) 14.1 L, [place] % (Auto) 7.9, Eos % (Auto) 8.2 H, Baso % (Auto) 0.9, Absolute Neuts (auto) 7.7, Absolute Lymphs (auto) 1.62, Nucleated RBC % 0, APTT 84.7 H, Sodium 131 L, Potassium 4.2, Chloride 99, Carbon Dioxide 22.2, Anion Gap 10, BUN 20 H, Creatinine 0.89, Estim Creat Clear Calc 62.66, Est GFR (MDRD) Non-Af 84, B UN/Creatinine Ratio 22.1 H, Glucose 127 H, Calcium 8.6 07/03/24 10:16: PT 14.0, INR 1.1, APTT 39.4 H Micro: Microbiology 06/28/24 10:20 Blood Culture (Wb) - Right Wrist Blood Culture - Preliminary No growth in 48 hours. 06/28/24 10:32 Blood Culture (Wb) - Arm Left Blood Culture - Preliminary No growth in 48 hours. 06/29/24 00:26 Urine, Clean Catch Legionella Antigen - Final 06/29/24 00:26 Urine, Clean Catch Streptococcus pneumoniae Antigen (M - Final 06/28/24 21:30 Nasal Secretion MRSA (PCR) - Final Physical Exam Const alert, oriented x3, no apparent distress and average body habitus General Appearance: cooperative and well developed HEENT normocephalic, head/scalp atraumatic, hearing grossly normal bilaterally, moist oral mucous membranes and oropharynx normal Eyes PERRL, EOMs intact bilaterally and conjunctivae normal Neck no lymphadenopathy, supple and no JVD Lymph Lymphatic: no lymphadenopathy noted and no lymphedema noted Resp Resp Narrative: mildly diminished breath sounds bibasally, no wheezes and no crackles. On 4L of oxygen by nasal canula Cardio regular rate, regular rhythm, S1 normal heart sound, S2 normal heart sound and no murmurs GI normal to inspection, nondistended, normoactive bowel sounds, soft to palpation, non-tender and non-distended Extremity normal to inspection, full ROM, normal capillary refill, no clubbing, cyanosis or edema and no calf tenderness General Extremity: no tenderness to palpation of joints or extremities Skin Skin Narrative: P General Skin Exam: no breakdown Neuro oriented x3, CN's II-XII intact bilaterally, moves all extremities, no focal motor deficits and no sensory deficits noted Sensorium / Orientation: awake, alert, oriented to person, oriented to place and oriented to time Coordination / Balance: [id number] test normal Speech: speech normal Motor Exam: strength 5/5 throughout Psych thought process normal, cooperative and affect normal Appearance: appropriate Assessment & Plan Assessment/Plan (1) Pulmonary emboli: QUALIFIERS: Pulmonary embolism type: multiple subsegmental (without acute cor pulmonale) Qualified Code(s): I26.94 - Multiple subsegmental thrombotic pulmonary emboli without acute cor pulmonale (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 * thoracentesis was ordered today, but he could not have it due to being on aspirin 325mg. * to have thoracentesis today * breathing treatment with bronchodilators. * patient counseled that he could have a pleurx catheter also inserted eventually to help with recurrence of the effusion. He will discuss this with his PCP and urologist. * #Acute CVA * Was admitted with lower extremity weakness and difficulty ambulating. He had left distal foot weakness and foot drop. * MRI of the brain showed multifocal punctate areas of ischemia which was thought to be due to underlying hypercoagulability due to prostate cancer. * On Eliquis but this is on hold placed on heparin drip pending thoracentesis. * 2D echo showed EF of 50% with no diastolic dysfunction. * Carotid ultrasound showed mild less than 50% right extracranial internal carotid artery stenosis and mild left extracranial internal carotid stenosis. Stroke alert emergency room * Aspirin 325 mg daily discontinued and patient placed on aspirin 81 mg daily. On high intensity statin #Debility and weakness: Likely due to metastatic prostate cancer. PT OT on board. Fall precautions. #Bilateral subsegmental PE * Currently on heparin drip. Once he has thoracentesis will switch back to Eliquis. #Benign essential hypertension: On losartan. IV hydralazine as needed #DVT prophylaxis: Currently on heparin drip. Disposition: anticipate dc over the next 1-2 days. Charges/Coding Visit Charges Inpatient E&M: 21894 Subs Hosp L2
[2024-07-03] MEDS: 0.9% Saline Lock 10 ML Syringe IV ×2 (13:14→23:59)
--- NOTE | 2024-07-03 14:27 | CASEMGMT ---
Addendum entered by Earnestine Colon 07/03/24 15:57: KIRSTEN CALLOWAY in to follow-up with patient and family. Patient and family have agreed to hospice consult. Patient and family have no further question or concerns. RN BRODIE updated hospitalist, order received. KIRSTEN CALLOWAY updated SW regarding hospice referral. Original Note: KIRSTEN CALLOWAY in to follow-up with patient and family as requested. Son in law at bedside. Patient and son in law wanting to discuss palliative vs hospice care. RN CM provided patient and son in law with handout discussing palliative care vs hospice care. RN CM encourage patient and family to discuss goals of care and CM could follow-up with patient and family. Son in law voiced appreciation and had no further questions or concerns. CM will continue to follow this patient and plan for a safe discharge.
--- NOTE | 2024-07-03 16:01 | CASEMGMT ---
RN BRODIE informed SW that patient and his family would like to talk with hospice. SW called Hospice and spoke with Maria Luisa on referral line. SW also faxed information to Hospice. Karolina TEMPLETON
[2024-07-04] MEDS: APIXABAN 5 MG TABLET PO ×3 (00:01→22:19)
[2024-07-04] MEDS: Lactobacillis Acidophilus 1 CAP PO ×4 (00:01→22:19)
[2024-07-04] MEDS: guaiFENesin 600 MG Tablet PO ×3 (00:01→22:19)
[2024-07-04] MEDS: Atorvastatin Calcium 20 MG Tablet PO ×2 (00:02→22:19)
[2024-07-04] MEDS: Mupirocin Ointment 22gm Tube 1 APPLIC NASAL (00:02)
[2024-07-04 00:07] VITALS: BP 147/86; PULSE 80; RESP 17; TEMP 36.6; O2SAT 92
[2024-07-04 01:40] VITALS: BMI 23.3
[2024-07-04 02:56] LABS: Vancomycin, Trough Level 17.9 ug/mL (5.0-15.0)
--- NOTE | 2024-07-04 03:38 | PCM.RX.CS ---
Consult Antibiotic Management Pharmacy has been consulted to manage selected antibiotic: Vancomycin Type of Intervention Type of Consult: Follow-up Labs Labs: Sodium 131 mmol/L (133-145) L 07/03/24 05:01 Potassium 4.2 mmol/L (3.3-5.1) 07/03/24 05:01 Chloride 99 mmol/L (98-108) 07/03/24 05:01 Carbon Dioxide 22.2 mmol/L (21.0-32.0) 07/03/24 05:01 Anion Gap 10 (5-15) 07/03/24 05:01 BUN 20 mg/dL (4-19) H 07/03/24 05:01 Creatinine 0.89 mg/dL (0.70-1.20) 07/03/24 05:01 Est GFR (MDRD) Non-Af 84 (>60) 07/03/24 05:01 BUN/Creatinine Ratio 22.1 RATIO (10-20) H 07/03/24 05:01 Glucose 127 mg/dL (70-99) H 07/03/24 05:01 Vancomycin Trough 17.9 ug/mL (5.0-15.0) H 07/04/24 01:45 Microbiology Microbiology: Microbiology 06/28/24 10:20 Blood Culture (Wb) - Right Wrist Blood Culture - Preliminary No growth in 48 hours. 06/28/24 10:32 Blood Culture (Wb) - Arm Left Blood Culture - Preliminary No growth in 48 hours. 06/29/24 00:26 Urine, Clean Catch Legionella Antigen - Final 06/29/24 00:26 Urine, Clean Catch Streptococcus pneumoniae Antigen (M - Final 06/28/24 21:30 Nasal Secretion MRSA (PCR) - Final Goal Trough Goal Trough: 15-20 mcg/mL Pharmacy Plan for Drug Dosing Pharmacy Plan for Drug Dosing: Pharmacy Service will continue to monitor and adjust dosing as required. TROUGH 17.9 @ 12.5 HOURS, NO CHANGES, FOLLOW UP TROUGH IN 4 DAYS Follow-Up Labs Follow-Up Labs: Trough: Vancomycin Date/Time Labs Ordered Labs to be done on [date and time ordered]: 07/08 @ 6668
[2024-07-04] MEDS: Vancomycin IV 1,000 MG/200 ML BAG 200 MG IV ×2 (03:40→13:31)
[2024-07-04] MEDS: 0.9% Saline Lock 10 ML Syringe IV (03:43)
[2024-07-04] MEDS: Piperacil/Tazobactam 3.375 GM in 0.9% Normal Saline (50mL MB+) 50 ML IV ×2 (05:08→13:30)
[2024-07-04 05:15] VITALS: BP 152/91; PULSE 82; RESP 16; TEMP 37.1; O2SAT 95
[2024-07-04 05:43] VITALS: BMI 23.3
[2024-07-04 06:26] LABS: Absolute Neutrophil Count 7.8 X10^3/uL (2.0-7.7); Basophil# 0.06 X10^3/uL; Basophil% 0.6 % (0-1); Eosinophil# 0.62 X10^3/uL; Eosinophils% 6.6 % (0-5); Hematocrit 33.3 % (40-54); Hemoglobin 11.2 g/dL (13.0-16.5); Lymphocyte % 5.3 % (19-41); Mean Corp Hgb Conc 33.6 g/dL (32-36); Mean Corpuscular Hgb 29.1 pg (27.0-32.0); Mean Corpuscular Volume 86.5 fL (80-94); Mean Platelet Vol. 9.5 fl (6.2-12.0); Monocyte# 0.22 X10^3/uL; Monocyte% 2.3 % (0-10); NRBC Flagged by Analyzer 0 % (0-5); Neutrophil # 7.79 X10^3/uL (2.7-7.7); Neutrophil % 83.2 % (47-70); POSITIVE DIFFERENTIAL YES; Platelet Count 254 K/mm3 (150-450); RBC Distribution Width CV 12.2 % (11.6-14.6); RBC Distribution Width SD 38.8 fl (35.1-43.9); Red Blood Count 3.85 M/mm3 (4.6-6.2); White Blood Count 9.4 K/mm3 (4.4-11.0)
[2024-07-04 06:55] LABS: Anion Gap 10 (5-15); BUN 17 mg/dL (4-19); BUN/Creat Ratio 18.5 RATIO (10-20); Calcium,Total 8.5 mg/dL (7.6-11.0); Carbon Dioxide 23.4 mmol/L (21.0-32.0); Chloride 99 mmol/L (98-108); Creatinine, Serum 0.93 mg/dL (0.70-1.20); EST Glomerular Filtration Rate 80 (>60); Estimated Creatinine Clearance 59.96 ml/min (50-250); Glucose 114 mg/dL (70-99); Potassium 3.9 mmol/L (3.3-5.1); Sodium Level 132 mmol/L (133-145)
--- NOTE | 2024-07-04 08:56 | CASEMGMT ---
Social Work Hospice meet scheduled today at 1330. RN updated. KLEVER Yin
[2024-07-04 09:15] VITALS: O2SAT 95
[2024-07-04 10:39] VITALS: BP 125/73; PULSE 95; RESP 18; TEMP 36.7; O2SAT 97
[2024-07-04] MEDS: Zinc Sulfate 50 mg zinc (220 mg) ORAL capsule PO (10:49)
[2024-07-04] MEDS: Losartan Potassium 50 MG Tablet PO (10:50)
[2024-07-04] MEDS: BICALUTAMIDE 50 MG TABLET 150 MG PO (10:50)
[2024-07-04] MEDS: Cholecalciferol (Vit D3) 125 MCG CAPSULE (5,000 UNITS) PO (10:50)
[2024-07-04] MEDS: Ascorbic Acid 500 MG Tablet 1000 MG PO (10:51)
--- NOTE | 2024-07-04 15:01 | PCM.PN.HOSP ---
Reason for Visit Reason for Visit: Diagnoses Malignant neoplasm of prostate (06/28/24) Secondary malignant neoplasm of unspecified lung (06/28/24) Multiple subsegmental thrombotic pulmonary emboli without acute cor pulmonale (06/28/24) Other pulmonary embolism without acute cor pulmonale (06/28/24) Pneumonia, unspecified organism (06/28/24) Malignant pleural effusion (06/28/24) Difficulty in walking, not elsewhere classified (06/28/24) Weakness (06/28/24) Other specified abnormal findings of blood chemistry (06/28/24) Nosocomial condition (06/28/24) Subjective Subjective Saw patient at bedside this morning, daughter present. Patient was mildly fatigued appearing but otherwise sitting up comfortably in bedside chair, conversing normally, in no acute distress. He was requiring 5 L nasal cannula to maintain appropriate oxygen saturations but was breathing comfortably. Stated his shortness of breath does feel somewhat improved after thoracentesis yesterday. Continues to feel more fatigued than his baseline. Denies any fevers or chills. Denies any other new concerns this morning. Objective Data Objective Data Vital Signs: Vital Signs Temp Pulse Resp BP Pulse Ox O2 Del Method O2 Flow Rate 98.1 F 95 18 125/73 H 97 Nasal Cannula 5 07/04/24 10:39 07/04/24 10:39 07/04/24 10:39 07/04/24 10:39 07/04/24 10:39 07/04/24 11:12 07/04/24 11:12 Oxygen Flow Rate (L/min) 5 Oxygen Delivery Method Nasal Cannula Weight: 73.9 kg Body Mass Index (BMI) 23.3 Intake & Output: Intake and Output for Last 24 Hours 07/02/24 07/03/24 07/04/24 23:59 23:59 23:59 Intake Total 1196.82 / 1196.82 1263.23 / 1263.23 300 / 300 Output Total 1290 / 1290 Balance 1196.82 / 1196.82 -26.77 / -26.77 300 / 300 Lab / Micro Data 07/04/24 05:38 07/04/24 05:38 Labs: Laboratory Results - last 24 hr 07/04/24 01:45: Vancomycin Trough 17.9 H 07/04/24 05:38: WBC 9.4, RBC 3.85 L, Hgb 11.2 L, Hct 33.3 L, MCV 86.5, MCH 29.1, MCHC 33.6, RDW Std Deviation 38.8, RDW Coeff of Clarissa 12.2, Plt Count 254, MPV 9.5, Immature Gran % (Auto) 2.000 H, Neut % (Auto) 83.2 H, Lymph % (Auto) 5.3 L, [place] % (Auto) 2.3, Eos % (Auto) 6.6 H, Baso % (Auto) 0.6, Absolute Neuts (auto) 7.8 H, Absolute Lymphs (auto) 0.50 L, Nucleated RBC % 0, Sodium 132 L, Potassium 3.9, Chloride 99, Carbon Dioxide 23.4, Anion Gap 10, BUN 17, Creatinine 0.93, Estim Creat Clear Calc 59.96, Est GFR (MDRD) Non-Af 80, BUN/Creatinine Ratio 18.5, Glucose 114 H, Calcium 8.5 Micro: Microbiology 06/28/24 10:20 Blood Culture (Wb) - Right Wrist Blood Culture - Final No growth in 5 days. 06/28/24 10:32 Blood Culture (Wb) - Arm Left Blood Culture - Final No growth in 5 days. 06/29/24 00:26 Urine, Clean Catch Legionella Antigen - Final 06/29/24 00:26 Urine, Clean Catch Streptococcus pneumoniae Antigen (M - Final 06/28/24 21:30 Nasal Secretion MRSA (PCR) - Final Physical Exam Const alert, oriented x3, no apparent distress and average body habitus Constitutional Narrative: Elderly male, somewhat chronically ill and mildly fatigued appearing, otherwise sitting up comfortably in bedside chair, conversing normally, in no acute distress. General Appearance: cooperative and comfortable HEENT normocephalic, head/scalp atraumatic, hearing grossly normal bilaterally, nasal mucous membranes and turbinates normal and moist oral mucous membranes Eyes PERRL, EOMs intact bilaterally and conjunctivae normal Neck full ROM Chest inspection of chest normal Resp normal respiratory effort and no use of accessory muscles Resp Narrative: Breathing comfortably on 5 L nasal cannula at rest. Significantly diminished breath sounds in left lung base with crackles noted. Breath sounds otherwise fairly clear throughout and no wheezing noted. Cardio regular rate, regular rhythm, no murmurs and peripheral pulses 2+ throughout GI normal to inspection, nondistended, normoactive bowel sounds, soft to palpation, non-tender and non-distended Back/Spine normal ROM Extremity normal to inspection, full ROM and no pedal edema Skin no rashes or lesions noted Neuro moves all extremities and no focal motor deficits Speech: speech normal Psych mental status grossly normal Assessment & Plan Assessment/Plan (1) CVA (cerebral vascular accident): (2) Generalized weakness: (3) Malignant pleural effusion: PLAN: Plan Patient is an 84-year-old male who presented [facility] ED on 06/28/2024 with worsening weakness. 1. Acute CVA, acute on chronic debility ? Neurology followed. PT/OT/case management following. Presented with lower extremity weakness and difficulty ambulating. MRI brain showed multifocal punctate areas of ischemia. Echo with EF 55%. Lipid panel with total cholesterol 209, LDL 127, HDL 68. TSH normal. Continue Eliquis, aspirin and statin. 2. Hypoxia secondary to malignant pleural effusion ? Not on home oxygen. Requiring up to 5 L nasal cannula during hospitalization. CTA chest on admit showed no PE, did show bilateral pleural effusions left greater than right along with bilateral miliary pulmonary nodules with lytic lesions in thoracic spine suggestive of metastatic disease; also showed mild cardiomegaly with mild pericardial effusion. Notably, echo showed no pericardial effusion. S/p left-sided thoracentesis on 07/03 with 129 0 mL of red-tinged colored fluid removed. Repeat chest x-ray showed improvement in left-sided pleural effusion. Does continue to require 4 L nasal cannula at rest, wean as able. Continue inhalers as needed. 3. Recent bilateral subsegmental PE ? CTA chest on 06/11 showed small bilateral subsegmental PE without evidence of right heart strain. It is presumed this PE was secondary to lung disease. Continue home Eliquis. 4. Metastatic prostate cancer ? Diagnosed with metastatic prostate cancer on recent admission in mid June. CT chest abdomen pelvis then showed markedly enlarged prostate, multiple scattered lytic lucencies noted throughout visualized osseous structures concerning for metastasis, and diffuse miliary nodules in lungs also concerning for metastases. Had left-sided thoracentesis done during that hospitalization. Unfortunately had recurrence of lisinopril effusion with repeat thoracentesis done on 07/03 as noted above. Hospice was consulted per family request and plan is for family meeting with hospice this afternoon, will follow-up on this. 5. Hypertension ? Continue home losartan. DVT prophylaxis: Not indicated, on Eliquis CODE STATUS: DNR CCA, DNI Expected disposition: TBD Total clinical time spent by myself addressing the patient's medical issues, reviewing all the data, and collaborating with patient's care team: 35 minutes. Charges/Coding Visit Charges Inpatient E&M: 78956 Subs Hosp L2
--- NOTE | 2024-07-04 15:42 | CASEMGMT ---
Social Work SW met with [facility] nurse who states pt signed with hospice services and will return home with hospice. DME will be delivered in the home tomorrow and pt can be discharged at that time. Physician notified. KLEVER Nolasco
[2024-07-04 16:40] VITALS: BP 127/80; PULSE 84; RESP 18; TEMP 36.7; O2SAT 98
[2024-07-04 19:59] VITALS: BP 131/69; PULSE 88; RESP 18; TEMP 36.8; O2SAT 95
[2024-07-04] MEDS: MELATONIN 3 MG TABLET PO (22:19)
[2024-07-05 05:05] VITALS: BP 137/90; PULSE 76; RESP 16; TEMP 36.7; O2SAT 95
[2024-07-05 05:22] LABS: Absolute Lymphocyte Count 0.82 X10^3/uL (0.83-4.51); Absolute Neutrophil Count 7.9 X10^3/uL (2.0-7.7); Basophil# 0.08 X10^3/uL; Basophil% 0.8 % (0-1); Eosinophil# 0.72 X10^3/uL; Hematocrit 33.4 % (40-54); Hemoglobin 11.3 g/dL (13.0-16.5); Lymphocyte # 0.82 X10^3/ul (0.83-4.51); Mean Corp Hgb Conc 33.8 g/dL (32-36); Mean Corpuscular Hgb 29.2 pg (27.0-32.0); Mean Corpuscular Volume 86.3 fL (80-94); Mean Platelet Vol. 9.2 fl (6.2-12.0); Monocyte# 0.54 X10^3/uL; Monocyte% 5.3 % (0-10); NRBC Flagged by Analyzer 0 % (0-5); Neutrophil # 7.88 X10^3/uL (2.7-7.7); Neutrophil % 76.8 % (47-70); Platelet Count 250 K/mm3 (150-450); RBC Distribution Width CV 12.3 % (11.6-14.6); RBC Distribution Width SD 38.6 fl (35.1-43.9); Red Blood Count 3.87 M/mm3 (4.6-6.2); White Blood Count 10.3 K/mm3 (4.4-11.0)
[2024-07-05 05:55] LABS: Anion Gap 12 (5-15); BUN 18 mg/dL (4-19); BUN/Creat Ratio 19.3 RATIO (10-20); Calcium,Total 8.5 mg/dL (7.6-11.0); Carbon Dioxide 22.4 mmol/L (21.0-32.0); Chloride 99 mmol/L (98-108); Creatinine, Serum 0.95 mg/dL (0.70-1.20); EST Glomerular Filtration Rate 79 (>60); Glucose 105 mg/dL (70-99); Potassium 3.9 mmol/L (3.3-5.1); Sodium Level 134 mmol/L (133-145)
[2024-07-05 10:00] VITALS: BP 129/71; PULSE 83; RESP 18; TEMP 36.9; O2SAT 97
[2024-07-05] MEDS: BICALUTAMIDE 50 MG TABLET 150 MG PO (10:08)
[2024-07-05] MEDS: guaiFENesin 600 MG Tablet PO (10:08)
[2024-07-05] MEDS: Losartan Potassium 50 MG Tablet PO (10:08)
[2024-07-05] MEDS: Cholecalciferol (Vit D3) 125 MCG CAPSULE (5,000 UNITS) PO (10:08)
[2024-07-05] MEDS: Ascorbic Acid 500 MG Tablet 1000 MG PO (10:08)
[2024-07-05] MEDS: Lactobacillis Acidophilus 1 CAP PO (10:08)
[2024-07-05] MEDS: Zinc Sulfate 50 mg zinc (220 mg) ORAL capsule PO (10:08)
[2024-07-05] MEDS: APIXABAN 5 MG TABLET PO (10:08)
[2024-07-05 10:10] VITALS: O2SAT 97
--- NOTE | 2024-07-05 11:56 | DCINST_ITS ---
Discharge Instructions Diet Discharge Diet: Low fat / Low cholesterol DC O2, CPAP, BIPAP needs Home O2 Discharge instructions: Yes Type of respiratory needs?: Oxygen (5) Oxygen frequency: Continuous Continuous oxygen liters per minute: 5 Dressing / Incision Weight Bearing Status: Weight bearing as tolerated Dressing / Incision Call your doctor if you observe: Fever of 101 or Higher, Shortness of breath, Dizziness, Swelling in the ankles and Chest pain Follow Up Care Test Results: Test results from this visit will be discussed in further detail at your follow- up appointment, if applicable. Discharge Plan Admission Admit Date/Time: 06/28/24 23:31 Primary Reason for Your Visit: recurrent malignant pleural effusion Attending Provider: Sofi Mott Primary Care Provider: Quentin Geurra Consulting Providers: Rio Cardona; Arnaldo Bello; Prosper Villegas; Della Harris; Yusra Pulido; Elvira Ward; Denny Sun; Ewelina Nguyen; Howard Shoemaker; Christian Burnett; Rodrigo Mak; Regina Stone; Saman Cantor; Shana Mg; Tess León; Howie Mosqueda; Tevin Moraes; Raul Gabriel; Russell Asencio; Milady Garza; Cecille Mahan; Jessie Abel; Rio Jarquin; Irena Mcgee; Stacy Pearson; Heidy Borja; Willow Betancourt NP; Sydney Mendieta; Sofi Mott; Adrian Gaston Instructions Patient Instructions: Understanding Pleural Effusion, ED Pleural Effusion Additional Instructions / Restrictions: use oxygen for shortness of breath as needed. Discharge Orders/Prescriptions Prescriptions: New atorvastatin 20 mg Tablet 20 mg PO QHS Qty: 30 1RF aspirin 81 mg Tablet,Chewable 81 mg PO BREAKFAST Qty: 30 2RF Continued losartan 50 mg tablet 50 mg PO DAILY bicalutamide 50 mg Tablet 150 mg PO DAILY Qty: 30 0RF acetaminophen 500 mg Tablet 1,000 mg PO Q8 PRN (Reason: Pain) Qty: 0 0RF apixaban 5 mg tablet 5 mg PO BID Qty: 90 0RF Referrals / Follow Up: Quentin Guerra PA-C [Primary Care Provider] - 07/09/24 3:00 pm Herminio Larose MD [Med Staff - Active Staff] - Within 2 Weeks Disposition Disposition (needs filled in before D/C Order can be placed): Hospice in Home
--- NOTE | 2024-07-05 11:57 | DS.PCM_ITS ---
Providers Date of Admission: 06/28/24 Date of Discharge: 07/05/24 Primary Care Physician: Quentin Guerra PA-C Consultations 06/29/24 08:04 Consult: Tele-Neurology Routine Consulting Provider: [facility] Reason for Consult: Acute Ischemic Stroke/TIA EMERGENT Consult: No Notified: Yes Date Notified: 06/29/24 Time Notified: 08:13 Method of Notification: Answering Service Nursing Unit Staff Notify [facility] of Tele-Neurology Consult: Yes 07/03/24 15:54 Consult: Hospice / Palliative Care Routine Consulting Provider: [facility] Reason for Consult: metastatic prostate cancer EMERGENT Consult: No Notified: Yes Date Notified: 07/03/24 Time Notified: 16:03 Method of Notification: per marriage and family social worker Reason For Visit: PNA, MALIGNANT PLEURAL EFFUSION, ELEVATED TROPONIN Diagnosis Discharge Diagnosis (1) CVA (cerebral vascular accident): Status: Acute Code(s): I63.9 - Cerebral infarction, unspecified (2) Generalized weakness: Status: Acute Code(s): R53.1 - Weakness (3) Malignant pleural effusion: Status: Acute Code(s): J91.0 - Malignant pleural effusion (4) Prostate cancer metastatic to lung: Status: Acute Code(s): C61 - Malignant neoplasm of prostate; C78.00 - Secondary malignant neoplasm of unspecified lung Plan #Hypoxia due to Malignant pleural effusion * Has a history of 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 * thoracentesis was ordered today, but he could not have it due to being on aspirin 325mg. * to have thoracentesis today * breathing treatment with bronchodilators. * patient counseled that he could have a pleurx catheter also inserted eventually to help with recurrence of the effusion. He will discuss this with his PCP and urologist. * #Acute CVA * Was admitted with lower extremity weakness and difficulty ambulating. He had left distal foot weakness and foot drop. * MRI of the brain showed multifocal punctate areas of ischemia which was thought to be due to underlying hypercoagulability due to prostate cancer. * On Eliquis but this is on hold placed on heparin drip pending thoracentesis. * 2D echo showed EF of 50% with no diastolic dysfunction. * Carotid ultrasound showed mild less than 50% right extracranial internal carotid artery stenosis and mild left extracranial internal carotid stenosis. Stroke alert emergency room * Aspirin 325 mg daily discontinued and patient placed on aspirin 81 mg daily. On high intensity statin #Debility and weakness: Likely due to metastatic prostate cancer. PT OT on board. Fall precautions. #Bilateral subsegmental PE * Currently on heparin drip. Once he has thoracentesis will switch back to Eliquis. #Benign essential hypertension: On losartan. IV hydralazine as needed #DVT prophylaxis: Currently on heparin drip. Disposition: anticipate dc over the next 1-2 days. Medications at Discharge Home Medications losartan 50 mg tablet 50 mg PO DAILY blood pressure 06/11/24 acetaminophen 500 mg tablet 1,000 mg (2 x 500 mg) PO Q8 PRN Pain #0 tabs 06/13/24 bicalutamide 50 mg tablet 150 mg (3 x 50 mg) PO DAILY cancer #30 tabs 06/13/24 apixaban 5 mg tablet 5 mg PO BID blood thin #90 tabs 07/05/24 aspirin 81 mg chewable tablet 81 mg PO BREAKFAST #30 tabs 07/05/24 atorvastatin 20 mg tablet 20 mg PO QHS #30 tabs 07/05/24 oxycodone 5 mg tablet 5 mg PO Q6H PRN pain 3 days #12 tabs 07/05/24 Hospital Course Operations None Procedures Thoracentesis Summary of Care Provided Minutes Spent on Discharge: 45 Hospital Course: Patient is an 83-year-old male with an extensive past medical history as outlined including history of bilateral PE diagnosed in June 2024 for which she was on Eliquis as well as 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 Symptoms are started about 2 weeks prior to admission but abruptly worsened so he came into the ED. The weakness was worse in his lower extremities. He was admitted to intermittent lightheadedness in association with a cough which was blood-streaked. Chest x-ray showed bilateral infiltrates worse on the left with a moderate left pleural effusion and mild right pleural effusion. He was admitted and managed for pneumonia probably hospital-acquired and likely postobstructive also in the light of metastatic prostate cancer. He was started on IV vancomycin and Zosyn. Urine for strep and Legionella were negative. He was also managed for recurrent pleural effusion. He was kept n.p.o. for thoracentesis. However Eliquis had to be held for several days in order for him to have the thoracentesis. Hospital course was complicated by patient having left distal foot weakness and foot drop so MRI of the brain was done which showed multifocal punctate areas of ischemia which was thought to be due to underlying hypercoagulability due to prostate cancer. 2D echo showed EF of 50% with no diastolic dysfunction. Carotid ultrasound done showed mild less than 50% right extracranial internal carotid artery stenosis and mild left extracranial internal carotid stenosis. He was placed on aspirin 81 mg daily as well as high intensity statin in addition to the Eliquis. Neurology did review him during this admission. Patient had a left-sided thoracentesis done on 07/03/2024 with drainage of 1.29 L of blood-tinged fluid. Patient still however required 4 to 5 L of oxygen even after the thoracentesis. He completed a course of antibiotics. Patient was counseled about the need for possible Pleurx catheter insertion. Patient however eventually opted for hospice evaluation. He decided to go home with hospice on 07/05/2024 and was discharged with 5 L of oxygen. He is follow-up with his primary care doctor within 1 to 2 weeks. He was continued on his Eliquis as well as aspirin and statin. Patient seen and examined. He had no active complaints. Review of systems was otherwise negative. Labs and vitals revewed. Home meds reviewed and reconciled. Physical Exam Const alert, oriented x3, no apparent distress and average body habitus Constitutional Narrative: frail General Appearance: cooperative and comfortable HEENT normocephalic, head/scalp atraumatic, hearing grossly normal bilaterally and moist oral mucous membranes Mouth: oral and palatal mucosa normal Eyes PERRL, EOMs intact bilaterally and conjunctivae normal Neck full ROM, no lymphadenopathy, supple and no JVD Lymph Lymphatic: no lymphadenopathy noted and no lymphedema noted Chest inspection of chest normal Resp normal respiratory effort, no retractions and no use of accessory muscles Resp Narrative: mildly diminished breath sounds bilaterally, mild wheezing, no crackles. On 5L of oxygen by nasal canula Cardio regular rate, regular rhythm, S1 normal heart sound, S2 normal heart sound, no murmurs and peripheral pulses 2+ throughout GI normal to inspection, nondistended, normoactive bowel sounds, soft to palpation, non-tender and non-distended Back/Spine normal ROM Extremity normal to inspection, full ROM, normal capillary refill, no clubbing, cyanosis or edema, no calf tenderness and no pedal edema General Extremity: no tenderness to palpation of joints or extremities Skin no rashes or lesions noted General Skin Exam: no breakdown Neuro oriented x3, CN's II-XII intact bilaterally, moves all extremities, no focal motor deficits and no sensory deficits noted Sensorium / Orientation: awake, alert, oriented to person, oriented to place and oriented to time Motor Exam: strength 5/5 throughout Psych mental status grossly normal, thought process normal, cooperative and affect normal Appearance: appropriate Weight / BMI Weight Weight: 162 lb 14.746 oz Body Mass Index (BMI) 23.3 ABG / Lab / Microbiology Data 07/05/24 04:57 07/05/24 04:57 Laboratory: Laboratory Results - last 24 hr 07/05/24 04:57: WBC 10.3, RBC 3.87 L, Hgb 11.3 L, Hct 33.4 L, MCV 86.3, MCH 29.2, MCHC 33.8, RDW Std Deviation 38.6, RDW Coeff of Clarissa 12.3, Plt Count 250, MPV 9.2, Immature Gran % (Auto) 2.100 H, Neut % (Auto) 76.8 H, Lymph % (Auto) 8.0 L, [place] % (Auto) 5.3, Eos % (Auto) 7.0 H, Baso % (Auto) 0.8, Absolute Neuts (auto) 7.9 H, Absolute Lymphs (auto) 0.82 L, Nucleated RBC % 0, Sodium 134, Potassium 3.9, Chloride 99, Carbon Dioxide 22.4, Anion Gap 12, BUN 18, Creatinine 0.95, Estim Creat Clear Calc 58.70, Est GFR (MDRD) Non-Af 79, BUN/Creatinine Ratio 19.3, Glucose 105 H, Calcium 8.5 Microbiology: Microbiology 06/28/24 10:20 Blood Culture (Wb) - Right Wrist Blood Culture - Final No growth in 5 days. 06/28/24 10:32 Blood Culture (Wb) - Arm Left Blood Culture - Final No growth in 5 days. 06/29/24 00:26 Urine, Clean Catch Legionella Antigen - Final 06/29/24 00:26 Urine, Clean Catch Streptococcus pneumoniae Antigen (M - Final 06/28/24 21:30 Nasal Secretion MRSA (PCR) - Final D/C Instructions Discharge Diet: Low fat / Low cholesterol Discharge Activity: Return to Normal Activity Weight Bearing Status: Weight bearing as tolerated Call your doctor if you observe: Fever of 101 or Higher, Shortness of breath, Dizziness, Swelling in the ankles and Chest pain DC O2, CPAP, BIPAP Needs Home O2 Discharge instructions: Yes Type of respiratory needs?: Oxygen (5) Oxygen frequency: Continuous Continuous oxygen liters per minute: 5 DC home with Oxygen: Yes Home O2 MD Review: I have reviewed the oxygen testing, and the patient qualifies for home oxygen equipment and portability. The patient is mobile in the home and the community. Meaningful Use Info Meaningful Use Meaningful Use Diagnoses (Choose all that apply): Ischemic CVA CVA Therapy Assessed for PT,OT and/or ST?: Yes Ischemic Stroke Antithrombotic order at d/c?: Yes Dx of Atrial fib/flutter?: No Anticoagulant at discharge?: Yes Statin Dosing Therapy Reference: STATIN DOSE THERAPY REFERENCE: * Patients > 75 years receive moderate or high dose statin therapy. * Patients 75 years or YOUNGER should receive HIGH intensity statin dose unless contraindicated. You will be required to document reason for non-treatment if statin daily dose does not meet guidelines. HIGH DOSE STATIN THERAPY DAILY Atorvastatin > than or = to 40 mg Rosuvastatin > than or = to 20 mg Amlodipine + Atorvastatin > than or = to 2.5/40 mg Ezetimibe + Simvastatin 10/80 mg Simvastatin 80mg Statins at discharge?: Yes Primary Dx Acute Ischemic CVA?: Yes IV thrombolytic ordered during stay?: No Reason IV thrombolytic not ordered: Drug Interaction Discharge Plan Admission Admit Date/Time: 06/28/24 23:31 Primary Reason for Your Visit: recurrent malignant pleural effusion Attending Provider: Sofi Mott Primary Care Provider: Quentin Guerra Consulting Providers: Rio Cardona; Arnaldo Bello; Prosper Villegas; Della Harris; Yusra Pulido; Elvira Ward; Denny Sun; Ewelina Nguyen; Howard Shoemaker; Christian Burnett; Rodrigo Mak; Regina Stone; Saman Cantor; Shana Mg; Tess León; Howie Mosqueda; Tevin Moraes; Raul Gabriel; Russell Asencio; Milady Garza; Cecille Mahan; Jessie Abel; Rio Jarquin; Irena Mcgee; Stacy Pearson; Heidy Borja; Willow Betancourt NP; Sydney Mendieta; Sofi Mott; Adrian Gaston Instructions Patient Instructions: Understanding Pleural Effusion, ED Pleural Effusion Additional Instructions / Restrictions: use oxygen for shortness of breath as needed. Discharge Orders/Prescriptions Prescriptions: New atorvastatin 20 mg Tablet 20 mg PO QHS Qty: 30 1RF aspirin 81 mg Tablet,Chewable 81 mg PO BREAKFAST Qty: 30 2RF oxycodone 5 mg tablet 5 mg PO Q6H PRN (Reason: pain) 3 Days Qty: 12 0RF Continued losartan 50 mg tablet 50 mg PO DAILY bicalutamide 50 mg Tablet 150 mg PO DAILY Qty: 30 0RF acetaminophen 500 mg Tablet 1,000 mg PO Q8 PRN (Reason: Pain) Qty: 0 0RF apixaban 5 mg tablet 5 mg PO BID Qty: 90 0RF Referrals / Follow Up: Quentin Guerra PA-C [Primary Care Provider] - 07/09/24 3:00 pm Herminio Larose MD [Med Staff - Active Staff] - Within 2 Weeks Disposition Disposition (needs filled in before D/C Order can be placed): Hospice in Home Charges/Coding Visit Charges Inpatient E&M: 38910 Disch Hosp >30min
--- NOTE | 2024-07-05 12:41 | CASEMGMT ---
Social Work Per physician, pt is ready for discharge. KENIA met with pt and pt's son in law. Family has brought a portable oxygen tank in and feel pt can be transported home in the family car. KENIA notified Nicolás with [facility] of discharge and Nicolás will meet with pt once he returns home to open case. Discharge orders faxed to [facility]. Disposition: Home with hospice services. KLEVER Nolasco
[2024-07-05 14:00] VITALS: BP 131/67; PULSE 78; RESP 16; TEMP 37; O2SAT 96
== END 2024-07-05 15:24 | disposition hospice, home (50) | DRG 180 ==
LOC: ED 22:29 → PCU 06-29 05:25
PROVIDERS: Family Medicine; Internal Medicine; Admitting Provider Internal Medicine; Emergency Provider Emergency Medicine; PCP Physician Assistant; Referring Provider Internal Medicine; Visit Provider Student in an Organized Health Care Education/Training Program
DX: C78.02 Secondary malignant neoplasm of left lung (principal); J18.9 Pneumonia, unspecified organism; I63.89 Other cerebral infarction; J96.01 Acute respiratory failure with hypoxia; I26.94 Multiple subsegmental thrombotic pulmonary emboli without acute cor pulmonale; J91.0 Malignant pleural effusion; D68.69 Other thrombophilia; D64.9 Anemia, unspecified; C61 Malignant neoplasm of prostate; E86.0 Dehydration; I10 Essential (primary) hypertension; C78.01 Secondary malignant neoplasm of right lung; J32.4 Chronic pansinusitis; R26.2 Difficulty in walking, not elsewhere classified; M21.372 Foot drop, left foot; Z66 Do not resuscitate; R53.81 Other malaise; R29.702 NIHSS score 2; Y95 Nosocomial condition; Z79.01 Long term (current) use of anticoagulants; Z79.899 Other long term (current) drug therapy; Z98.890 Other specified postprocedural states; Z87.19 Personal history of other diseases of the digestive system
CPT/HCPCS: 32555; 36415; 70450; 70496; 70498; 70551; 71046; 71275; 80048; 80053; 80061; 80202; 81001; 82607; 82962; 83605; 83735; 83880; 84100; 84443; 84484; 85025; 85610; 85730; 87040; 87449; 87641; 93005; 93306; 93880; 94668; 97110; 97116; 97163; 97166; 97530; 97535; 99285; Q9967; A4216; J0696